=== PATIENT | female | born 1950 | race Caucasian/White ===

== ENCOUNTER 2018-09-15 16:38 | Inpatient (IN) | payer MEDICARE ==
[2018-09-15] MEDS ORDERED: HumaLOG 300 UNITS/3 ML VIAL SC PRN ×2 (19:34)
[2018-09-15] MEDS ORDERED: Dextrose 50% Abboject 50 ML SYRINGE IVP PRN (19:34)
[2018-09-15] MEDS ORDERED: Dextrose 5% in Water 1,000 ML IV PRN (19:34)
[2018-09-15] MEDS ORDERED: Acetaminophen 500 MG TAB PO PRN (19:35)
[2018-09-15] MEDS: Carvedilol 6.25 MG TAB PO SCH (21:05)
[2018-09-15] MEDS: HYDROcodone/Acetaminophen 10/325 mg Tablet PO SCH (21:06)
[2018-09-15] MEDS: Vancomycin HCl 750 MG in Sodium Chloride 0.9% 250 ML 250 ML IVPB SCH (21:08)
[2018-09-15] MEDS: Pravastatin Sodium 20 MG TAB PO SCH (21:09)
[2018-09-15] MEDS: Loratadine 10 MG TAB PO SCH (21:09)
[2018-09-15] MEDS: Temazepam 15 MG CAP PO PRN (22:56)
[2018-09-16] MEDS: HYDROcodone/Acetaminophen 10/325 mg Tablet PO PRN ×4 (01:10→21:31)
[2018-09-16] MEDS: Aspirin 81 mg Enteric Coated Tablet PO SCH (08:48)
[2018-09-16] MEDS: HYDROcodone/Acetaminophen 10/325 mg Tablet PO SCH (08:49)
[2018-09-16] MEDS: Escitalopram Oxalate 20 mg Tablet PO SCH (08:49)
[2018-09-16] MEDS: Docusate 100 MG CAP PO SCH (08:49)
[2018-09-16] MEDS: Carvedilol 6.25 MG TAB PO SCH (08:50)
[2018-09-16] MEDS: Calcium Acetate 667 MG CAP PO SCH ×3 (08:50→17:28)
[2018-09-16] MEDS: Folic Acid/Vit B Comp W-C PO SCH (09:55)
[2018-09-16] MEDS: traMADol HCl 50 MG TAB PO PRN (15:26)
--- NOTE | 2018-09-16 18:27 | HP ---
PRINCIPAL DIAGNOSIS: Infection of hardware in her right knee, requiring removal of hardware and placement of knee immobilizer and vancomycin with hemodialysis. BRIEF HISTORY: This is a pleasant 67-year-old female, who apparently suffered an intra-articular fracture of the right distal femur, requiring open reduction and internal fixation. This unfortunately got infected and cultures grew MRSA. She was admitted for debridement of the infected area, removal of hardware, placement of immobilizer and vancomycin until November [address] Mckeon for resistant MRSA. She is also on hemodialysis for end-stage renal disease and that will be done in [place] on Thursday, Thursday, Thursday. She is also here for therapy. The patient is resting comfortably except for pain. She denies any fever or chills. She denies any chest pain or shortness of breath. She apparently does have anxiety and has episodes of crying spells and she apparently was crying pretty much most of the night yesterday, but is doing much better this morning. No family at bedside. PAST MEDICAL HISTORY: 1. Dyslipidemia. 2. Coronary artery disease. 3. Gastroesophageal reflux disease. 4. Osteoporosis. 5. Allergic rhinitis. 6. End-stage renal disease, on hemodialysis. 7. History of breast cancer. 8. Depression and anxiety. PAST SURGICAL HISTORY: 1. Right mastectomy. 2. Coronary artery bypass grafting. 3. Nephrectomy. 4. Two partial hysterectomy and multiple AV fistulas and revisions. 5. History of ileostomy. 6. History of aortic valve repair. 7. History of right knee surgery for distal right femur fracture. ALLERGIES: TO ATORVASTATIN, CEFUROXIME, MEPERIDINE, AND NITROFURANTOIN. FAMILY HISTORY: Positive for Parkinson disease in her mother and CVA in her father. PSYCHOSOCIAL HISTORY: Denies any tobacco, alcohol, or recreational drug use. REVIEW OF SYSTEMS: CARDIOVASCULAR SYSTEM: Denies any chest pain, shortness of breath, palpitations, PND, orthopnea, or pedal edema. RESPIRATORY SYSTEM: Denies any chronic cough, expectoration, or pleuritic-type chest pain. GASTROINTESTINAL SYSTEM: Denies any nausea, vomiting, diarrhea, constipation, hematemesis, melena, or hematochezia. GENITOURINARY SYSTEM: Denies any frequency, urgency, dysuria, or hematuria. She is on long-term hemodialysis. CENTRAL NERVOUS SYSTEM: Denies any focal numbness, weakness, or fainting spells. EXTREMITIES: Complains of right knee and leg pain. HEENT: Denies any difficulty with speech, vision, hearing or swallowing. SKIN: Denies any rash. PHYSICAL EXAMINATION: GENERAL: A pleasant 67-year-old, thin, female, in no apparent distress. She responds appropriate to questions. She is alert, awake, and oriented x3. VITAL SIGNS: She is afebrile. Heart rate 76, respirations 20, oxygen saturation 94% on room air, blood pressure 107/48. HEENT: Normocephalic, atraumatic. Pupils equal and reactive to light and accommodation. Extraocular muscles intact. NECK: No JVD, thyromegaly, cervical lymphadenopathy, or throat exudates. No carotid bruits. CARDIOVASCULAR SYSTEM: S1 and S2 plus. Rate and rhythm regular. RESPIRATORY SYSTEM: Normal vesicular breath sounds heard in all lung sanchez. ABDOMEN: Soft and nontender. Bowel sounds heard in all quadrants. EXTREMITIES: Without cyanosis or clubbing. Right knee in a knee immobilizer. CENTRAL NERVOUS SYSTEM: AAO x3. Cranial nerves 2 through 12 intact. Motor system examination is grossly nonfocal except for weakness because of her right knee immobilization. LABORATORY VALUES: Last laboratory values were done on September 14. White count is 10.2, H and H are 9.8 and 33.5. Chemistry; sodium 133, potassium 4.0, BUN and creatinine are 36 and 3.61. Laboratory values were not done here, because she has no stick in both arms and I did not want to stick her in her legs unless it is absolutely necessary. Plan is to have her labs done during dialysis and have them fax us the report. IMPRESSION: 1. Infection of the hardware, used for right distal femur fracture, requiring removal of hardware and placement of immobilizer. Infection is possibly methicillin-resistant Staphylococcus aureus and she is on vancomycin with hemodialysis until November 09. 2. Coronary artery disease. 3. Dyslipidemia. 4. End-stage renal disease, on hemodialysis. 5. Depression and anxiety. 6. Hyponatremia. 7. Anemia of chronic disease. 8. History of breast cancer. PLAN: 1. Continue current medications. 2. Simplify her pain regimen by making tramadol 50 mg q.6 routine and Murray 10/325 q.4 p.r.n. 3. Continue vancomycin with hemodialysis. 4. She is on contact isolation for MRSA even though it is in her joints. 5. Nutritional support with heart healthy renal diet. 6. Hemodialysis, Thursday, Thursday, Thursday and labs with hemodialysis. 7. Continue knee immobilization, orthopedic precautions, and incision care. 8. PT/OT eval and treat. 9. DVT prophylaxis. She does get heparin with hemodialysis and she is on aspirin 81 mg daily and along with therapy, her risk is low. We will get her on heparin 5000 units subcu b.i.d. Routine laboratory values during dialysis. Monitor cardiovascular system. She is already on Lexapro 20 mg. We will add Wellbutrin and discontinue the Celexa. Discussed with the patient and nursing in detail. All questions answered. Job ID: [id number]
[2018-09-16] MEDS: Temazepam 15 MG CAP PO PRN (21:30)
[2018-09-16] MEDS: Loratadine 10 MG TAB PO SCH (21:31)
[2018-09-16] MEDS: Pravastatin Sodium 20 MG TAB PO SCH (21:31)
[2018-09-16] MEDS: buPROPion HCl 100 MG TAB PO SCH (21:33)
[2018-09-17 06:20] LABS: ALT (SGPT) 15 U/L (8-55); AST (SGOT) 21 U/L (5-34); Alkaline Phosphatase 270 U/L (40-150); Anion Gap 20 mmol/L (10-20); BUN (Urea Nitrogen) 62 mg/dL (9.8-20.1); Bilirubin, Total 0.4 mg/dL (0.2-1.2); Calc. Creatinine Clearance 8 mL/min (70-130); Calcium 8.9 mg/dL (7.8-10.44); Carbon Dioxide 18 mmol/L (23-31); Chloride 94 mmol/L (98-107); Estimated GFR-MDRD 8; Globulin 3.9 g/dL (2.4-3.5); Glucose 94 mg/dL (80-115); Protein, Total 6.9 g/dL (6.0-8.3); Sodium 127 mmol/L (136-145)
[2018-09-17 06:28] LABS: #Basophils 0.2 thou/uL (0.0-0.2); #Eosinphils 1.1 thou/uL (0.0-0.7); #Lymphocytes 1.6 thou/uL (1.20-3.40); #Monocytes 0.8 thou/uL (0.11-0.59); #Neutrophils 4.6 thou/uL (1.40-6.50); %Basophils 2.1 % (0.0-1.0); %Eosinophils 12.8 % (0.0-10.0); %Lymphocytes 19.9 % (21.0-51.0); %Monocytes 9.1 % (0.0-10.0); Hemoglobin 8.9 g/dL (12.0-16.0); Mean Corpuscular HGB CONC 28.7 g/dL (32.0-36.0); Mean Corpuscular Hemoglobin 26.7 pg (27.0-31.0); Mean Corpuscular Volume 93.1 fL (78.0-98.0); Mean Platelet Volume 6.5 fL (7.4-10.4); Platelet Count 381 thou/uL (130-400); RBC Distribution Width 19.2 % (11.5-14.5); Red Blood Cell (RBC) Count 3.35 mill/uL (4.20-5.40); White Blood Cell (WBC) Count 8.2 thou/uL (4.8-10.8)
[2018-09-17 06:29] LABS: Anisocytosis SLIGHT = 6-15 cells (100X) (0-5/hpf); Crenated RBC SLIGHT = 1-5 cells (100X) (None Seen); Hypochromia SLIGHT = 6-15 cells (100X) (0-5/hpf); MDiff Complete? YES; Platelet Morphology Comment Appears Adequate
[2018-09-17] MEDS: HYDROcodone/Acetaminophen 10/325 mg Tablet PO PRN ×3 (07:53→20:55)
[2018-09-17] MEDS: Calcium Acetate 667 MG CAP PO SCH ×3 (08:20→17:34)
--- NOTE | 2018-09-17 10:31 | PRG ---
DATE OF SERVICE: 09/17/2018 SUBJECTIVE: Ms. Alarcon was seen on her way to dialysis. She apparently is still having some crying spells. She was started on Wellbutrin. No family at bedside. Discussed with nursing. OBJECTIVE: VITAL SIGNS: She is afebrile. Heart rate 81, respirations 20, oxygen saturation 95% on room air, blood pressure 127/59. CARDIOVASCULAR: S1, S2 plus. RESPIRATORY: Normal vesicular breath sounds. ABDOMEN: Soft, nontender. Bowel sounds heard in all quadrants. EXTREMITIES: Without cyanosis, clubbing. Right knee in an immobilizer. CENTRAL NERVOUS SYSTEM: AO x3. Cranial nerves 2 through 12 intact. Generalized weakness. LABORATORY VALUES: White count is 8.2, H and H is 8.9 and 31.2. Sodium 127, potassium 5.0, BUN and creatinine 62 and 5.49. IMPRESSION: 1. Infection of the right knee surgical repair site requiring removal of hardware and placement of immobilizer. 2. End-stage renal disease. 3. Hyponatremia. 4. Anxiety and depression. 5. Deconditioning. 6. Dyslipidemia. 7. Coronary artery disease. 8. Gastroesophageal reflux disease. 9. Osteoporosis. 10. Allergic rhinitis. PLAN: 1. Continue current medications. 2. Heart healthy, renal diet. 3. Hemodialysis. 4. Continue IV Zosyn. 5. Correction of sodium at dialysis. 6. Monitor response to Wellbutrin. She is already on Lexapro. 7. DVT and stress ulcer prophylaxis. We will start her on heparin 5000 units subcu b.i.d. 8. Continue immobilization, orthopedic precautions. 9. Monitor response to Zosyn. 10. Discussed with the patient in detail. All questions answered. Job ID: [id number]
[2018-09-17] MEDS: Folic Acid/Vit B Comp W-C PO SCH (10:43)
[2018-09-17] MEDS: Aspirin 81 mg Enteric Coated Tablet PO SCH (10:43)
[2018-09-17] MEDS: Carvedilol 6.25 MG TAB PO SCH ×2 (10:43→20:56)
[2018-09-17] MEDS: buPROPion HCl 100 MG TAB PO SCH ×2 (10:43→20:56)
[2018-09-17] MEDS: Escitalopram Oxalate 20 mg Tablet PO SCH (10:43)
[2018-09-17] MEDS: Docusate 100 MG CAP PO SCH (10:43)
[2018-09-17] MEDS: Vancomycin HCl 750 MG in Sodium Chloride 0.9% 250 ML 250 ML IVPB SCH (11:28)
[2018-09-17] MEDS: Temazepam 15 MG CAP PO PRN (20:54)
[2018-09-17] MEDS: Pravastatin Sodium 20 MG TAB PO SCH (20:56)
[2018-09-17] MEDS: Loratadine 10 MG TAB PO SCH (20:56)
[2018-09-17] MEDS: Heparin 5,000 UNITS/ML VIAL SC SCH (20:57)
[2018-09-18] MEDS: HYDROcodone/Acetaminophen 10/325 mg Tablet PO PRN ×3 (04:55→21:03)
[2018-09-18] MEDS: Heparin 5,000 UNITS/ML VIAL SC SCH ×2 (08:58→21:04)
[2018-09-18] MEDS: Calcium Acetate 667 MG CAP PO SCH ×3 (09:00→17:51)
[2018-09-18] MEDS: traMADol HCl 50 MG TAB PO PRN (09:00)
[2018-09-18] MEDS: Aspirin 81 mg Enteric Coated Tablet PO SCH (09:01)
[2018-09-18] MEDS: buPROPion HCl 100 MG TAB PO SCH ×2 (09:01→21:04)
[2018-09-18] MEDS: Docusate 100 MG CAP PO SCH ×2 (09:01→21:05)
[2018-09-18] MEDS: Carvedilol 6.25 MG TAB PO SCH ×2 (09:01→21:03)
[2018-09-18] MEDS: Escitalopram Oxalate 20 mg Tablet PO SCH (09:01)
[2018-09-18] MEDS: Folic Acid/Vit B Comp W-C PO SCH (11:05)
[2018-09-18] MEDS: Temazepam 15 MG CAP PO PRN (21:03)
[2018-09-18] MEDS: Loratadine 10 MG TAB PO SCH (21:04)
[2018-09-18] MEDS: Pravastatin Sodium 20 MG TAB PO SCH (21:04)
[2018-09-19] MEDS: HYDROcodone/Acetaminophen 10/325 mg Tablet PO PRN ×2 (06:29→13:35)
[2018-09-19] MEDS: Ondansetron ODT 4 MG TAB PO PRN ×2 (09:07→20:35)
[2018-09-19] MEDS: Polyethylene Glycol 3350 17 GM Packet PO SCH (09:08)
[2018-09-19] MEDS: Aspirin 81 mg Enteric Coated Tablet PO SCH (09:09)
[2018-09-19] MEDS: Escitalopram Oxalate 20 mg Tablet PO SCH (09:11)
[2018-09-19] MEDS: buPROPion HCl 100 MG TAB PO SCH ×2 (09:11→20:26)
[2018-09-19] MEDS: Calcium Acetate 667 MG CAP PO SCH ×3 (09:11→17:47)
[2018-09-19] MEDS: Carvedilol 6.25 MG TAB PO SCH (09:12)
[2018-09-19] MEDS: traMADol HCl 50 MG TAB PO PRN ×2 (09:12→17:47)
[2018-09-19] MEDS: Folic Acid/Vit B Comp W-C PO SCH (09:13)
[2018-09-19] MEDS: Heparin 5,000 UNITS/ML VIAL SC SCH ×2 (09:13→20:27)
[2018-09-19] MEDS: Docusate 100 MG CAP PO SCH ×2 (09:14→20:27)
--- NOTE | 2018-09-19 19:51 | PRG ---
DATE OF SERVICE: 09/19/2018 SUBJECTIVE: The patient feels well except for muscle spasms and is asking for muscle relaxant that she is not taking any. She states that her back feels well except for occasional spasm. She is having no nausea, vomiting, diarrhea, and is eating well. OBJECTIVE: VITAL SIGNS: Show temperature is 97.9, pulse 82, respirations 20, O2 sats 94% on room air, and blood pressure is 148/86. LUNGS: Clear. CARDIAC: Showed regular rhythm. ABDOMEN: Soft and nontender. EXTREMITIES: Right knee appears to be healing well with immobilizer in place. ASSESSMENT: 1. Resolving methicillin-resistant Staphylococcus aureus infection of right knee, status post removal of hardware and placement of antibiotic beads and placement of immobilizer. 2. End-stage renal disease on hemodialysis, tolerating well. 3. Deconditioning, improving greatly. 4. Anxiety and depression, improved on Lexapro and Wellbutrin. 5. Hyponatremia, improving on fluid restriction. PLAN: 1. Start on cyclobenzaprine 5 mg three times daily as needed for muscle spasm. 2. Continue on IV Zosyn. 3. Continue dialysis. 4. Continue PT and occupational therapy. 5. Continue DVT and stress ulcer prophylaxis. Job ID: [id number]
--- NOTE | 2018-09-19 19:56 | PRG ---
DATE OF SERVICE: 09/18/[address] Ceron. SUBJECTIVE: The patient feels well, lying in bed. No complaints. Nurses state however that she is complaining to them about taking her immobilizer off. She is resting well. No nausea, vomiting, fever, or chills. OBJECTIVE: VITAL SIGNS: Show temperature 98.3, pulse 78, respirations 16, O2 saturations 93% on room air, blood pressure 117/56. LUNGS: Clear. CARDIAC: Showed regular rhythm. ABDOMEN: Soft and nontender. EXTREMITIES: Right knee is in immobilizer, appears to be minimal swelling. No erythema or warmth. ASSESSMENT: 1. Resolving infection of right knee, on vancomycin at dialysis three times weekly. 2. Anxiety and depression, improving on bupropion and Lexapro. 3. End-stage renal disease, on hemodialysis. 4. Coronary artery disease, asymptomatic. 5. Deconditioning, improving with therapy. PLAN: Continue PT/OT. Continue IV vancomycin at dialysis. Continue dialysis three times weekly. Continue DVT and stress ulcer prophylaxis. Job ID: [id number]
[2018-09-19] MEDS: Loratadine 10 MG TAB PO SCH (20:29)
[2018-09-19] MEDS: Pravastatin Sodium 20 MG TAB PO SCH (20:29)
[2018-09-19] MEDS: Temazepam 15 MG CAP PO PRN (21:52)
[2018-09-20] MEDS: HYDROcodone/Acetaminophen 10/325 mg Tablet PO PRN ×4 (00:01→20:48)
[2018-09-20] MEDS: Calcium Acetate 667 MG CAP PO SCH ×3 (08:28→16:35)
[2018-09-20] MEDS: Aspirin 81 mg Enteric Coated Tablet PO SCH (09:30)
[2018-09-20] MEDS: Docusate 100 MG CAP PO SCH ×2 (09:31→20:48)
[2018-09-20] MEDS: Carvedilol 6.25 MG TAB PO SCH ×2 (09:31→20:47)
[2018-09-20] MEDS: buPROPion HCl 100 MG TAB PO SCH ×2 (09:31→20:47)
[2018-09-20] MEDS: Folic Acid/Vit B Comp W-C PO SCH (09:31)
[2018-09-20] MEDS: Escitalopram Oxalate 20 mg Tablet PO SCH (09:31)
[2018-09-20] MEDS: Vancomycin HCl 750 MG in Sodium Chloride 0.9% 250 ML 250 ML IVPB SCH (09:32)
[2018-09-20] MEDS: Heparin 5,000 UNITS/ML VIAL SC SCH ×2 (09:32→20:46)
[2018-09-20] MEDS: Polyethylene Glycol 3350 17 GM Packet PO SCH (09:32)
--- NOTE | 2018-09-20 09:55 | PRG ---
DATE OF SERVICE: 09/20/2018 SUBJECTIVE: Ms. Alarcon was seen on her way to dialysis. She feels like the Wellbutrin is helping. She still is having episodes of depression and crying spells. She is still not tolerating the knee immobilizer. No family at bedside. OBJECTIVE: VITAL SIGNS: She is afebrile, heart rate 74, respirations 20, oxygen saturation 93% on room air, and blood pressure is 146/68. CARDIOVASCULAR SYSTEM: S1 and S2 plus. RESPIRATORY SYSTEM: Normal vesicular breath sounds. ABDOMEN: Soft, nontender. Bowel sounds heard in all quadrants. EXTREMITIES: Without cyanosis or clubbing. Right knee in an immobilizer. IMPRESSION: 1. Right knee hardware infection, requiring removal of hardware and placement of immobilizer. 2. Dyslipidemia. 3. Coronary artery disease. 4. Gastroesophageal reflux disease. 5. Osteoporosis. 6. Allergic rhinitis. 7. End-stage renal disease, on hemodialysis. 8. Depression and anxiety. PLAN: 1. Continue current medications. 2. Orthopedic precautions. 3. Antibiotics. 4. Hemodialysis. 5. Monitor response to Wellbutrin, which is added to the Lexapro. 6. DVT and stress ulcer prophylaxis. 7. Decubitus precautions. 8. Routine laboratory values. 9. Discussed with the patient in detail and all questions answered. Job ID: [id number]
[2018-09-20] MEDS: Cyclobenzaprine 10 MG TAB PO PRN ×2 (14:35→20:47)
[2018-09-20] MEDS: traMADol HCl 50 MG TAB PO PRN (17:59)
[2018-09-20] MEDS: Temazepam 15 MG CAP PO PRN (20:47)
[2018-09-20] MEDS: Pravastatin Sodium 20 MG TAB PO SCH (20:47)
[2018-09-20] MEDS: Loratadine 10 MG TAB PO SCH (20:48)
[2018-09-21] MEDS: Carvedilol 6.25 MG TAB PO SCH ×2 (08:43→08:44)
[2018-09-21] MEDS: Calcium Acetate 667 MG CAP PO SCH ×4 (08:43→17:14)
[2018-09-21] MEDS: Aspirin 81 mg Enteric Coated Tablet PO SCH (08:43)
[2018-09-21] MEDS: buPROPion HCl 100 MG TAB PO SCH ×2 (08:43→21:54)
[2018-09-21] MEDS: Docusate 100 MG CAP PO SCH ×2 (08:44→21:55)
[2018-09-21] MEDS: Polyethylene Glycol 3350 17 GM Packet PO SCH (08:45)
[2018-09-21] MEDS: Heparin 5,000 UNITS/ML VIAL SC SCH ×2 (08:45→21:55)
[2018-09-21] MEDS: Folic Acid/Vit B Comp W-C PO SCH (08:45)
[2018-09-21] MEDS: Escitalopram Oxalate 20 mg Tablet PO SCH (08:45)
[2018-09-21] MEDS: HYDROcodone/Acetaminophen 10/325 mg Tablet PO PRN ×3 (08:45→17:45)
[2018-09-21] MEDS: Cyclobenzaprine 10 MG TAB PO PRN ×2 (08:46→17:45)
[2018-09-21] MEDS: Ondansetron ODT 4 MG TAB PO PRN ×2 (09:32→21:57)
[2018-09-21] MEDS: Cinacalcet HCl 30 MG TAB PO SCH ×2 (12:10→12:11)
--- NOTE | 2018-09-21 14:31 | PRG ---
DATE OF SERVICE: 09/21/2018 SUBJECTIVE: Ms. Alarcon is resting comfortably. She denies any complaints. Discussed with nursing. She is tolerating her hemodialysis and her vancomycin with hemodialysis. No fever or chills. No chest pain. Pain is controlled. Anxiety seems to be getting under control per the patient. OBJECTIVE: VITAL SIGNS: She is afebrile. Heart rate 90, respirations 16, oxygen saturation 92% on room air, and blood pressure 146/68. CARDIOVASCULAR SYSTEM: S1 and S2 plus. RESPIRATORY SYSTEM: Normal vesicular breath sounds. ABDOMEN: Soft, nontender. Bowel sounds heard in all quadrants. EXTREMITIES: Without cyanosis or clubbing. Right knee is in an immobilizer. CENTRAL NERVOUS SYSTEM: AAO x3. Cranial nerves 2 through 12 intact. Generalized weakness. IMPRESSION: 1. Dyslipidemia. 2. Coronary artery disease. 3. Gastroesophageal reflux disease. 4. Osteoporosis. 5. End-stage renal disease, on hemodialysis. 6. Depression and anxiety. 7. Right knee distal femur hardware infection, requiring removal of hardware and placement of immobilizer. PLAN: 1. Continue vancomycin with hemodialysis. 2. Continue Sensipar on dialysis days. 3. Nutritional support with heart healthy diet. 4. DVT and stress ulcer prophylaxis. 5. Decubitus precautions. 6. Orthopedic precautions. 7. Continue immobilizer. 8. Laboratory values with hemodialysis. She is a very hard stick as well as no lab draws on both upper extremities, other only place to stick her is in her feet, and when we did it the last time for baseline, she said it was very painful and she does not want us to do any further labs. She understands the risks. Job ID: [id number]
[2018-09-21] MEDS: Loratadine 10 MG TAB PO SCH (21:55)
[2018-09-21] MEDS: Pravastatin Sodium 20 MG TAB PO SCH (21:56)
[2018-09-21] MEDS: Temazepam 15 MG CAP PO PRN (21:57)
[2018-09-22] MEDS: traMADol HCl 50 MG TAB PO PRN ×2 (06:00→17:43)
[2018-09-22] MEDS: HYDROcodone/Acetaminophen 10/325 mg Tablet PO PRN ×3 (07:55→20:27)
[2018-09-22] MEDS: Cyclobenzaprine 10 MG TAB PO PRN (07:56)
[2018-09-22] MEDS ORDERED: Cinacalcet HCl 30 MG TAB PO SCH (09:00)
[2018-09-22] MEDS ORDERED: CINACALCET HCL 30 MG PO SCH (09:00)
[2018-09-22] MEDS: Calcium Acetate 667 MG CAP PO SCH ×3 (09:21→17:39)
[2018-09-22] MEDS: Folic Acid/Vit B Comp W-C PO SCH (09:22)
[2018-09-22] MEDS: Vancomycin HCl 750 MG in Sodium Chloride 0.9% 250 ML 250 ML IVPB SCH (09:22)
[2018-09-22] MEDS: Docusate 100 MG CAP PO SCH ×2 (09:22→20:26)
[2018-09-22] MEDS: buPROPion HCl 100 MG TAB PO SCH ×2 (09:22→20:26)
[2018-09-22] MEDS: Heparin 5,000 UNITS/ML VIAL SC SCH ×2 (09:22→20:28)
[2018-09-22] MEDS: Polyethylene Glycol 3350 17 GM Packet PO SCH (09:22)
[2018-09-22] MEDS: Aspirin 81 mg Enteric Coated Tablet PO SCH (09:22)
[2018-09-22] MEDS: Escitalopram Oxalate 20 mg Tablet PO SCH (09:22)
[2018-09-22] MEDS: Ondansetron ODT 4 MG TAB PO PRN (18:48)
[2018-09-22] MEDS: Temazepam 15 MG CAP PO PRN (20:27)
[2018-09-22] MEDS: Loratadine 10 MG TAB PO SCH (20:27)
[2018-09-22] MEDS: Carvedilol 6.25 MG TAB PO SCH (20:27)
[2018-09-22] MEDS: Pravastatin Sodium 20 MG TAB PO SCH (20:27)
[2018-09-23] MEDS: HYDROcodone/Acetaminophen 10/325 mg Tablet PO PRN ×2 (08:24→21:06)
[2018-09-23] MEDS: buPROPion HCl 100 MG TAB PO SCH ×2 (08:25→21:08)
[2018-09-23] MEDS: Carvedilol 6.25 MG TAB PO SCH (08:25)
[2018-09-23] MEDS: Docusate 100 MG CAP PO SCH ×2 (08:25→21:08)
[2018-09-23] MEDS: Calcium Acetate 667 MG CAP PO SCH ×3 (08:25→18:08)
[2018-09-23] MEDS: Escitalopram Oxalate 20 mg Tablet PO SCH (08:26)
[2018-09-23] MEDS: Heparin 5,000 UNITS/ML VIAL SC SCH ×2 (08:26→21:06)
[2018-09-23] MEDS: Folic Acid/Vit B Comp W-C PO SCH (08:26)
[2018-09-23] MEDS: Aspirin 81 mg Enteric Coated Tablet PO SCH (09:09)
[2018-09-23] MEDS: Polyethylene Glycol 3350 17 GM Packet PO SCH (09:09)
[2018-09-23] MEDS: traMADol HCl 50 MG TAB PO PRN ×2 (12:34→18:07)
--- NOTE | 2018-09-23 13:40 | PRG ---
DATE OF SERVICE: 09/23/2018 SUBJECTIVE: Ms. Alarcon is doing well. She just had an appointment with Dr. Johnson and apparently was told that she does not need to wear her immobilizer anymore. I advised nursing to contact Dr. Johnson' office and to confirm the order just to be safe. She is having some heartburn issues and would like something for it. No other concerns or questions. No family at bedside. OBJECTIVE: VITAL SIGNS: She is afebrile. Heart rate 75, respirations 18, oxygen saturation 96% on room air, and blood pressure 146/68. CARDIOVASCULAR SYSTEM: S1-S2 plus. RESPIRATORY SYSTEM: Normal vesicular breath sounds. ABDOMEN: Soft and nontender. Bowel sounds heard in all quadrants. EXTREMITIES: Without cyanosis or clubbing. Right knee with an Arden wrap. IMPRESSION: 1. Hardware infection of the right distal femur fracture, requiring removal of hardware and need for IV antibiotics. 2. End-stage renal disease, on hemodialysis. 3. Depression and anxiety. 4. Possible gastritis. 5. Dyslipidemia. 6. Coronary artery disease without angina. 7. Osteoporosis. 8. Allergic rhinitis. PLAN: 1. Add Pepcid 20 mg p.o. daily. 2. Simethicone 80 mg p.o. a.c. and at bedtime p.r.n. 3. Heart healthy diet. 4. Hemodialysis. 5. Orthopedic precautions. 6. DVT and stress ulcer prophylaxis. 7. Vancomycin with hemodialysis. 8. Continue physical therapy. 9. Discussed with the patient and nursing in detail, and all questions answered. Job ID: [id number]
[2018-09-23] MEDS: Cyclobenzaprine 10 MG TAB PO PRN ×2 (14:27→21:08)
[2018-09-23] MEDS: Simethicone Chewable 80 MG TAB PO PRN (18:11)
[2018-09-23] MEDS: Ondansetron ODT 4 MG TAB PO PRN (19:28)
[2018-09-23] MEDS: Temazepam 15 MG CAP PO PRN (21:08)
[2018-09-23] MEDS: Pravastatin Sodium 20 MG TAB PO SCH (21:08)
[2018-09-23] MEDS: Famotidine 20 MG TAB PO SCH (21:08)
[2018-09-23] MEDS: Loratadine 10 MG TAB PO SCH (21:08)
[2018-09-24] MEDS: Cinacalcet HCl 30 MG TAB PO SCH (06:00)
[2018-09-24] MEDS: traMADol HCl 50 MG TAB PO PRN ×2 (06:03→17:27)
[2018-09-24] MEDS: Calcium Acetate 667 MG CAP PO SCH ×3 (07:38→17:26)
[2018-09-24] MEDS: HYDROcodone/Acetaminophen 10/325 mg Tablet PO PRN ×3 (07:38→20:25)
[2018-09-24] MEDS: Cyclobenzaprine 10 MG TAB PO PRN ×2 (07:43→20:24)
[2018-09-24] MEDS: Carvedilol 6.25 MG TAB PO SCH ×2 (10:09→20:23)
[2018-09-24] MEDS: Aspirin 81 mg Enteric Coated Tablet PO SCH (10:09)
[2018-09-24] MEDS: Docusate 100 MG CAP PO SCH ×2 (10:09→20:23)
[2018-09-24] MEDS: buPROPion HCl 100 MG TAB PO SCH ×2 (10:09→20:24)
[2018-09-24] MEDS: Polyethylene Glycol 3350 17 GM Packet PO SCH ×2 (10:10→15:13)
[2018-09-24] MEDS: Escitalopram Oxalate 20 mg Tablet PO SCH (10:10)
[2018-09-24] MEDS: Folic Acid/Vit B Comp W-C PO SCH (10:10)
[2018-09-24] MEDS: Heparin 5,000 UNITS/ML VIAL SC SCH ×2 (10:10→20:22)
[2018-09-24] MEDS: Vancomycin HCl 750 MG in Sodium Chloride 0.9% 250 ML 250 ML IVPB SCH (10:11)
[2018-09-24] MEDS: Pravastatin Sodium 20 MG TAB PO SCH (20:23)
[2018-09-24] MEDS: Famotidine 20 MG TAB PO SCH (20:24)
[2018-09-24] MEDS: Temazepam 15 MG CAP PO PRN (20:24)
[2018-09-24] MEDS: Loratadine 10 MG TAB PO SCH (20:24)
[2018-09-25] MEDS: traMADol HCl 50 MG TAB PO PRN (00:02)
[2018-09-25] MEDS: Aspirin 81 mg Enteric Coated Tablet PO SCH (08:32)
[2018-09-25] MEDS: Folic Acid/Vit B Comp W-C PO SCH (08:32)
[2018-09-25] MEDS: Cyclobenzaprine 10 MG TAB PO PRN ×2 (08:32→17:44)
[2018-09-25] MEDS: buPROPion HCl 100 MG TAB PO SCH ×2 (08:32→21:16)
[2018-09-25] MEDS: Polyethylene Glycol 3350 17 GM Packet PO SCH (08:32)
[2018-09-25] MEDS: Carvedilol 6.25 MG TAB PO SCH ×2 (08:34→21:16)
[2018-09-25] MEDS: HYDROcodone/Acetaminophen 10/325 mg Tablet PO PRN ×3 (08:35→21:18)
[2018-09-25] MEDS: Escitalopram Oxalate 20 mg Tablet PO SCH (08:35)
[2018-09-25] MEDS: Docusate 100 MG CAP PO SCH ×2 (08:35→21:16)
[2018-09-25] MEDS: Calcium Acetate 667 MG CAP PO SCH ×3 (08:35→17:44)
--- NOTE | 2018-09-25 08:35 | PRG ---
DATE OF SERVICE: 09/25/2018 SUBJECTIVE: Ms. Alarcon is a very pleasant 67-year-old white female, who had a right distal femur intra-articular fracture. She had open reduction and internal fixation done. Unfortunately, she became infected with MRSA. She was debrided. Hardware was removed, placed in an immobilizer and is on vancomycin until November [address] Mckeon. She did have a resistant MRSA. She is also on hemodialysis for end-stage renal disease and goes to [facility] on Thursday, Thursday, and Thursday for that. She is here for physical therapy and occupational therapy to increase her strength and stamina. The patient states that she is doing well this morning and is not having any complaints. She states that she worked really hard at therapies, but somewhat tired and glad she has a weekend off. OBJECTIVE: VITAL SIGNS: Today reveal blood pressure 146/68, pulse 80, respirations 19, O2 saturation 95% on room air, and T-max is 98.6. GENERAL: This is a well-developed, well-nourished, very pleasant white female, in no apparent distress at this time. HEENT: Normocephalic and nontraumatic cranium. Pupils are equally round and reactive. Extraocular movements are intact. Nose and throat are clear and moist. NECK: Supple without masses, nodes, or bruits. CHEST: Clear to auscultation. No rales, rhonchi, wheezes, or cough is heard. HEART: Regular rate and rhythm. No murmurs, gallops, or rubs are noted. ABDOMEN: Soft and nontender without organomegaly. Normal bowel sounds are noted. No rebound or guarding is noted. : Deferred. EXTREMITIES: No clubbing, cyanosis, or edema. The patient's right knee apparently has been cleared to be out of her knee immobilizer per her surgeon. ASSESSMENT: 1. Right distal femur fracture, requiring removal of hardware secondary to infection. The patient is infected with methicillin-resistant Staphylococcus aureus and on vancomycin with hemodialysis until November 09. 2. Coronary artery disease. 3. End-stage renal disease, on hemodialysis Thursday, , and Thursday. 4. Hyperlipidemia. 5. Depression and anxiety. 6. Hyponatremia. 7. Anemia of chronic disease. 8. History of breast cancer. 9. Generalized weakness. PLAN: 1. We will continue her present medications. 2. Continue vancomycin with hemodialysis. 3. Continue contact isolation because of her MRSA. 4. Hemodialysis is now on Thursday, Thursday, and Thursday. 5. PT and OT. 6. DVT prophylaxis. 7. Continue supportive care. Job ID: [id number]
[2018-09-25] MEDS: Heparin 5,000 UNITS/ML VIAL SC SCH ×2 (08:39→21:16)
[2018-09-25] MEDS: Famotidine 20 MG TAB PO SCH (21:16)
[2018-09-25] MEDS: Temazepam 15 MG CAP PO PRN (21:17)
[2018-09-25] MEDS: Loratadine 10 MG TAB PO SCH (21:17)
[2018-09-25] MEDS: Pravastatin Sodium 20 MG TAB PO SCH (21:17)
[2018-09-26] MEDS: Cyclobenzaprine 10 MG TAB PO PRN ×3 (04:03→20:49)
[2018-09-26] MEDS: HYDROcodone/Acetaminophen 10/325 mg Tablet PO PRN ×2 (04:04→20:47)
[2018-09-26] MEDS: Polyethylene Glycol 3350 17 GM Packet PO SCH (08:44)
[2018-09-26] MEDS: Escitalopram Oxalate 20 mg Tablet PO SCH (08:45)
[2018-09-26] MEDS: buPROPion HCl 100 MG TAB PO SCH ×2 (08:45→20:48)
[2018-09-26] MEDS: Folic Acid/Vit B Comp W-C PO SCH (08:45)
[2018-09-26] MEDS: Docusate 100 MG CAP PO SCH ×2 (08:45→20:49)
[2018-09-26] MEDS: Aspirin 81 mg Enteric Coated Tablet PO SCH (08:45)
[2018-09-26] MEDS: Calcium Acetate 667 MG CAP PO SCH ×3 (08:45→17:36)
[2018-09-26] MEDS: Carvedilol 6.25 MG TAB PO SCH ×2 (08:46→09:58)
[2018-09-26] MEDS: Heparin 5,000 UNITS/ML VIAL SC SCH ×2 (08:46→20:47)
--- NOTE | 2018-09-26 09:39 | PRG ---
DATE OF SERVICE: 09/26/2018 SUBJECTIVE: Ms. Alarcon is a very pleasant 67-year-old white female. Unfortunately, she had a right distal femur intra-articular fracture and had an open reduction and internal fixation done. This became infected with MRSA. She had to have her hardware removed and had debridement. Placed in a knee immobilizer and is on vancomycin till October the or per Dr. Mckeon. She is also on hemodialysis in [place] on Thursday, Thursday, and Thursday. She is here for PT and OT to increase her strength and her stamina and to finish her antibiotics. The patient states she is doing very well, is not having any significant complaints. She has had a little bit of constipation, but she said that they are working through that. OBJECTIVE: VITAL SIGNS: Reveal blood pressure 101/49, pulse 81, respirations 18, O2 saturation 93% on room air, and T-max 97.6. GENERAL: On physical exam, this is a well-developed, well-nourished, thin, white female, in no apparent distress at this time. HEENT: Reveals normocephalic and nontraumatic cranium. The pupils are equally round and reactive. Extraocular movements are intact. Nose and throat are moist this morning. NECK: Supple without masses, nodes, or bruits. CHEST: Clear to auscultation. No rales, rhonchi, wheezes, or cough is heard. HEART: Reveals a regular rate and rhythm without murmurs, gallops, or rubs. ABDOMEN: Soft, nontender without organomegaly. Normal bowel sounds are noted in all 4 quadrants. No rebound or guarding is noted. : Deferred. EXTREMITIES: Reveal no clubbing, cyanosis, or edema. The patient's right knee is not in her knee immobilizer at this time early this morning. ASSESSMENT: 1. Right distal femur fracture, requiring removal of hardware secondary to MRSA infection. 2. On vancomycin after hemodialysis through October. 3. Coronary artery disease. 4. End-stage renal disease with hemodialysis on Thursday, , and Thursday. 5. Hyperlipidemia. 6. Hyponatremia. 7. Anemia of chronic disease. 8. History of breast cancer. 9. Depression and anxiety. 10. Generalized weakness. PLAN: 1. Continue present medications. 2. Continue vancomycin post hemodialysis. 3. Continue isolation because of her MRSA. 4. Continue hemodialysis on Thursday, Thursday, and Thursday per her protocol. 5. DVT prophylaxis. 6. Continue physical therapy and occupational therapy. 7. Decubitus precautions. 8. Continue supportive care. Job ID: [id number]
[2018-09-26] MEDS: traMADol HCl 50 MG TAB PO PRN (13:05)
[2018-09-26] MEDS: Pravastatin Sodium 20 MG TAB PO SCH (20:48)
[2018-09-26] MEDS: Famotidine 20 MG TAB PO SCH (20:49)
[2018-09-26] MEDS: Temazepam 15 MG CAP PO PRN (20:49)
[2018-09-26] MEDS: Loratadine 10 MG TAB PO SCH (20:49)
[2018-09-27] MEDS: Cinacalcet HCl 30 MG TAB PO SCH (06:06)
[2018-09-27] MEDS: traMADol HCl 50 MG TAB PO PRN (06:09)
[2018-09-27] MEDS: Cyclobenzaprine 10 MG TAB PO PRN (06:09)
[2018-09-27] MEDS: HYDROcodone/Acetaminophen 10/325 mg Tablet PO PRN ×3 (07:58→20:54)
[2018-09-27] MEDS: buPROPion HCl 100 MG TAB PO SCH ×2 (15:13→20:54)
[2018-09-27] MEDS: Escitalopram Oxalate 20 mg Tablet PO SCH (15:13)
[2018-09-27] MEDS: Carvedilol 6.25 MG TAB PO SCH ×2 (15:13→20:54)
[2018-09-27] MEDS: Docusate 100 MG CAP PO SCH ×2 (15:15→23:07)
[2018-09-27] MEDS: Calcium Acetate 667 MG CAP PO SCH ×3 (15:17→17:55)
[2018-09-27] MEDS: Aspirin 81 mg Enteric Coated Tablet PO SCH (15:20)
[2018-09-27] MEDS: Heparin 5,000 UNITS/ML VIAL SC SCH ×2 (15:27→20:54)
[2018-09-27] MEDS: Folic Acid/Vit B Comp W-C PO SCH (15:28)
[2018-09-27] MEDS: Polyethylene Glycol 3350 17 GM Packet PO SCH ×3 (15:29→18:29)
[2018-09-27] MEDS: Temazepam 15 MG CAP PO PRN (20:54)
[2018-09-27] MEDS: Pravastatin Sodium 20 MG TAB PO SCH (20:54)
[2018-09-27] MEDS: Famotidine 20 MG TAB PO SCH (20:55)
[2018-09-27] MEDS: Loratadine 10 MG TAB PO SCH (20:55)
[2018-09-28] MEDS: Heparin 5,000 UNITS/ML VIAL SC SCH ×2 (08:28→21:25)
[2018-09-28] MEDS: traMADol HCl 50 MG TAB PO PRN ×2 (08:28→16:09)
[2018-09-28] MEDS: Folic Acid/Vit B Comp W-C PO SCH (08:29)
[2018-09-28] MEDS: Carvedilol 6.25 MG TAB PO SCH (08:29)
[2018-09-28] MEDS: Escitalopram Oxalate 20 mg Tablet PO SCH (08:29)
[2018-09-28] MEDS: Aspirin 81 mg Enteric Coated Tablet PO SCH (08:29)
[2018-09-28] MEDS: Calcium Acetate 667 MG CAP PO SCH ×3 (08:29→16:09)
[2018-09-28] MEDS: buPROPion HCl 100 MG TAB PO SCH ×2 (08:29→21:26)
[2018-09-28] MEDS: Docusate 100 MG CAP PO SCH ×2 (08:47→21:26)
[2018-09-28] MEDS: HYDROcodone/Acetaminophen 10/325 mg Tablet PO PRN ×2 (09:56→21:25)
--- NOTE | 2018-09-28 13:09 | PRG ---
DATE OF SERVICE: 09/28/2018 SUBJECTIVE: Ms. Alarcon is doing well, resting comfortably. She states she gets occasional cramping in her legs and the muscle relaxants are helping. She is hoping we can increase the dose and I explained to her she is already on the maximum dose 10 mg t.i.d., and hopefully since she is not using the immobilizer, it will continue to improve. Orthopedics has been cleared her not to wear the immobilizer and can do weightbearing up to 50%. No family at bedside. OBJECTIVE: VITAL SIGNS: She is afebrile. Heart rate 80, respirations 20, oxygen saturation 94% on room air, and blood pressure 110/59. CARDIOVASCULAR SYSTEM: S1 and S2 plus. Rate and rhythm regular. RESPIRATORY SYSTEM: Normal vesicular breath sounds in all lung sanchez. ABDOMEN: Soft, nontender. Bowel sounds heard in all quadrants. EXTREMITIES: Without cyanosis or clubbing. Right knee with wound VAC and Arden wrapping. CENTRAL NERVOUS SYSTEM: Awake and responsive. Cranial nerves 2 through 12 are intact and improving weakness. IMPRESSION: 1. Infection of hardware in the right distal femur fracture requiring removal of hardware and need for IV antibiotics. 2. End-stage renal disease, on hemodialysis. 3. Coronary artery disease without angina. 4. Dyslipidemia. 5. Osteoporosis. 6. Allergic rhinitis. 7. History of depression and anxiety. PLAN: 1. Continue current medications. 2. Vancomycin with hemodialysis. 3. Wound VAC care. 4. Orthopedic precautions. 5. Physical therapy. 6. Heart healthy and renal diet. 7. Routine laboratory values. 8. DVT and stress ulcer prophylaxis. 9. Decubitus precautions. 10. Discussed with the patient in detail and all questions were answered. Job ID: [id number]
[2018-09-28] MEDS: Cyclobenzaprine 10 MG TAB PO PRN (19:12)
[2018-09-28] MEDS: Temazepam 15 MG CAP PO PRN (21:25)
[2018-09-28] MEDS: Pravastatin Sodium 20 MG TAB PO SCH (21:26)
[2018-09-28] MEDS: Loratadine 10 MG TAB PO SCH (21:26)
[2018-09-28] MEDS: Famotidine 20 MG TAB PO SCH (21:26)
[2018-09-29] MEDS: Cinacalcet HCl 30 MG TAB PO SCH (06:08)
[2018-09-29] MEDS: buPROPion HCl 100 MG TAB PO SCH ×2 (07:31→21:12)
[2018-09-29] MEDS: Cyclobenzaprine 10 MG TAB PO PRN ×3 (07:31→22:10)
[2018-09-29] MEDS: Calcium Acetate 667 MG CAP PO SCH ×3 (07:31→17:08)
[2018-09-29] MEDS: Escitalopram Oxalate 20 mg Tablet PO SCH (07:31)
[2018-09-29] MEDS: HYDROcodone/Acetaminophen 10/325 mg Tablet PO PRN ×3 (07:31→21:12)
[2018-09-29] MEDS: Aspirin 81 mg Enteric Coated Tablet PO SCH (07:36)
[2018-09-29] MEDS: Carvedilol 6.25 MG TAB PO SCH ×2 (07:37→21:11)
[2018-09-29] MEDS: Docusate 100 MG CAP PO SCH ×2 (07:37→21:11)
[2018-09-29] MEDS: Polyethylene Glycol 3350 17 GM Packet PO SCH (07:38)
[2018-09-29] MEDS: Folic Acid/Vit B Comp W-C PO SCH (07:38)
[2018-09-29] MEDS: Heparin 5,000 UNITS/ML VIAL SC SCH ×2 (07:38→21:10)
[2018-09-29] MEDS: Famotidine 20 MG TAB PO SCH (21:11)
[2018-09-29] MEDS: Loratadine 10 MG TAB PO SCH (21:11)
[2018-09-29] MEDS: Temazepam 15 MG CAP PO PRN (21:11)
[2018-09-29] MEDS: Pravastatin Sodium 20 MG TAB PO SCH (21:12)
[2018-09-30] MEDS: Folic Acid/Vit B Comp W-C PO SCH (08:12)
[2018-09-30] MEDS: buPROPion HCl 100 MG TAB PO SCH ×2 (08:12→20:11)
[2018-09-30] MEDS: Docusate 100 MG CAP PO SCH ×2 (08:13→20:14)
[2018-09-30] MEDS: HYDROcodone/Acetaminophen 10/325 mg Tablet PO PRN ×3 (08:13→22:13)
[2018-09-30] MEDS: Polyethylene Glycol 3350 17 GM Packet PO SCH (08:15)
[2018-09-30] MEDS: Escitalopram Oxalate 20 mg Tablet PO SCH (08:15)
[2018-09-30] MEDS: Aspirin 81 mg Enteric Coated Tablet PO SCH (08:15)
[2018-09-30] MEDS: Cyclobenzaprine 10 MG TAB PO PRN ×2 (08:15→18:10)
[2018-09-30] MEDS: Carvedilol 6.25 MG TAB PO SCH (08:17)
[2018-09-30] MEDS: Heparin 5,000 UNITS/ML VIAL SC SCH ×2 (08:22→20:14)
[2018-09-30] MEDS: Calcium Acetate 667 MG CAP PO SCH ×3 (08:22→17:36)
--- NOTE | 2018-09-30 13:42 | PRG ---
DATE OF SERVICE: 09/30/2018 SUBJECTIVE: Ms. Alarcon is doing well. Denies any complaints. Resting comfortably. Her PhosLo dose was increased per Nephrology recommendations. She apparently is getting lab work with dialysis. She does not want us to do any lab draws from her feet here. She said she will get us a copy of the lab work. No family at bedside. Discussed with nursing. OBJECTIVE: VITAL SIGNS: She is afebrile. Heart rate 75, respirations 20, oxygen saturation 94% on room air, and blood pressure 143/70. CARDIOVASCULAR SYSTEM: S1 and S2 plus. RESPIRATORY SYSTEM: Normal vesicular breath sounds. ABDOMEN: Soft and nontender. Bowel sounds heard in all quadrants. EXTREMITIES: Without cyanosis or clubbing. Right knee with wound VAC placement and covered with DAVIDSON bandage. CENTRAL NERVOUS SYSTEM: Alert, awake, and oriented x3. Cranial nerves 2 through 12 intact. Improving deconditioning. IMPRESSION: 1. Right infection of the hardware placed for right distal femur fracture, requiring removal of hardware and placement of wound VAC. 2. End-stage renal disease, on hemodialysis. 3. Coronary artery disease without angina. 4. Dyslipidemia. 5. Osteoporosis. 6. Allergic rhinitis. 7. Depression and anxiety. PLAN: 1. Continue current medications including vancomycin with dialysis. 2. The patient to get copies of lab reports from dialysis. 3. Wound VAC. 4. DVT and stress ulcer prophylaxis. 5. Decubitus precautions. 6. Routine laboratory values. 7. Physical therapy. 8. Discussed with the patient and nursing in detail and all questions answered. Job ID: [id number]
[2018-09-30] MEDS: traMADol HCl 50 MG TAB PO PRN (14:11)
[2018-09-30] MEDS: Temazepam 15 MG CAP PO PRN (20:11)
[2018-09-30] MEDS: Loratadine 10 MG TAB PO SCH (20:12)
[2018-09-30] MEDS: Pravastatin Sodium 20 MG TAB PO SCH (20:12)
[2018-09-30] MEDS: Famotidine 20 MG TAB PO SCH (20:13)
[2018-10-01] MEDS: HYDROcodone/Acetaminophen 10/325 mg Tablet PO PRN ×4 (03:00→21:34)
[2018-10-01] MEDS: Cyclobenzaprine 10 MG TAB PO PRN ×2 (03:01→16:45)
[2018-10-01] MEDS: Cinacalcet HCl 30 MG TAB PO SCH (06:06)
[2018-10-01] MEDS: traMADol HCl 50 MG TAB PO PRN ×2 (06:06→19:44)
[2018-10-01] MEDS: Calcium Acetate 667 MG CAP PO SCH ×3 (07:41→16:35)
[2018-10-01] MEDS: buPROPion HCl 100 MG TAB PO SCH ×2 (10:18→19:43)
[2018-10-01] MEDS: Aspirin 81 mg Enteric Coated Tablet PO SCH (10:18)
[2018-10-01] MEDS: Carvedilol 6.25 MG TAB PO SCH ×2 (10:18→21:33)
[2018-10-01] MEDS: Polyethylene Glycol 3350 17 GM Packet PO SCH (10:19)
[2018-10-01] MEDS: Heparin 5,000 UNITS/ML VIAL SC SCH ×2 (10:19→19:43)
[2018-10-01] MEDS: Escitalopram Oxalate 20 mg Tablet PO SCH (10:19)
[2018-10-01] MEDS: Folic Acid/Vit B Comp W-C PO SCH (10:19)
[2018-10-01] MEDS: Docusate 100 MG CAP PO SCH ×2 (10:19→19:43)
[2018-10-01] MEDS: Acetaminophen 500 MG TAB PO PRN (19:43)
[2018-10-01] MEDS: Pravastatin Sodium 20 MG TAB PO SCH (21:29)
[2018-10-01] MEDS: Loratadine 10 MG TAB PO SCH (21:33)
[2018-10-01] MEDS: Famotidine 20 MG TAB PO SCH (21:33)
[2018-10-01] MEDS: Temazepam 15 MG CAP PO PRN (21:35)
[2018-10-02] MEDS: traMADol HCl 50 MG TAB PO PRN (04:03)
[2018-10-02] MEDS: Cyclobenzaprine 10 MG TAB PO PRN ×3 (04:03→20:12)
[2018-10-02] MEDS: Escitalopram Oxalate 20 mg Tablet PO SCH (08:50)
[2018-10-02] MEDS: buPROPion HCl 100 MG TAB PO SCH ×2 (08:50→20:12)
[2018-10-02] MEDS: Calcium Acetate 667 MG CAP PO SCH ×3 (08:50→17:18)
[2018-10-02] MEDS: Folic Acid/Vit B Comp W-C PO SCH (08:50)
[2018-10-02] MEDS: Docusate 100 MG CAP PO SCH ×2 (08:50→20:13)
[2018-10-02] MEDS: Carvedilol 6.25 MG TAB PO SCH ×2 (08:50→20:11)
[2018-10-02] MEDS: Aspirin 81 mg Enteric Coated Tablet PO SCH (08:51)
[2018-10-02] MEDS: HYDROcodone/Acetaminophen 10/325 mg Tablet PO PRN ×3 (08:51→20:11)
[2018-10-02] MEDS: Polyethylene Glycol 3350 17 GM Packet PO SCH (08:52)
[2018-10-02] MEDS: Heparin 5,000 UNITS/ML VIAL SC SCH ×2 (08:52→20:14)
--- NOTE | 2018-10-02 16:55 | PRG ---
DATE OF SERVICE: 10/02/2018 SUBJECTIVE: Ms. Alarcon is doing well except for continued cramping in her right leg. She also has what looks like a deep tissue injury to her right hip area. She apparently lays on that side pretty much most of the day. I encouraged her to keep changing positions and the importance of pressure relief. She states that at home she takes naproxen and it really helps with her leg cramping, so I am going to add naproxen 500 mg b.i.d. She apparently has also been having crying spells and she is on Wellbutrin in addition to the Lexapro, so I am going to add Klonopin 0.5 mg p.o. b.i.d. p.r.n. OBJECTIVE: VITAL SIGNS: She is afebrile. Heart rate is 80, respirations 18, oxygen saturation 94% on room air, blood pressure 115/92. CARDIOVASCULAR: S1, S2 plus. RESPIRATORY: Normal vesicular breath sounds. ABDOMEN: Soft, nontender. Bowel sounds heard in all quadrants. EXTREMITIES: Without cyanosis or clubbing. Right hip incision is healthy. Right knee has a wound VAC in place. IMPRESSION: 1. Infection of hardware in the right distal femur fracture, requiring removal of hardware and placement of wound VAC. 2. End-stage renal disease, on hemodialysis. 3. Depression and anxiety. 4. Right leg muscle spasms. 5. Anemia of chronic disease. 6. Coronary artery disease without angina. 7. Dyslipidemia. 8. Allergic rhinitis. 9. Osteoporosis. 10. Gastroesophageal reflux disease. PLAN: 1. Naproxen 500 mg p.o. b.i.d. 2. Klonopin 0.5 mg p.o. b.i.d. p.r.n. anxiety. 3. Heart healthy diet. 4. DVT and stress ulcer prophylaxis. 5. Decubitus precaution. 6. Wound VAC care. 7. Pressure relief. 8. Hemodialysis per Nephrology. 9. Routine laboratory values at Nephrology. 10. Vancomycin with hemodialysis. 11. Discussed with the patient and nursing in detail. All questions answered. Job ID: [id number]
[2018-10-02] MEDS: Loratadine 10 MG TAB PO SCH (20:12)
[2018-10-02] MEDS: Temazepam 15 MG CAP PO PRN (20:12)
[2018-10-02] MEDS: Pravastatin Sodium 20 MG TAB PO SCH (20:12)
[2018-10-02] MEDS: Naproxen 500 MG TAB PO SCH (20:13)
[2018-10-02] MEDS: Famotidine 20 MG TAB PO SCH (20:13)
[2018-10-03] MEDS: Carvedilol 6.25 MG TAB PO SCH (08:54)
[2018-10-03] MEDS: Docusate 100 MG CAP PO SCH ×2 (08:54→21:14)
[2018-10-03] MEDS: buPROPion HCl 100 MG TAB PO SCH ×2 (08:54→21:14)
[2018-10-03] MEDS: Escitalopram Oxalate 20 mg Tablet PO SCH (08:54)
[2018-10-03] MEDS: Aspirin 81 mg Enteric Coated Tablet PO SCH (08:54)
[2018-10-03] MEDS: Calcium Acetate 667 MG CAP PO SCH ×3 (08:54→17:11)
[2018-10-03] MEDS: Folic Acid/Vit B Comp W-C PO SCH (08:54)
[2018-10-03] MEDS: Heparin 5,000 UNITS/ML VIAL SC SCH ×2 (08:54→21:15)
[2018-10-03] MEDS: Naproxen 500 MG TAB PO SCH ×2 (08:54→21:14)
[2018-10-03] MEDS: Polyethylene Glycol 3350 17 GM Packet PO SCH (08:58)
[2018-10-03] MEDS: traMADol HCl 50 MG TAB PO PRN ×2 (10:48→18:08)
--- NOTE | 2018-10-03 16:08 | PRG ---
DATE OF SERVICE: 10/03/2018 SUBJECTIVE: Ms. Alarcon is doing much better. She states that the naproxen is helping very much, and she has no further spasms in her legs. She has not needed her Klonopin. Discussed with nursing. OBJECTIVE: VITAL SIGNS: She is afebrile, heart rate 74, respirations 18, oxygen saturation 94% on room air, and blood pressure 134/63. CARDIOVASCULAR SYSTEM: S1 and S2 plus. RESPIRATORY SYSTEM: Normal vesicular breath sounds. ABDOMEN: Soft, nontender. Bowel sounds heard in all quadrants. EXTREMITIES: Without cyanosis or clubbing. Wound VAC present over the right knee incision site. IMPRESSION: 1. Infection of hardware in her right knee, requiring removal of hardware and long-term antibiotics. 2. End-stage renal disease, on hemodialysis. 3. Coronary artery disease. 4. Hypertension. 5. Dyslipidemia. 6. Allergic rhinitis. 7. Osteoporosis. 8. Gastroesophageal reflux disease. PLAN: 1. Continue current medications. 2. Heart healthy renal diet. 3. DVT and stress ulcer prophylaxis. 4. Decubitus precautions. 5. Wound VAC care. 6. Physical therapy. 7. Routine laboratory values. 8. Vancomycin with hemodialysis. 9. Discussed with the patient and nursing in detail and all questions answered. Job ID: [id number]
[2018-10-03] MEDS: Simethicone Chewable 80 MG TAB PO PRN (17:14)
[2018-10-03] MEDS: Cyclobenzaprine 10 MG TAB PO PRN (18:09)
[2018-10-03] MEDS: HYDROcodone/Acetaminophen 10/325 mg Tablet PO PRN (21:13)
[2018-10-03] MEDS: Famotidine 20 MG TAB PO SCH (21:14)
[2018-10-03] MEDS: Temazepam 15 MG CAP PO PRN (21:14)
[2018-10-03] MEDS: Pravastatin Sodium 20 MG TAB PO SCH (21:14)
[2018-10-03] MEDS: Loratadine 10 MG TAB PO SCH (21:14)
[2018-10-04] MEDS: Cinacalcet HCl 30 MG TAB PO SCH (06:15)
[2018-10-04] MEDS: HYDROcodone/Acetaminophen 10/325 mg Tablet PO PRN ×3 (07:49→20:55)
[2018-10-04] MEDS: Naproxen 500 MG TAB PO SCH ×2 (08:02→20:55)
[2018-10-04] MEDS: Polyethylene Glycol 3350 17 GM Packet PO SCH (09:00)
[2018-10-04] MEDS: Heparin 5,000 UNITS/ML VIAL SC SCH ×2 (09:03→20:57)
[2018-10-04] MEDS: buPROPion HCl 100 MG TAB PO SCH ×2 (14:30→20:56)
[2018-10-04] MEDS: Calcium Acetate 667 MG CAP PO SCH ×3 (14:38→17:35)
[2018-10-04] MEDS: Docusate 100 MG CAP PO SCH ×2 (14:47→20:55)
[2018-10-04] MEDS: Aspirin 81 mg Enteric Coated Tablet PO SCH (14:47)
[2018-10-04] MEDS: Carvedilol 6.25 MG TAB PO SCH ×2 (14:47→20:56)
[2018-10-04] MEDS: Folic Acid/Vit B Comp W-C PO SCH (14:50)
[2018-10-04] MEDS: Escitalopram Oxalate 20 mg Tablet PO SCH ×2 (14:50→15:17)
[2018-10-04] MEDS: Loratadine 10 MG TAB PO SCH (20:56)
[2018-10-04] MEDS: Temazepam 15 MG CAP PO PRN (20:56)
[2018-10-04] MEDS: Pravastatin Sodium 20 MG TAB PO SCH (20:56)
[2018-10-04] MEDS: Famotidine 20 MG TAB PO SCH (20:56)
[2018-10-04] MEDS: Cyclobenzaprine 10 MG TAB PO PRN (20:56)
[2018-10-05] MEDS: Polyethylene Glycol 3350 17 GM Packet PO SCH (08:05)
[2018-10-05] MEDS: buPROPion HCl 100 MG TAB PO SCH ×2 (08:05→21:36)
[2018-10-05] MEDS: Escitalopram Oxalate 20 mg Tablet PO SCH (08:05)
[2018-10-05] MEDS: Docusate 100 MG CAP PO SCH ×2 (08:05→21:36)
[2018-10-05] MEDS: Naproxen 500 MG TAB PO SCH ×2 (08:05→21:40)
[2018-10-05] MEDS: Calcium Acetate 667 MG CAP PO SCH ×3 (08:05→17:03)
[2018-10-05] MEDS: Folic Acid/Vit B Comp W-C PO SCH (08:06)
[2018-10-05] MEDS: Aspirin 81 mg Enteric Coated Tablet PO SCH (08:06)
[2018-10-05] MEDS: Carvedilol 6.25 MG TAB PO SCH (08:06)
[2018-10-05] MEDS: HYDROcodone/Acetaminophen 10/325 mg Tablet PO PRN ×3 (08:07→21:35)
[2018-10-05] MEDS: Cyclobenzaprine 10 MG TAB PO PRN ×2 (08:07→21:36)
[2018-10-05] MEDS: Heparin 5,000 UNITS/ML VIAL SC SCH ×2 (08:08→21:37)
[2018-10-05] MEDS: traMADol HCl 50 MG TAB PO PRN (11:33)
[2018-10-05] MEDS: Ondansetron ODT 4 MG TAB PO PRN (13:34)
--- NOTE | 2018-10-05 15:20 | PRG ---
DATE OF SERVICE: 10/05/2018 SUBJECTIVE: Ms. Alarcon is doing well, except she is upset that they have changed her room. Her pain is still under control. Denies any concerns or questions, except she states that her allergies are acting up and she normally uses Flonase at home. She also wants something for nausea. OBJECTIVE: VITAL SIGNS: She is afebrile. Heart rate 71, respirations 20, oxygen saturation 95% on room air, blood pressure 126/61. CARDIOVASCULAR: S1 and S2 plus. RESPIRATORY: Normal vesicular breath sounds. ABDOMEN: Soft, nontender. Bowel sounds heard in all quadrants. EXTREMITIES: Without cyanosis or clubbing. Wound VAC in place around the right knee. CENTRAL NERVOUS SYSTEM: Awake and responsive. Cranial nerves 2 through 12 intact. Improving weakness. IMPRESSION: 1. Right knee infected hardware requiring removal of hardware and placement of wound VAC. 2. End-stage renal disease, on hemodialysis. 3. Coronary artery disease. 4. Hypertension. 5. Dyslipidemia. 6. Allergic rhinitis. 7. Depression and anxiety. PLAN: 1. Zofran 4 mg ODT q.6 p.r.n. for nausea. 2. Fluticasone nasal spray one spray each nostril b.i.d. 3. Continue current medications. 4. Vancomycin with hemodialysis. 5. Physical therapy. 6. Wound VAC care. 7. Nutritional support. 8. Laboratory values with hemodialysis. 9. Discussed with the patient in detail. All questions answered. Job ID: [id number]
[2018-10-05] MEDS: Loratadine 10 MG TAB PO SCH (21:35)
[2018-10-05] MEDS: Pravastatin Sodium 20 MG TAB PO SCH (21:36)
[2018-10-05] MEDS: Famotidine 20 MG TAB PO SCH (21:36)
[2018-10-05] MEDS: Temazepam 15 MG CAP PO PRN (21:36)
[2018-10-06] MEDS: Cinacalcet HCl 30 MG TAB PO SCH (06:05)
[2018-10-06] MEDS: Naproxen 500 MG TAB PO SCH ×3 (07:50→21:07)
[2018-10-06] MEDS: Calcium Acetate 667 MG CAP PO SCH ×3 (07:50→17:27)
[2018-10-06] MEDS: Cyclobenzaprine 10 MG TAB PO PRN ×2 (07:51→21:07)
[2018-10-06] MEDS: HYDROcodone/Acetaminophen 10/325 mg Tablet PO PRN ×3 (07:51→21:06)
[2018-10-06] MEDS: Docusate 100 MG CAP PO SCH ×2 (09:30→21:06)
[2018-10-06] MEDS: Escitalopram Oxalate 20 mg Tablet PO SCH (09:30)
[2018-10-06] MEDS: Aspirin 81 mg Enteric Coated Tablet PO SCH (09:30)
[2018-10-06] MEDS: buPROPion HCl 100 MG TAB PO SCH ×2 (09:30→21:07)
[2018-10-06] MEDS: Carvedilol 6.25 MG TAB PO SCH ×2 (09:30→21:06)
[2018-10-06] MEDS: Fluticasone Propionate Nasal Spray 16 gm Bottle NASAL SCH (09:31)
[2018-10-06] MEDS: Folic Acid/Vit B Comp W-C PO SCH (09:31)
[2018-10-06] MEDS: Heparin 5,000 UNITS/ML VIAL SC SCH ×2 (09:31→21:08)
[2018-10-06] MEDS: Polyethylene Glycol 3350 17 GM Packet PO SCH (09:32)
[2018-10-06] MEDS: Ondansetron ODT 4 MG TAB PO PRN (15:11)
[2018-10-06] MEDS: Loratadine 10 MG TAB PO SCH (21:06)
[2018-10-06] MEDS: Famotidine 20 MG TAB PO SCH (21:07)
[2018-10-06] MEDS: Temazepam 15 MG CAP PO PRN (21:07)
[2018-10-06] MEDS: Pravastatin Sodium 20 MG TAB PO SCH (21:07)
[2018-10-07] MEDS: Fluticasone Propionate Nasal Spray 16 gm Bottle NASAL SCH (09:00)
[2018-10-07] MEDS: Polyethylene Glycol 3350 17 GM Packet PO SCH (09:01)
[2018-10-07] MEDS: Folic Acid/Vit B Comp W-C PO SCH (09:01)
[2018-10-07] MEDS: Aspirin 81 mg Enteric Coated Tablet PO SCH (09:01)
[2018-10-07] MEDS: Calcium Acetate 667 MG CAP PO SCH ×3 (09:01→17:47)
[2018-10-07] MEDS: traMADol HCl 50 MG TAB PO PRN (09:02)
[2018-10-07] MEDS: Docusate 100 MG CAP PO SCH ×2 (09:02→21:11)
[2018-10-07] MEDS: Heparin 5,000 UNITS/ML VIAL SC SCH ×2 (09:02→21:09)
[2018-10-07] MEDS: buPROPion HCl 100 MG TAB PO SCH ×2 (09:02→21:10)
[2018-10-07] MEDS: Escitalopram Oxalate 20 mg Tablet PO SCH (09:02)
[2018-10-07] MEDS: Ondansetron ODT 4 MG TAB PO PRN (09:02)
[2018-10-07] MEDS: Naproxen 500 MG TAB PO SCH ×2 (09:02→21:11)
[2018-10-07] MEDS: Carvedilol 6.25 MG TAB PO SCH (09:02)
[2018-10-07] MEDS: Simethicone Chewable 80 MG TAB PO PRN ×2 (09:12→18:02)
[2018-10-07] MEDS: HYDROcodone/Acetaminophen 10/325 mg Tablet PO PRN ×2 (12:08→21:11)
--- NOTE | 2018-10-07 14:12 | PRG ---
DATE OF SERVICE: 10/07/2018 SUBJECTIVE: Ms. Alarcon is up in her wheelchair and working on her lunch. She denies any concerns or questions. She is tolerating her hemodialysis and her diet. No family at bedside. Discussed with nursing. OBJECTIVE: VITAL SIGNS: She is afebrile, heart rate 70, respirations 18, oxygen saturation 93% on room air, blood pressure 123/56. CARDIOVASCULAR: S1 and S2 plus. RESPIRATORY: Normal vesicular breath sounds. ABDOMEN: Soft and nontender. Bowel sounds heard in all quadrants. EXTREMITIES: Without cyanosis or clubbing. Wound VAC to her knee area. IMPRESSION: 1. End-stage renal disease, on hemodialysis. 2. Coronary artery disease. 3. Right knee infected hardware requiring removal of hardware and placement of wound VAC. 4. Hypertension. 5. Dyslipidemia. 6. Allergic rhinitis. 7. Depression and anxiety. PLAN: 1. Continue current medications. 2. Nutritional support. 3. DVT and stress ulcer prophylaxis. 4. Decubitus precautions. 5. Wound VAC care. 6. Hemodialysis per Nephrology. 7. Continue Flonase. 8. Physical therapy. 9. Discussed with the patient and nursing in detail. All questions answered. Job ID: [id number]
[2018-10-07] MEDS: Pravastatin Sodium 20 MG TAB PO SCH (21:09)
[2018-10-07] MEDS: clonazePAM 0.5 MG TAB PO PRN (21:10)
[2018-10-07] MEDS: Famotidine 20 MG TAB PO SCH (21:11)
[2018-10-07] MEDS: Temazepam 15 MG CAP PO PRN (21:11)
[2018-10-07] MEDS: Loratadine 10 MG TAB PO SCH (21:11)
[2018-10-07] MEDS: Cyclobenzaprine 10 MG TAB PO PRN (21:11)
[2018-10-08] MEDS: Cinacalcet HCl 30 MG TAB PO SCH (06:09)
[2018-10-08] MEDS: HYDROcodone/Acetaminophen 10/325 mg Tablet PO PRN ×2 (07:14→20:55)
[2018-10-08] MEDS: Cyclobenzaprine 10 MG TAB PO PRN ×2 (07:14→20:54)
[2018-10-08] MEDS: Calcium Acetate 667 MG CAP PO SCH ×3 (07:14→17:40)
[2018-10-08] MEDS: Simethicone Chewable 80 MG TAB PO PRN (07:21)
[2018-10-08] MEDS: Carvedilol 6.25 MG TAB PO SCH ×2 (07:40→20:53)
[2018-10-08] MEDS: buPROPion HCl 100 MG TAB PO SCH ×2 (09:18→20:54)
[2018-10-08] MEDS: Aspirin 81 mg Enteric Coated Tablet PO SCH (09:18)
[2018-10-08] MEDS: Escitalopram Oxalate 20 mg Tablet PO SCH (09:19)
[2018-10-08] MEDS: Docusate 100 MG CAP PO SCH ×2 (09:19→20:53)
[2018-10-08] MEDS: Fluticasone Propionate Nasal Spray 16 gm Bottle NASAL SCH (09:19)
[2018-10-08] MEDS: Heparin 5,000 UNITS/ML VIAL SC SCH ×2 (09:20→20:53)
[2018-10-08] MEDS: Polyethylene Glycol 3350 17 GM Packet PO SCH (09:20)
[2018-10-08] MEDS: Naproxen 500 MG TAB PO SCH ×2 (09:20→20:54)
[2018-10-08] MEDS: Folic Acid/Vit B Comp W-C PO SCH (09:20)
[2018-10-08] MEDS: traMADol HCl 50 MG TAB PO PRN (15:07)
[2018-10-08] MEDS: Pravastatin Sodium 20 MG TAB PO SCH (20:54)
[2018-10-08] MEDS: Famotidine 20 MG TAB PO SCH (20:54)
[2018-10-08] MEDS: Temazepam 15 MG CAP PO PRN (20:54)
[2018-10-08] MEDS: clonazePAM 0.5 MG TAB PO PRN (20:54)
[2018-10-08] MEDS: Loratadine 10 MG TAB PO SCH (20:55)
[2018-10-09] MEDS: Fluticasone Propionate Nasal Spray 16 gm Bottle NASAL SCH (08:29)
[2018-10-09] MEDS: Polyethylene Glycol 3350 17 GM Packet PO SCH (08:29)
[2018-10-09] MEDS: Folic Acid/Vit B Comp W-C PO SCH (08:29)
[2018-10-09] MEDS: Naproxen 500 MG TAB PO SCH ×2 (08:29→21:03)
[2018-10-09] MEDS: Calcium Acetate 667 MG CAP PO SCH ×3 (08:29→17:11)
[2018-10-09] MEDS: buPROPion HCl 100 MG TAB PO SCH ×2 (08:29→21:04)
[2018-10-09] MEDS: Aspirin 81 mg Enteric Coated Tablet PO SCH (08:29)
[2018-10-09] MEDS: Escitalopram Oxalate 20 mg Tablet PO SCH (08:29)
[2018-10-09] MEDS: traMADol HCl 50 MG TAB PO PRN ×2 (08:30→17:12)
[2018-10-09] MEDS: Docusate 100 MG CAP PO SCH ×2 (08:30→21:02)
[2018-10-09] MEDS: Cyclobenzaprine 10 MG TAB PO PRN ×2 (08:30→21:04)
[2018-10-09] MEDS: Carvedilol 6.25 MG TAB PO SCH ×2 (08:30→21:02)
[2018-10-09] MEDS: Heparin 5,000 UNITS/ML VIAL SC SCH ×2 (08:31→21:03)
--- NOTE | 2018-10-09 08:47 | PRG ---
DATE OF SERVICE: 10/09/2018 HISTORY OF PRESENT ILLNESS: This is a well-developed and well-nourished very pleasant 67-year-old white female, who had a distal right femur intra-articular fracture. She had open reduction and internal fixation done. Unfortunately became infected with MRSA. She had to have her hardware removed and had debridement. She was placed in the knee immobilizer and vancomycin till the [address] Mckeon. She is also on hemodialysis at [facility] on Thursday, Thursday, and Thursday. She is here for continued physical therapy to increase her strength and her stamina. SUBJECTIVE: The patient states she is doing well, slept well last night. She is eating better than she has been. She has no complaints today. OBJECTIVE: VITAL SIGNS: Reveal blood pressure 130/65, pulse 84, respirations 18, O2 saturation 96% on room air, and T-max 98.6. GENERAL: This is a well-developed and well-nourished pleasant 67-year-old white female, in no apparent distress at this time. HEENT: Normocephalic and nontraumatic cranium. Pupils are equal, round, and reactive. Extraocular movements are intact. Nose and throat are slightly moist. NECK: Supple without masses, nodes, or bruits. CHEST: Clear to auscultation. No rales, rhonchi, wheezes, or cough is heard. HEART: Reveals a regular rate and rhythm without murmurs, gallops, or rubs. ABDOMEN: Soft and nontender without organomegaly. Normal bowel sounds are noted in all 4 quadrants. No rebound or guarding is noted. : Deferred. EXTREMITIES: Reveal no clubbing, cyanosis, or edema. The patient's right knee has been removed from the knee immobilizer. The patient is up and standing and walking. ASSESSMENT: 1. Right distal femur fracture. 2. On vancomycin after hemodialysis. 3. Coronary artery disease. 4. End-stage renal dialysis with hemodialysis on Thursday, , and Thursday at [facility]. 5. Hyperlipidemia. 6. Hyponatremia. 7. Anemia of chronic disease. 8. History of breast cancer. 9. Anxiety depressive disorder. 10. Generalized weakness. PLAN: 1. Continue present medications. 2. Continue vancomycin post hemodialysis. 3. Continue hemodialysis on Thursday, , and Thursday at [facility]. 4. DVT prophylaxis. 5. Continue PT and OT. 6. Decubitus precautions. 7. Continue supportive care. Job ID: [id number]
[2018-10-09] MEDS: Simethicone Chewable 80 MG TAB PO PRN (09:44)
[2018-10-09] MEDS: HYDROcodone/Acetaminophen 10/325 mg Tablet PO PRN ×2 (13:31→21:03)
[2018-10-09] MEDS: Ondansetron ODT 4 MG TAB PO PRN ×2 (14:44→20:27)
[2018-10-09] MEDS: clonazePAM 0.5 MG TAB PO PRN (21:02)
[2018-10-09] MEDS: Pravastatin Sodium 20 MG TAB PO SCH (21:02)
[2018-10-09] MEDS: Temazepam 15 MG CAP PO PRN (21:03)
[2018-10-09] MEDS: Famotidine 20 MG TAB PO SCH (21:04)
[2018-10-09] MEDS: Loratadine 10 MG TAB PO SCH (21:04)
[2018-10-10] MEDS: Fluticasone Propionate Nasal Spray 16 gm Bottle NASAL SCH (08:26)
[2018-10-10] MEDS: Polyethylene Glycol 3350 17 GM Packet PO SCH (08:26)
[2018-10-10] MEDS: Naproxen 500 MG TAB PO SCH ×2 (08:27→20:52)
[2018-10-10] MEDS: buPROPion HCl 100 MG TAB PO SCH ×2 (08:27→20:51)
[2018-10-10] MEDS: Cyclobenzaprine 10 MG TAB PO PRN ×2 (08:27→20:52)
[2018-10-10] MEDS: Aspirin 81 mg Enteric Coated Tablet PO SCH (08:27)
[2018-10-10] MEDS: Folic Acid/Vit B Comp W-C PO SCH (08:27)
[2018-10-10] MEDS: Escitalopram Oxalate 20 mg Tablet PO SCH (08:27)
[2018-10-10] MEDS: Calcium Acetate 667 MG CAP PO SCH ×3 (08:27→17:02)
[2018-10-10] MEDS: Docusate 100 MG CAP PO SCH ×2 (08:27→20:51)
[2018-10-10] MEDS: traMADol HCl 50 MG TAB PO PRN (08:28)
--- NOTE | 2018-10-10 08:28 | PRG ---
DATE OF SERVICE: 10/10/2018 SUBJECTIVE: Ms. Alarcon is a very pleasant 67-year-old white female with a right distal femur intra-articular fracture. She had open reduction and internal fixation done, but in fact, and unfortunately became infected with MRSA. She had to have her hardware removed and had debridement. She was placed in a knee immobilizer and vancomycin per Dr. Mckeon. She is on hemodialysis at [facility] on Thursday, Thursday, and Thursday. She is admitted here to increase her strength and stamina for physical therapy and occupational therapy. The patient states that she had a great day yesterday and slept well last night. She did have some pain yesterday, but the pain medicine made that better. She thinks the pain is because there was a yesterday. She has no complaints today. PHYSICAL EXAMINATION: VITAL SIGNS: Today reveal blood pressure is 176/78 which is a little high for her, pulse is 76, respirations 19, and O2 saturation 94% to 95% on room air, and T-max 98.6. GENERAL: This is a well-developed, well-nourished, 67-year-old white female, in no apparent distress. HEENT: Normocephalic and nontraumatic cranium. Pupils are equal, round, and reactive. Extraocular movements are intact. Nose and throat are moist. NECK: Supple without masses, nodes, or bruits. CHEST: Clear to auscultation. No rales, rhonchi, wheezes, or cough is noted. HEART: Regular rate and rhythm without murmurs, gallops, or rubs. ABDOMEN: Soft and nontender. Normal bowel sounds are noted. No rebound or guarding is noted. : Deferred. EXTREMITIES: Right knee does not have a knee immobilizer on and the patient states that she is up and standing and walking with therapy. There is no clubbing, cyanosis, or edema noted. ASSESSMENT: 1. Distal right femur fracture. 2. Infected hardware with methicillin-resistant Staphylococcus aureus, which has been removed. 3. On vancomycin after hemodialysis on Thursday, Thursday, and Thursday. 4. Coronary artery disease. 5. End-stage renal hemodialysis on Thursday, , Thursday at [facility]. 6. Hyperlipidemia. 7. Hyponatremia. 8. Anemia of chronic disease. 9. History of breast cancer. 10. Anxiety depressive disorder. 11. Generalized weakness. PLAN: 1. Continue present medications. 2. Continue vancomycin post hemodialysis. 3. Continue hemodialysis per her routine schedule at [facility]. 4. DVT prophylaxis. 5. Decubitus precautions. 6. Continue supportive care. 7. Continue physical therapy and occupational therapy. Job ID: [id number]
[2018-10-10] MEDS: Carvedilol 6.25 MG TAB PO SCH (08:30)
[2018-10-10] MEDS: Heparin 5,000 UNITS/ML VIAL SC SCH ×2 (08:30→20:50)
[2018-10-10] MEDS: Simethicone Chewable 80 MG TAB PO PRN ×2 (09:36→20:51)
[2018-10-10] MEDS: Ondansetron ODT 4 MG TAB PO PRN (12:55)
[2018-10-10] MEDS: HYDROcodone/Acetaminophen 10/325 mg Tablet PO PRN ×2 (13:37→20:52)
[2018-10-10] MEDS: Pravastatin Sodium 20 MG TAB PO SCH (20:50)
[2018-10-10] MEDS: Temazepam 15 MG CAP PO PRN (20:50)
[2018-10-10] MEDS: clonazePAM 0.5 MG TAB PO PRN (20:50)
[2018-10-10] MEDS: Loratadine 10 MG TAB PO SCH (20:51)
[2018-10-10] MEDS: Famotidine 20 MG TAB PO SCH (20:51)
[2018-10-11] MEDS: Cinacalcet HCl 30 MG TAB PO SCH (06:42)
[2018-10-11] MEDS: HYDROcodone/Acetaminophen 10/325 mg Tablet PO PRN ×3 (07:35→20:59)
[2018-10-11] MEDS: Cyclobenzaprine 10 MG TAB PO PRN ×2 (07:38→15:31)
[2018-10-11] MEDS: Calcium Acetate 667 MG CAP PO SCH ×2 (15:32→19:15)
[2018-10-11] MEDS: buPROPion HCl 100 MG TAB PO SCH ×2 (15:32→20:58)
[2018-10-11] MEDS: Aspirin 81 mg Enteric Coated Tablet PO SCH (15:32)
[2018-10-11] MEDS: Carvedilol 6.25 MG TAB PO SCH ×2 (15:32→20:58)
[2018-10-11] MEDS: Escitalopram Oxalate 20 mg Tablet PO SCH (15:33)
[2018-10-11] MEDS: Folic Acid/Vit B Comp W-C PO SCH (15:33)
[2018-10-11] MEDS: Heparin 5,000 UNITS/ML VIAL SC SCH ×2 (15:33→20:57)
[2018-10-11] MEDS: Docusate 100 MG CAP PO SCH ×2 (15:33→20:59)
[2018-10-11] MEDS: Fluticasone Propionate Nasal Spray 16 gm Bottle NASAL SCH (15:33)
[2018-10-11] MEDS: Naproxen 500 MG TAB PO SCH ×2 (15:34→20:58)
[2018-10-11] MEDS: Polyethylene Glycol 3350 17 GM Packet PO SCH (15:34)
[2018-10-11] MEDS: Famotidine 20 MG TAB PO SCH (20:58)
[2018-10-11] MEDS: Temazepam 15 MG CAP PO PRN (20:58)
[2018-10-11] MEDS: Loratadine 10 MG TAB PO SCH (20:58)
[2018-10-11] MEDS: Pravastatin Sodium 20 MG TAB PO SCH (20:58)
[2018-10-11] MEDS: clonazePAM 0.5 MG TAB PO PRN (20:58)
[2018-10-12] MEDS: Carvedilol 6.25 MG TAB PO SCH (09:07)
[2018-10-12] MEDS: buPROPion HCl 100 MG TAB PO SCH ×2 (09:07→20:48)
[2018-10-12] MEDS: Calcium Acetate 667 MG CAP PO SCH ×3 (09:07→17:35)
[2018-10-12] MEDS: Docusate 100 MG CAP PO SCH ×2 (09:07→20:48)
[2018-10-12] MEDS: Folic Acid/Vit B Comp W-C PO SCH (09:07)
[2018-10-12] MEDS: Escitalopram Oxalate 20 mg Tablet PO SCH (09:08)
[2018-10-12] MEDS: Acetaminophen 500 MG TAB PO PRN (09:08)
[2018-10-12] MEDS: Fluticasone Propionate Nasal Spray 16 gm Bottle NASAL SCH (09:08)
[2018-10-12] MEDS: Polyethylene Glycol 3350 17 GM Packet PO SCH (09:08)
[2018-10-12] MEDS: Heparin 5,000 UNITS/ML VIAL SC SCH (09:08)
[2018-10-12] MEDS: Ondansetron ODT 4 MG TAB PO PRN ×2 (09:08→22:02)
[2018-10-12] MEDS: Naproxen 500 MG TAB PO SCH ×2 (09:08→20:50)
[2018-10-12] MEDS: Aspirin 81 mg Enteric Coated Tablet PO SCH (09:20)
[2018-10-12] MEDS: traMADol HCl 50 MG TAB PO PRN (14:09)
--- NOTE | 2018-10-12 14:16 | PRG ---
DATE OF SERVICE: 10/12/2018 SUBJECTIVE: Ms. Alarcon is doing well. Denies any complaints. Resting comfortably. Tolerating her medications and her dialysis. OBJECTIVE: VITAL SIGNS: She is afebrile. Heart rate 70, respirations 20, oxygen saturation 96% on room air, and blood pressure 131/72. CARDIOVASCULAR: S1 and S2 plus. RESPIRATORY: Normal vesicular breath sounds. ABDOMEN: Soft and nontender. Bowel sounds in all quadrants. EXTREMITIES: Without cyanosis or clubbing. Peripheral pulses are palpable. Wound VAC in place. CENTRAL NERVOUS SYSTEM: AAO x3. Cranial nerves 2 through 12 intact. Improving deconditioning. IMPRESSION: 1. Infection of the hardware used for right distal femur fracture, requiring removal of hardware and long-term antibiotics. 2. End-stage renal disease, on hemodialysis. 3. Coronary artery disease. 4. Hypertension. 5. Dyslipidemia. 6. Depression and anxiety. PLAN: 1. Continue heart healthy renal diet. 2. Continue current medications. 3. Vancomycin with hemodialysis. 4. Wound VAC care. 5. Therapy as tolerated. 6. DVT and stress ulcer prophylaxis. 7. Decubitus precautions. 8. Stress ulcer prophylaxis. 9. No family at bedside. Job ID: [id number]
[2018-10-12] MEDS: Pravastatin Sodium 20 MG TAB PO SCH (20:48)
[2018-10-12] MEDS: clonazePAM 0.5 MG TAB PO PRN (20:48)
[2018-10-12] MEDS: Famotidine 20 MG TAB PO SCH (20:48)
[2018-10-12] MEDS: Loratadine 10 MG TAB PO SCH (20:49)
[2018-10-12] MEDS: Temazepam 15 MG CAP PO PRN (20:49)
[2018-10-12] MEDS: HYDROcodone/Acetaminophen 10/325 mg Tablet PO PRN (20:49)
[2018-10-13] MEDS: Cinacalcet HCl 30 MG TAB PO SCH (06:02)
[2018-10-13] MEDS: Calcium Acetate 667 MG CAP PO SCH ×3 (07:53→17:55)
[2018-10-13] MEDS: HYDROcodone/Acetaminophen 10/325 mg Tablet PO PRN ×2 (07:54→17:56)
[2018-10-13] MEDS: Aspirin 81 mg Enteric Coated Tablet PO SCH (09:35)
[2018-10-13] MEDS: buPROPion HCl 100 MG TAB PO SCH ×2 (09:36→20:34)
[2018-10-13] MEDS: Carvedilol 6.25 MG TAB PO SCH ×2 (09:36→20:33)
[2018-10-13] MEDS: Docusate 100 MG CAP PO SCH ×2 (09:36→20:36)
[2018-10-13] MEDS: Naproxen 500 MG TAB PO SCH ×2 (09:37→20:35)
[2018-10-13] MEDS: Folic Acid/Vit B Comp W-C PO SCH (09:37)
[2018-10-13] MEDS: Escitalopram Oxalate 20 mg Tablet PO SCH (09:37)
[2018-10-13] MEDS: Polyethylene Glycol 3350 17 GM Packet PO SCH (09:37)
[2018-10-13] MEDS: Fluticasone Propionate Nasal Spray 16 gm Bottle NASAL SCH (09:37)
[2018-10-13] MEDS: traMADol HCl 50 MG TAB PO PRN ×2 (14:31→20:35)
[2018-10-13] MEDS: Famotidine 20 MG TAB PO SCH (20:34)
[2018-10-13] MEDS: Pravastatin Sodium 20 MG TAB PO SCH (20:34)
[2018-10-13] MEDS: Acetaminophen 500 MG TAB PO PRN (20:34)
[2018-10-13] MEDS: Loratadine 10 MG TAB PO SCH (20:35)
[2018-10-13] MEDS: Cyclobenzaprine 10 MG TAB PO PRN (20:36)
[2018-10-13] MEDS: Ondansetron ODT 4 MG TAB PO PRN (21:52)
[2018-10-13] MEDS: Temazepam 15 MG CAP PO PRN (21:52)
[2018-10-14] MEDS: Fluticasone Propionate Nasal Spray 16 gm Bottle NASAL SCH (08:03)
[2018-10-14] MEDS: Calcium Acetate 667 MG CAP PO SCH ×3 (08:03→17:19)
[2018-10-14] MEDS: buPROPion HCl 100 MG TAB PO SCH ×2 (08:04→20:32)
[2018-10-14] MEDS: Docusate 100 MG CAP PO SCH ×2 (08:04→20:31)
[2018-10-14] MEDS: Carvedilol 6.25 MG TAB PO SCH (08:04)
[2018-10-14] MEDS: Naproxen 500 MG TAB PO SCH ×2 (08:04→20:33)
[2018-10-14] MEDS: Cyclobenzaprine 10 MG TAB PO PRN (08:04)
[2018-10-14] MEDS: Folic Acid/Vit B Comp W-C PO SCH (08:04)
[2018-10-14] MEDS: Aspirin 81 mg Enteric Coated Tablet PO SCH (08:05)
[2018-10-14] MEDS: Polyethylene Glycol 3350 17 GM Packet PO SCH (08:05)
[2018-10-14] MEDS: HYDROcodone/Acetaminophen 10/325 mg Tablet PO PRN ×2 (08:05→20:33)
[2018-10-14] MEDS: Escitalopram Oxalate 20 mg Tablet PO SCH (08:05)
[2018-10-14] MEDS: Heparin 5,000 UNITS/ML VIAL SC SCH ×2 (08:08→20:31)
[2018-10-14] MEDS: Ondansetron ODT 4 MG TAB PO PRN ×2 (10:48→18:15)
--- NOTE | 2018-10-14 13:55 | PRG ---
DATE OF SERVICE: 10/14/2018 SUBJECTIVE: Ms. Alarcon is doing well. Denies any complaints. She saw her orthopedic surgeon and her wound VAC has been removed. Her weightbearing status has not been increased. She apparently is continuing her vancomycin with hemodialysis and apparently goes on till about the first weekend in October. The patient denies any concerns or questions. She is tolerating her medications. No family at bedside. Discussed with nursing. OBJECTIVE: VITAL SIGNS: She is afebrile. Heart rate 74, respirations 18, oxygen saturation 94% on room air, blood pressure 155/68. CARDIOVASCULAR: S1, S2 plus. RESPIRATORY: Normal vesicular breath sounds. ABDOMEN: Soft, nontender. Bowel sounds heard in all quadrants. EXTREMITIES: Without cyanosis or clubbing. Peripheral pulses are palpable. CENTRAL NERVOUS SYSTEM: AAO x3. Cranial nerves 2 through 12 intact. Generalized weakness. LABORATORY VALUES: She apparently had labs done yesterday in dialysis and she will get a copy on Thursday and she will bring it to me. IMPRESSION: 1. Infected hardware requiring removal of hardware from her right distal femur fracture, on long-term vancomycin with dialysis. 2. End-stage renal disease, on hemodialysis. 3. Coronary artery disease. 4. Hypertension. 5. Dyslipidemia. 6. Depression and anxiety. 7. Improving deconditioning. PLAN: 1. Continue heart healthy, renal diet. 2. Continue current medications. 3. Vancomycin with hemodialysis. 4. Physical therapy. 5. Orthopedic precaution. 6. Routine laboratory values with hemodialysis. 7. DVT and stress ulcer prophylaxis. 8. Decubitus precautions. 9. Discussed with the patient in detail. All the questions answered. Job ID: [id number]
[2018-10-14] MEDS: traMADol HCl 50 MG TAB PO PRN (18:21)
[2018-10-14] MEDS: Pravastatin Sodium 20 MG TAB PO SCH (20:31)
[2018-10-14] MEDS: Temazepam 15 MG CAP PO PRN (20:33)
[2018-10-14] MEDS: Famotidine 20 MG TAB PO SCH (20:33)
[2018-10-14] MEDS: Loratadine 10 MG TAB PO SCH (20:33)
[2018-10-15] MEDS: HYDROcodone/Acetaminophen 10/325 mg Tablet PO PRN (05:53)
[2018-10-15] MEDS: Cyclobenzaprine 10 MG TAB PO PRN (05:53)
[2018-10-15] MEDS: Cinacalcet HCl 30 MG TAB PO SCH (05:56)
[2018-10-15] MEDS: Calcium Acetate 667 MG CAP PO SCH ×3 (07:25→17:50)
[2018-10-15] MEDS: traMADol HCl 50 MG TAB PO PRN ×2 (07:26→15:07)
[2018-10-15] MEDS: buPROPion HCl 100 MG TAB PO SCH ×2 (09:15→20:51)
[2018-10-15] MEDS: Carvedilol 6.25 MG TAB PO SCH ×2 (09:15→20:52)
[2018-10-15] MEDS: Docusate 100 MG CAP PO SCH ×2 (09:15→20:52)
[2018-10-15] MEDS: Aspirin 81 mg Enteric Coated Tablet PO SCH (09:15)
[2018-10-15] MEDS: Escitalopram Oxalate 20 mg Tablet PO SCH (09:16)
[2018-10-15] MEDS: Folic Acid/Vit B Comp W-C PO SCH (09:16)
[2018-10-15] MEDS: Polyethylene Glycol 3350 17 GM Packet PO SCH (09:16)
[2018-10-15] MEDS: Fluticasone Propionate Nasal Spray 16 gm Bottle NASAL SCH (09:16)
[2018-10-15] MEDS: Naproxen 500 MG TAB PO SCH ×2 (09:16→20:52)
--- NOTE | 2018-10-15 12:45 | PRG ---
DATE OF SERVICE: 10/15/2018 SUBJECTIVE: The patient has had dialysis today, but apparently been doing well. For the wound care, had labs done there and is having no complaints. OBJECTIVE: VITAL SIGNS: Show blood pressure is 155/68, temperature is 97, pulse 79, respirations 20, O2 sats 95% on room air. LUNGS: Clear. ABDOMEN: Soft, nontender. CARDIAC: Showed regular rhythm. ASSESSMENT: 1. Resolving infected hardware of right distal femur, status post removal, on vancomycin at dialysis. 2. End-stage renal disease, on hemodialysis, stable. 3. Coronary artery disease, asymptomatic. 4. Improving deconditioning. PLAN: 1. Continue PT/OT. 2. Continue dialysis three times weekly. 3. Continue vancomycin at dialysis. 4. Obtain lab report from dialysis. Job ID: [id number]
[2018-10-15] MEDS: Famotidine 20 MG TAB PO SCH (20:49)
[2018-10-15] MEDS: Pravastatin Sodium 20 MG TAB PO SCH (20:50)
[2018-10-15] MEDS: Temazepam 15 MG CAP PO PRN (20:51)
[2018-10-15] MEDS: Loratadine 10 MG TAB PO SCH (20:52)
[2018-10-16] MEDS: traMADol HCl 50 MG TAB PO PRN ×2 (00:53→08:30)
[2018-10-16] MEDS: Cyclobenzaprine 10 MG TAB PO PRN ×3 (00:53→20:09)
--- NOTE | 2018-10-16 07:49 | PRG ---
DATE OF SERVICE: 10/16/2018 SUBJECTIVE: The patient lying in bed, awake and alert, in some distress as her pain medications and sleeping pills have fallen off the orders last night. She states that she did rest some, but is requesting medication today for pain. States mainly her pain is in her right knee where her distal femur fracture hardware has been removed because of infection. She is denying any shortness of breath or chest pain and is stable on her dialysis. OBJECTIVE: VITAL SIGNS: Blood pressure 155/68, temperature is 97.2, pulse 86, respirations 20, O2 saturations 97% on room air. LUNGS: Clear. CARDIAC: Shows regular rhythm. ABDOMEN: Soft and nontender. SKIN/EXTREMITIES: Show right knee has bandage, minimal swelling and tenderness. ASSESSMENT: 1. Stable end-stage renal disease, on hemodialysis. 2. Resolving infected right femur hardware, status post removal, on IV vancomycin. 3. Stable coronary artery disease, asymptomatic. 4. Hypertension, controlled to goal. PLAN: 1. Restart hydrocodone 10/325 one every 4 hours as needed for pain. 2. Restart temazepam 15 mg nightly as needed for insomnia. 3. Continue hemodialysis 3 times weekly and physical therapy as needed in between. 4. Continue vancomycin at dialysis and laboratory at dialysis. Job ID: [id number]
[2018-10-16] MEDS: Calcium Acetate 667 MG CAP PO SCH ×3 (08:30→17:03)
[2018-10-16] MEDS: Folic Acid/Vit B Comp W-C PO SCH (08:30)
[2018-10-16] MEDS: Polyethylene Glycol 3350 17 GM Packet PO SCH (08:30)
[2018-10-16] MEDS: Escitalopram Oxalate 20 mg Tablet PO SCH (08:30)
[2018-10-16] MEDS: Docusate 100 MG CAP PO SCH ×2 (08:30→20:07)
[2018-10-16] MEDS: Carvedilol 6.25 MG TAB PO SCH ×2 (08:30→20:06)
[2018-10-16] MEDS: Aspirin 81 mg Enteric Coated Tablet PO SCH (08:30)
[2018-10-16] MEDS: buPROPion HCl 100 MG TAB PO SCH ×2 (08:30→20:08)
[2018-10-16] MEDS: Heparin 5,000 UNITS/ML VIAL SC SCH ×2 (08:30→20:06)
[2018-10-16] MEDS: Naproxen 500 MG TAB PO SCH ×2 (08:30→20:07)
[2018-10-16] MEDS: Fluticasone Propionate Nasal Spray 16 gm Bottle NASAL SCH (08:30)
[2018-10-16] MEDS: Ondansetron ODT 4 MG TAB PO PRN (13:11)
[2018-10-16] MEDS: Famotidine 20 MG TAB PO SCH (20:07)
[2018-10-16] MEDS: Pravastatin Sodium 20 MG TAB PO SCH (20:08)
[2018-10-16] MEDS: HYDROcodone/Acetaminophen 10/325 mg Tablet PO PRN (20:09)
[2018-10-16] MEDS: Loratadine 10 MG TAB PO SCH (20:10)
[2018-10-16] MEDS: Temazepam 15 MG CAP PO PRN (20:10)
[2018-10-17] MEDS: Fluticasone Propionate Nasal Spray 16 gm Bottle NASAL SCH (08:30)
[2018-10-17] MEDS: Polyethylene Glycol 3350 17 GM Packet PO SCH (08:31)
[2018-10-17] MEDS: Calcium Acetate 667 MG CAP PO SCH ×3 (08:31→17:13)
[2018-10-17] MEDS: Heparin 5,000 UNITS/ML VIAL SC SCH ×2 (08:32→21:11)
[2018-10-17] MEDS: Aspirin 81 mg Enteric Coated Tablet PO SCH (08:34)
[2018-10-17] MEDS: Docusate 100 MG CAP PO SCH ×2 (08:34→21:11)
[2018-10-17] MEDS: Carvedilol 6.25 MG TAB PO SCH (08:36)
[2018-10-17] MEDS: Escitalopram Oxalate 20 mg Tablet PO SCH (08:38)
[2018-10-17] MEDS: Naproxen 500 MG TAB PO SCH ×2 (08:38→21:11)
[2018-10-17] MEDS: Folic Acid/Vit B Comp W-C PO SCH (08:38)
[2018-10-17] MEDS: buPROPion HCl 100 MG TAB PO SCH ×2 (08:39→21:11)
[2018-10-17] MEDS: HYDROcodone/Acetaminophen 10/325 mg Tablet PO PRN ×2 (13:52→21:09)
--- NOTE | 2018-10-17 21:08 | PRG ---
DATE OF SERVICE: 10/17/2018 SUBJECTIVE: The patient feels well, but is requesting that her tramadol be reordered as she is still requiring this when she gets up and moves around. She is having no fever or chills. She is receiving her vancomycin at dialysis and her laboratories at dialysis. OBJECTIVE: VITAL SIGNS: Show blood pressure 131/58, temperature is 96, pulse 75, respirations 18, and O2 sats 93% on room air. ASSESSMENT: 1. Resolving left femur fracture, status post and initiation and continuation of IV vancomycin at dialysis. 2. Stable end-stage renal disease, on hemodialysis 3 times weekly. 3. Stable coronary artery disease, asymptomatic. 4. Hypertension, controlled to goal. PLAN: Restart tramadol every 4 hours as needed for 50 mg every 4 as needed for pain. Continue to temazepam at night for insomnia. Continue hemodialysis 3 times weekly. Continue vancomycin at dialysis and laboratory at dialysis. Job ID: [id number]
[2018-10-17] MEDS: Ondansetron ODT 4 MG TAB PO PRN (21:10)
[2018-10-17] MEDS: Temazepam 15 MG CAP PO PRN (21:10)
[2018-10-17] MEDS: Loratadine 10 MG TAB PO SCH (21:10)
[2018-10-17] MEDS: Pravastatin Sodium 20 MG TAB PO SCH (21:11)
[2018-10-17] MEDS: Cyclobenzaprine 10 MG TAB PO PRN (21:11)
[2018-10-17] MEDS: Famotidine 20 MG TAB PO SCH (21:11)
[2018-10-18] MEDS: Cinacalcet HCl 30 MG TAB PO SCH (06:24)
[2018-10-18] MEDS: HYDROcodone/Acetaminophen 10/325 mg Tablet PO PRN ×3 (07:44→21:03)
[2018-10-18] MEDS: Calcium Acetate 667 MG CAP PO SCH ×3 (07:45→17:54)
[2018-10-18] MEDS: Cyclobenzaprine 10 MG TAB PO PRN ×2 (07:46→15:40)
[2018-10-18] MEDS: Docusate 100 MG CAP PO SCH ×2 (09:00→21:03)
[2018-10-18] MEDS: Carvedilol 6.25 MG TAB PO SCH ×2 (09:00→21:05)
[2018-10-18] MEDS: Folic Acid/Vit B Comp W-C PO SCH (09:00)
[2018-10-18] MEDS: Aspirin 81 mg Enteric Coated Tablet PO SCH (09:00)
[2018-10-18] MEDS: Fluticasone Propionate Nasal Spray 16 gm Bottle NASAL SCH (09:00)
[2018-10-18] MEDS: buPROPion HCl 100 MG TAB PO SCH ×2 (09:00→21:03)
[2018-10-18] MEDS: Escitalopram Oxalate 20 mg Tablet PO SCH (09:00)
[2018-10-18] MEDS: Naproxen 500 MG TAB PO SCH ×2 (09:00→21:03)
[2018-10-18] MEDS: Polyethylene Glycol 3350 17 GM Packet PO SCH (09:00)
[2018-10-18] MEDS: traMADol HCl 50 MG TAB PO PRN (17:58)
[2018-10-18] MEDS: Famotidine 20 MG TAB PO SCH (21:03)
[2018-10-18] MEDS: Pravastatin Sodium 20 MG TAB PO SCH (21:03)
[2018-10-18] MEDS: Loratadine 10 MG TAB PO SCH (21:03)
[2018-10-19] MEDS: Docusate 100 MG CAP PO SCH ×2 (08:09→20:13)
[2018-10-19] MEDS: buPROPion HCl 100 MG TAB PO SCH ×2 (08:09→21:15)
[2018-10-19] MEDS: Cyclobenzaprine 10 MG TAB PO PRN ×2 (08:10→20:14)
[2018-10-19] MEDS: Folic Acid/Vit B Comp W-C PO SCH (08:10)
[2018-10-19] MEDS: Carvedilol 6.25 MG TAB PO SCH (08:10)
[2018-10-19] MEDS: Aspirin 81 mg Enteric Coated Tablet PO SCH (08:10)
[2018-10-19] MEDS: Naproxen 500 MG TAB PO SCH ×2 (08:10→20:14)
[2018-10-19] MEDS: Calcium Acetate 667 MG CAP PO SCH ×3 (08:10→16:51)
[2018-10-19] MEDS: Escitalopram Oxalate 20 mg Tablet PO SCH (08:10)
[2018-10-19] MEDS: Fluticasone Propionate Nasal Spray 16 gm Bottle NASAL SCH (08:11)
[2018-10-19] MEDS: HYDROcodone/Acetaminophen 10/325 mg Tablet PO PRN ×2 (08:12→20:13)
[2018-10-19] MEDS: Heparin 5,000 UNITS/ML VIAL SC SCH ×2 (08:13→20:17)
[2018-10-19] MEDS: Polyethylene Glycol 3350 17 GM Packet PO SCH (08:13)
--- NOTE | 2018-10-19 13:34 | PRG ---
DATE OF SERVICE: 10/19/2018 SUBJECTIVE: Ms. Alarcon is doing well. Denies any complaints. Resting comfortably. She apparently ambulated her maximum distance today. Pain is controlled. Tolerating her dialysis. Last day for vancomycin is November 10 per the patient. OBJECTIVE: VITAL SIGNS: She is afebrile. Heart rate 70, respirations 20, oxygen saturation 94% on room air, blood pressure 154/67. CARDIOVASCULAR SYSTEM: S1 and S2 plus. RESPIRATORY SYSTEM: Normal vesicular breath sounds. ABDOMEN: Soft, nontender. Bowel sounds heard in all quadrants. EXTREMITIES: Without cyanosis or clubbing. IMPRESSION: 1. Resolving hardware infection of her right distal femur fracture, requiring removal of hardware. 2. Wound VAC has been removed. 3. End-stage renal disease, on hemodialysis. 4. Coronary artery disease. 5. Dyslipidemia. 6. Depression and anxiety. PLAN: 1. Continue current medications. 2. Heart healthy, renal diet. 3. Vancomycin with hemodialysis. 4. Physical therapy. 5. Orthopedic precautions. 6. DVT and stress ulcer prophylaxis. 7. Decubitus precautions. 8. Labs with hemodialysis. Job ID: [id number]
[2018-10-19] MEDS: traMADol HCl 50 MG TAB PO PRN (14:25)
[2018-10-19] MEDS: Simethicone Chewable 80 MG TAB PO PRN (17:59)
[2018-10-19] MEDS: Pravastatin Sodium 20 MG TAB PO SCH (20:12)
[2018-10-19] MEDS: Temazepam 15 MG CAP PO PRN (20:12)
[2018-10-19] MEDS: Ondansetron ODT 4 MG TAB PO PRN (20:13)
[2018-10-19] MEDS: Loratadine 10 MG TAB PO SCH (20:13)
[2018-10-19] MEDS: Famotidine 20 MG TAB PO SCH (20:14)
[2018-10-20] MEDS: traMADol HCl 50 MG TAB PO PRN (05:35)
[2018-10-20] MEDS: Cinacalcet HCl 30 MG TAB PO SCH (05:35)
[2018-10-20] MEDS: Calcium Acetate 667 MG CAP PO SCH ×3 (07:43→17:23)
[2018-10-20] MEDS: HYDROcodone/Acetaminophen 10/325 mg Tablet PO PRN ×3 (07:44→19:45)
[2018-10-20] MEDS: Cyclobenzaprine 10 MG TAB PO PRN ×2 (07:44→19:47)
[2018-10-20] MEDS: Aspirin 81 mg Enteric Coated Tablet PO SCH (09:21)
[2018-10-20] MEDS: buPROPion HCl 100 MG TAB PO SCH ×2 (09:21→19:47)
[2018-10-20] MEDS: Carvedilol 6.25 MG TAB PO SCH ×2 (09:21→19:48)
[2018-10-20] MEDS: Fluticasone Propionate Nasal Spray 16 gm Bottle NASAL SCH (09:22)
[2018-10-20] MEDS: Docusate 100 MG CAP PO SCH ×2 (09:22→19:48)
[2018-10-20] MEDS: Folic Acid/Vit B Comp W-C PO SCH (09:22)
[2018-10-20] MEDS: Polyethylene Glycol 3350 17 GM Packet PO SCH (09:22)
[2018-10-20] MEDS: Naproxen 500 MG TAB PO SCH ×2 (09:22→19:47)
[2018-10-20] MEDS: Escitalopram Oxalate 20 mg Tablet PO SCH (09:22)
[2018-10-20] MEDS: Temazepam 15 MG CAP PO PRN (19:46)
[2018-10-20] MEDS: Famotidine 20 MG TAB PO SCH (19:47)
[2018-10-20] MEDS: Pravastatin Sodium 20 MG TAB PO SCH (19:47)
[2018-10-20] MEDS: Loratadine 10 MG TAB PO SCH (19:47)
[2018-10-20] MEDS: Ondansetron ODT 4 MG TAB PO PRN (19:48)
[2018-10-21] MEDS: Calcium Acetate 667 MG CAP PO SCH ×3 (08:20→17:10)
[2018-10-21] MEDS: HYDROcodone/Acetaminophen 10/325 mg Tablet PO PRN ×2 (08:20→14:15)
[2018-10-21] MEDS: Aspirin 81 mg Enteric Coated Tablet PO SCH (08:21)
[2018-10-21] MEDS: Cyclobenzaprine 10 MG TAB PO PRN ×2 (08:21→21:34)
[2018-10-21] MEDS: Naproxen 500 MG TAB PO SCH ×2 (08:21→21:34)
[2018-10-21] MEDS: Docusate 100 MG CAP PO SCH ×2 (08:21→21:34)
[2018-10-21] MEDS: Carvedilol 6.25 MG TAB PO SCH (08:21)
[2018-10-21] MEDS: buPROPion HCl 100 MG TAB PO SCH ×2 (08:21→21:34)
[2018-10-21] MEDS: Folic Acid/Vit B Comp W-C PO SCH (08:21)
[2018-10-21] MEDS: Polyethylene Glycol 3350 17 GM Packet PO SCH ×2 (08:22→17:11)
[2018-10-21] MEDS: Heparin 5,000 UNITS/ML VIAL SC SCH ×2 (08:22→21:33)
[2018-10-21] MEDS: Escitalopram Oxalate 20 mg Tablet PO SCH (08:22)
[2018-10-21] MEDS: Fluticasone Propionate Nasal Spray 16 gm Bottle NASAL SCH (08:22)
--- NOTE | 2018-10-21 10:09 | PRG ---
DATE OF SERVICE: 10/21/2018 SUBJECTIVE: Ms. Alarcon is doing well except she would like to take her laxative in the afternoon after dialysis. She brought in laboratory values from dialysis center. Her lab looks good including her white blood count and hemoglobin and hematocrit. Her last day for antibiotic is the . She denies any concerns or questions. OBJECTIVE: VITAL SIGNS: She is afebrile, heart rate 76, respirations 20, oxygen saturation 93% on room air, blood pressure 141/63. CARDIOVASCULAR SYSTEM: S1 and S2 plus. RESPIRATORY SYSTEM: Normal vesicular breath sounds. ABDOMEN: Soft and nontender. Bowel sounds in all quadrants. EXTREMITIES: Without cyanosis or clubbing. CENTRAL NERVOUS SYSTEM: Awake and responsive. Cranial nerves 2 through 12 grossly intact. Improving deconditioning. IMPRESSION: 1. Hardware infection, requiring removal of hardware and initial placement of wound VAC, which has since been discontinued, requiring long-term antibiotics. 2. End-stage renal disease, on hemodialysis. 3. Chronic constipation, requiring laxatives. 4. Coronary artery disease. 5. Hypertension. 6. Dyslipidemia. 7. Depression and anxiety. PLAN: 1. Continue current medications except we change the timing of laxative to afternoon. 2. Continue heart healthy, renal diet. 3. Vancomycin with hemodialysis. 4. DVT and stress ulcer prophylaxis. 5. Decubitus precautions. 6. Orthopedic precautions. 7. Physical therapy. 8. Laboratory values with hemodialysis. 9. Discussed with the patient and nursing in detail. All questions answered. Job ID: [id number]
[2018-10-21] MEDS: traMADol HCl 50 MG TAB PO PRN ×2 (11:23→21:34)
[2018-10-21] MEDS: clonazePAM 0.5 MG TAB PO PRN (21:34)
[2018-10-21] MEDS: Temazepam 15 MG CAP PO PRN (21:34)
[2018-10-21] MEDS: Loratadine 10 MG TAB PO SCH (21:34)
[2018-10-21] MEDS: Famotidine 20 MG TAB PO SCH (21:34)
[2018-10-21] MEDS: Pravastatin Sodium 20 MG TAB PO SCH (21:35)
[2018-10-21] MEDS: Simethicone Chewable 80 MG TAB PO PRN (21:37)
[2018-10-22] MEDS: Cinacalcet HCl 30 MG TAB PO SCH (06:11)
[2018-10-22] MEDS: Calcium Acetate 667 MG CAP PO SCH ×3 (07:45→17:33)
[2018-10-22] MEDS: HYDROcodone/Acetaminophen 10/325 mg Tablet PO PRN ×2 (07:45→14:51)
[2018-10-22] MEDS: Cyclobenzaprine 10 MG TAB PO PRN ×2 (07:45→21:10)
[2018-10-22] MEDS: Aspirin 81 mg Enteric Coated Tablet PO SCH (09:16)
[2018-10-22] MEDS: buPROPion HCl 100 MG TAB PO SCH ×2 (09:17→21:10)
[2018-10-22] MEDS: Carvedilol 6.25 MG TAB PO SCH ×2 (09:17→21:09)
[2018-10-22] MEDS: Naproxen 500 MG TAB PO SCH ×2 (09:18→21:09)
[2018-10-22] MEDS: Docusate 100 MG CAP PO SCH ×2 (09:18→21:10)
[2018-10-22] MEDS: Folic Acid/Vit B Comp W-C PO SCH (09:18)
[2018-10-22] MEDS: Escitalopram Oxalate 20 mg Tablet PO SCH (09:18)
[2018-10-22] MEDS: Fluticasone Propionate Nasal Spray 16 gm Bottle NASAL SCH (09:18)
[2018-10-22] MEDS: Ondansetron ODT 4 MG TAB PO PRN (14:50)
[2018-10-22] MEDS: Polyethylene Glycol 3350 17 GM Packet PO SCH ×2 (14:51→17:33)
[2018-10-22] MEDS: traMADol HCl 50 MG TAB PO PRN (18:12)
[2018-10-22] MEDS: Simethicone Chewable 80 MG TAB PO PRN (18:12)
[2018-10-22] MEDS: clonazePAM 0.5 MG TAB PO PRN (21:09)
[2018-10-22] MEDS: Famotidine 20 MG TAB PO SCH (21:10)
[2018-10-22] MEDS: Temazepam 15 MG CAP PO PRN (21:10)
[2018-10-22] MEDS: Loratadine 10 MG TAB PO SCH (21:10)
[2018-10-22] MEDS: Pravastatin Sodium 20 MG TAB PO SCH (21:11)
[2018-10-23] MEDS: Calcium Acetate 667 MG CAP PO SCH ×3 (08:27→16:34)
[2018-10-23] MEDS: HYDROcodone/Acetaminophen 10/325 mg Tablet PO PRN ×2 (08:28→21:30)
[2018-10-23] MEDS: Carvedilol 6.25 MG TAB PO SCH ×2 (08:33→21:29)
[2018-10-23] MEDS: Cyclobenzaprine 10 MG TAB PO PRN ×2 (08:34→21:29)
[2018-10-23] MEDS: buPROPion HCl 100 MG TAB PO SCH ×2 (08:34→21:30)
[2018-10-23] MEDS: Docusate 100 MG CAP PO SCH ×2 (08:34→21:30)
[2018-10-23] MEDS: Aspirin 81 mg Enteric Coated Tablet PO SCH (08:34)
[2018-10-23] MEDS: Naproxen 500 MG TAB PO SCH ×2 (08:34→21:29)
[2018-10-23] MEDS: Escitalopram Oxalate 20 mg Tablet PO SCH (08:34)
[2018-10-23] MEDS: Fluticasone Propionate Nasal Spray 16 gm Bottle NASAL SCH (08:35)
[2018-10-23] MEDS: Folic Acid/Vit B Comp W-C PO SCH (08:36)
[2018-10-23] MEDS: Heparin 5,000 UNITS/ML VIAL SC SCH ×2 (08:38→21:30)
--- NOTE | 2018-10-23 09:13 | PRG ---
DATE OF SERVICE: 10/23/2018 SUBJECTIVE: The patient feels well except for pain in her right hamstring. Says her legs were stretched yesterday. She is having minimal pain in her knee and distal femur. She has been taken off her Sensipar by her inspector brake lining, Dr. Kiran, and this will be monitored at dialysis. OBJECTIVE: VITAL SIGNS: Shows temperature is 96.5, pulse 76, respirations 18, O2 sats 95% on room air, and blood pressure 152/67. EXTREMITIES: Right knee shows minimal swelling. No erythema or warmth. Some tenderness to palpation. Leg is in a 45-degree flexion, but when stretched or extended, no pain in the knee, but just tightness in the hamstrings. LUNGS: Clear. CARDIAC: Showed regular rhythm. ASSESSMENT: 1. Muscle tightness and spasms in need of therapy and we will discuss with nurse. 2. End-stage renal disease, on hemodialysis, being followed by Nephrology discontinued the Sensipar because of low PTH. 3. Resolving hardware infection on IV antibiotics until November 10 with . PLAN: 1. Continue IV vancomycin and dialysis. 2. Continue PT and OT right leg with nurse to facilitate extension. 3. Continue to monitor vital signs closely. 4. DVT and stress ulcer prophylaxis. Job ID: [id number]
[2018-10-23] MEDS: traMADol HCl 50 MG TAB PO PRN (12:11)
[2018-10-23] MEDS: Simethicone Chewable 80 MG TAB PO PRN (12:12)
[2018-10-23] MEDS: Ondansetron ODT 4 MG TAB PO PRN (15:39)
[2018-10-23] MEDS: Polyethylene Glycol 3350 17 GM Packet PO SCH (16:36)
[2018-10-23] MEDS: Temazepam 15 MG CAP PO PRN (21:29)
[2018-10-23] MEDS: Pravastatin Sodium 20 MG TAB PO SCH (21:29)
[2018-10-23] MEDS: clonazePAM 0.5 MG TAB PO PRN (21:29)
[2018-10-23] MEDS: Loratadine 10 MG TAB PO SCH (21:29)
[2018-10-23] MEDS: Famotidine 20 MG TAB PO SCH (21:29)
[2018-10-24] MEDS: buPROPion HCl 100 MG TAB PO SCH ×2 (08:21→21:28)
[2018-10-24] MEDS: Fluticasone Propionate Nasal Spray 16 gm Bottle NASAL SCH (08:21)
[2018-10-24] MEDS: Escitalopram Oxalate 20 mg Tablet PO SCH (08:21)
[2018-10-24] MEDS: Docusate 100 MG CAP PO SCH ×2 (08:21→21:28)
[2018-10-24] MEDS: Calcium Acetate 667 MG CAP PO SCH ×3 (08:21→16:23)
[2018-10-24] MEDS: Naproxen 500 MG TAB PO SCH ×2 (08:21→21:28)
[2018-10-24] MEDS: Aspirin 81 mg Enteric Coated Tablet PO SCH (08:21)
[2018-10-24] MEDS: Carvedilol 6.25 MG TAB PO SCH (08:22)
[2018-10-24] MEDS: traMADol HCl 50 MG TAB PO PRN ×2 (08:22→16:23)
[2018-10-24] MEDS: Cyclobenzaprine 10 MG TAB PO PRN ×2 (08:22→21:29)
[2018-10-24] MEDS: Folic Acid/Vit B Comp W-C PO SCH (08:23)
[2018-10-24] MEDS: Heparin 5,000 UNITS/ML VIAL SC SCH ×2 (08:35→21:28)
[2018-10-24] MEDS: Simethicone Chewable 80 MG TAB PO PRN (08:35)
[2018-10-24] MEDS ORDERED: Carvedilol 6.25 MG TAB PO SCH (08:45)
[2018-10-24] MEDS: Polyethylene Glycol 3350 17 GM Packet PO SCH (16:25)
[2018-10-24] MEDS: Pravastatin Sodium 20 MG TAB PO SCH (21:28)
[2018-10-24] MEDS: clonazePAM 0.5 MG TAB PO PRN (21:29)
[2018-10-24] MEDS: Famotidine 20 MG TAB PO SCH (21:29)
[2018-10-24] MEDS: HYDROcodone/Acetaminophen 10/325 mg Tablet PO PRN (21:29)
[2018-10-24] MEDS: Loratadine 10 MG TAB PO SCH (21:29)
[2018-10-24] MEDS: Temazepam 15 MG CAP PO PRN (21:29)
[2018-10-25] MEDS: traMADol HCl 50 MG TAB PO PRN ×2 (05:25→17:36)
--- NOTE | 2018-10-25 07:19 | PRG ---
DATE OF SERVICE: 10/24/2018 SUBJECTIVE: The patient feels well, lying in the bed, has been straightening her leg more with some tenderness upon doing this therapy, but none at rest. She is having no nausea or vomiting. She is having minimal pain in her knee at rest. OBJECTIVE: Shows VITAL SIGNS: Blood pressure 152/67, pulse is 74, O2 saturations 93% on room air, temperature 97.9. HEENT: Pupils are equal, round, and reactive to light and accommodation. Sclerae are anicteric. Conjunctivae are pale. Oral mucous membranes are well hydrated. EXTREMITIES: Right knee shows minimal tenderness to palpation, but at 60 degrees contracture. ASSESSMENT: 1. Resolving right distal femur hardware infection, status post removal and on IV antibiotics until November 10, with Pharmacy to titrate vancomycin, to be given at dialysis. 2. PT; flexion contractures of right leg secondary to decreased use. We will stress stretching exercise. 3. End-stage renal disease, on hemodialysis, being followed by Nephrology. PLAN: 1. Continue PT and OT. 2. Continue hemodialysis with vancomycin at dialysis. 3. Continue stretching exercise even not at PT and OT. 4. Continue DVT and stress ulcer prophylaxis. 5. Dr. Junior to return to night at 9 p.m. Job ID: [id number]
[2018-10-25] MEDS: Cyclobenzaprine 10 MG TAB PO PRN ×2 (07:37→21:05)
[2018-10-25] MEDS: HYDROcodone/Acetaminophen 10/325 mg Tablet PO PRN ×3 (07:37→21:04)
[2018-10-25] MEDS: Calcium Acetate 667 MG CAP PO SCH ×3 (08:31→17:03)
[2018-10-25] MEDS: Aspirin 81 mg Enteric Coated Tablet PO SCH (12:32)
[2018-10-25] MEDS: Docusate 100 MG CAP PO SCH ×2 (12:32→21:04)
[2018-10-25] MEDS: Escitalopram Oxalate 20 mg Tablet PO SCH (12:32)
[2018-10-25] MEDS: Carvedilol 6.25 MG TAB PO SCH ×2 (12:32→21:04)
[2018-10-25] MEDS: buPROPion HCl 100 MG TAB PO SCH ×2 (12:32→21:05)
[2018-10-25] MEDS: Fluticasone Propionate Nasal Spray 16 gm Bottle NASAL SCH (12:33)
[2018-10-25] MEDS: Naproxen 500 MG TAB PO SCH ×2 (12:33→21:06)
[2018-10-25] MEDS: Folic Acid/Vit B Comp W-C PO SCH (12:33)
[2018-10-25] MEDS: Ondansetron ODT 4 MG TAB PO PRN ×2 (15:06→21:52)
[2018-10-25] MEDS: Polyethylene Glycol 3350 17 GM Packet PO SCH (17:03)
[2018-10-25] MEDS: Acetaminophen 500 MG TAB PO PRN (17:36)
[2018-10-25] MEDS: Loratadine 10 MG TAB PO SCH (21:04)
[2018-10-25] MEDS: clonazePAM 0.5 MG TAB PO PRN (21:04)
[2018-10-25] MEDS: Pravastatin Sodium 20 MG TAB PO SCH (21:05)
[2018-10-25] MEDS: Temazepam 15 MG CAP PO PRN (21:05)
[2018-10-25] MEDS: Famotidine 20 MG TAB PO SCH (21:06)
[2018-10-26] MEDS: Calcium Acetate 667 MG CAP PO SCH ×3 (08:47→17:27)
[2018-10-26] MEDS: Heparin 5,000 UNITS/ML VIAL SC SCH ×2 (08:47→20:48)
[2018-10-26] MEDS: Fluticasone Propionate Nasal Spray 16 gm Bottle NASAL SCH (08:47)
[2018-10-26] MEDS: Naproxen 500 MG TAB PO SCH ×2 (08:48→20:48)
[2018-10-26] MEDS: Cyclobenzaprine 10 MG TAB PO PRN ×2 (08:48→20:49)
[2018-10-26] MEDS: Aspirin 81 mg Enteric Coated Tablet PO SCH (08:48)
[2018-10-26] MEDS: Carvedilol 6.25 MG TAB PO SCH (08:48)
[2018-10-26] MEDS: buPROPion HCl 100 MG TAB PO SCH ×2 (08:48→20:48)
[2018-10-26] MEDS: HYDROcodone/Acetaminophen 10/325 mg Tablet PO PRN ×2 (08:48→20:48)
[2018-10-26] MEDS: Docusate 100 MG CAP PO SCH ×2 (08:48→20:48)
[2018-10-26] MEDS: Escitalopram Oxalate 20 mg Tablet PO SCH (08:48)
[2018-10-26] MEDS: clonazePAM 0.5 MG TAB PO PRN ×2 (08:49→20:49)
[2018-10-26] MEDS: Folic Acid/Vit B Comp W-C PO SCH (08:49)
[2018-10-26] MEDS: Ondansetron ODT 4 MG TAB PO PRN ×2 (11:17→19:23)
--- NOTE | 2018-10-26 13:42 | PRG ---
DATE OF SERVICE: 10/26/2018 SUBJECTIVE: Ms. Alarcon is doing well. Denies any complaints. Resting comfortably. Tolerating her medications. OBJECTIVE: VITAL SIGNS: She is afebrile. Heart rate is 75, respirations 18, oxygen saturation 95% on room air, and blood pressure is 139/78. CARDIOVASCULAR SYSTEM: S1 and S2 plus. RESPIRATORY SYSTEM: Normal vesicular breath sounds. ABDOMEN: Soft, nontender, bowel sounds in all quadrants. EXTREMITIES: Without cyanosis or clubbing. CENTRAL NERVOUS SYSTEM: Slowly improving deconditioning. Apparently, staff is still concerned about her [id number] transfers and she is going to continue to work on it. IMPRESSION: 1. Infection of hardware for the right distal femur fracture, requiring removal of hardware. 2. End-stage renal disease, on hemodialysis. 3. Coronary artery disease. 4. Hypertension. 5. Dyslipidemia. 6. Improving deconditioning. 7. Depression and anxiety. PLAN: 1. Continue current medications. 2. Heart healthy, renal diet. 3. Bowel regimen. 4. Hemodialysis. 5. Vancomycin with hemodialysis until November 10. 6. Physical therapy. 7. Orthopedic precautions. 8. Laboratory values at hemodialysis. 9. Discussed with the patient and nursing in detail and all questions answered. Job ID: [id number]
[2018-10-26] MEDS: traMADol HCl 50 MG TAB PO PRN (16:13)
[2018-10-26] MEDS: Polyethylene Glycol 3350 17 GM Packet PO SCH ×2 (17:27→17:29)
[2018-10-26] MEDS: Loratadine 10 MG TAB PO SCH (20:49)
[2018-10-26] MEDS: Pravastatin Sodium 20 MG TAB PO SCH (20:49)
[2018-10-26] MEDS: Temazepam 15 MG CAP PO PRN (20:49)
[2018-10-26] MEDS: Famotidine 20 MG TAB PO SCH (20:50)
[2018-10-27] MEDS: traMADol HCl 50 MG TAB PO PRN (04:15)
[2018-10-27] MEDS: HYDROcodone/Acetaminophen 10/325 mg Tablet PO PRN ×3 (07:53→20:59)
[2018-10-27] MEDS: Calcium Acetate 667 MG CAP PO SCH ×3 (07:53→17:50)
[2018-10-27] MEDS: Cyclobenzaprine 10 MG TAB PO PRN ×2 (07:53→21:00)
[2018-10-27] MEDS: Aspirin 81 mg Enteric Coated Tablet PO SCH (09:07)
[2018-10-27] MEDS: Carvedilol 6.25 MG TAB PO SCH ×2 (09:07→21:00)
[2018-10-27] MEDS: buPROPion HCl 100 MG TAB PO SCH ×2 (09:07→20:59)
[2018-10-27] MEDS: Fluticasone Propionate Nasal Spray 16 gm Bottle NASAL SCH (09:08)
[2018-10-27] MEDS: Folic Acid/Vit B Comp W-C PO SCH (09:08)
[2018-10-27] MEDS: Escitalopram Oxalate 20 mg Tablet PO SCH (09:08)
[2018-10-27] MEDS: Naproxen 500 MG TAB PO SCH ×2 (09:08→21:00)
[2018-10-27] MEDS: Docusate 100 MG CAP PO SCH ×2 (09:08→21:00)
[2018-10-27] MEDS: Ondansetron ODT 4 MG TAB PO PRN (15:58)
[2018-10-27] MEDS: Polyethylene Glycol 3350 17 GM Packet PO SCH (17:50)
[2018-10-27] MEDS: Loratadine 10 MG TAB PO SCH (20:59)
[2018-10-27] MEDS: Temazepam 15 MG CAP PO PRN (20:59)
[2018-10-27] MEDS: Famotidine 20 MG TAB PO SCH (21:00)
[2018-10-27] MEDS: Pravastatin Sodium 20 MG TAB PO SCH (21:00)
[2018-10-28] MEDS: Fluticasone Propionate Nasal Spray 16 gm Bottle NASAL SCH (08:29)
[2018-10-28] MEDS: HYDROcodone/Acetaminophen 10/325 mg Tablet PO PRN ×2 (08:29→21:48)
[2018-10-28] MEDS: buPROPion HCl 100 MG TAB PO SCH ×2 (08:29→21:34)
[2018-10-28] MEDS: Escitalopram Oxalate 20 mg Tablet PO SCH (08:30)
[2018-10-28] MEDS: Aspirin 81 mg Enteric Coated Tablet PO SCH (08:30)
[2018-10-28] MEDS: Calcium Acetate 667 MG CAP PO SCH ×3 (08:30→17:23)
[2018-10-28] MEDS: Docusate 100 MG CAP PO SCH ×2 (08:30→21:34)
[2018-10-28] MEDS: Folic Acid/Vit B Comp W-C PO SCH (08:30)
[2018-10-28] MEDS: Naproxen 500 MG TAB PO SCH ×2 (08:30→21:35)
[2018-10-28] MEDS: Carvedilol 6.25 MG TAB PO SCH (08:31)
[2018-10-28] MEDS: Heparin 5,000 UNITS/ML VIAL SC SCH ×3 (08:41→22:04)
[2018-10-28] MEDS: Simethicone Chewable 80 MG TAB PO PRN (13:06)
[2018-10-28] MEDS: traMADol HCl 50 MG TAB PO PRN (13:07)
[2018-10-28] MEDS: Ondansetron ODT 4 MG TAB PO PRN ×2 (13:07→21:33)
[2018-10-28] MEDS: Acetaminophen 500 MG TAB PO PRN (13:07)
--- NOTE | 2018-10-28 14:26 | PRG ---
DATE OF SERVICE: 10/28/2018 SUBJECTIVE: Ms. Alarcon is doing well. Denies any complaints. Resting comfortably. Nursing was concerned that they seem to feel a fullness or a mass on the right lumbar quadrant. I examined her and it is mainly most likely some induration and scar tissue from her previous surgery. I do not see any discrete mass. It is nontender. No GI or symptoms. OBJECTIVE: VITAL SIGNS: She is afebrile. Heart rate 75, respirations 18, oxygen saturation 94% on room air, blood pressure 127/59. CARDIOVASCULAR SYSTEM: S1, S2 plus. RESPIRATORY SYSTEMS: Normal vesicular breath sounds. ABDOMEN: Soft, nontender. Bowel sounds in all quadrants. EXTREMITIES: Without cyanosis, clubbing. Right knee incision area with dressing. She does not have full extension on her right knee, and I advised her to really focus on working on that extension aspect with therapy. CENTRAL NERVOUS SYSTEM: AAO x3. Cranial nerves 2 through 12 intact. Improving deconditioning. IMPRESSION: 1. Infection of hardware used to fix right distal femur fracture, status post removal of hardware, wound VAC placement and subsequent removal of wound VAC. 2. Long-term IV antibiotics, ending November 10. She gets vancomycin with hemodialysis. 3. End-stage renal disease, on hemodialysis. 4. Coronary artery disease. 5. Hypertension. 6. Dyslipidemia. 7. Improving deconditioning. 8. Depression and anxiety. PLAN: 1. Continue current medications. 2. Heart-healthy renal diet. 3. Hemodialysis per Nephrology. 4. Vancomycin with hemodialysis until November 10. 5. Wound care. 6. Physical therapy. 7. DVT and stress ulcer prophylaxis. 8. Decubitus precautions. 9. Discussed with the patient and nursing in detail. All questions answered. Job ID: [id number]
[2018-10-28] MEDS: Polyethylene Glycol 3350 17 GM Packet PO SCH (17:23)
[2018-10-28] MEDS: Famotidine 20 MG TAB PO SCH (21:34)
[2018-10-28] MEDS: Pravastatin Sodium 20 MG TAB PO SCH (21:34)
[2018-10-28] MEDS: Loratadine 10 MG TAB PO SCH (21:35)
[2018-10-28] MEDS: Temazepam 15 MG CAP PO PRN (21:48)
[2018-10-29] MEDS: HYDROcodone/Acetaminophen 10/325 mg Tablet PO PRN ×2 (06:29→21:26)
[2018-10-29] MEDS: Calcium Acetate 667 MG CAP PO SCH ×3 (07:46→17:18)
[2018-10-29] MEDS: Ondansetron ODT 4 MG TAB PO PRN ×2 (07:54→21:23)
[2018-10-29] MEDS: Fluticasone Propionate Nasal Spray 16 gm Bottle NASAL SCH (07:54)
[2018-10-29] MEDS: Aspirin 81 mg Enteric Coated Tablet PO SCH (08:59)
[2018-10-29] MEDS: buPROPion HCl 100 MG TAB PO SCH ×2 (08:59→21:26)
[2018-10-29] MEDS: Carvedilol 6.25 MG TAB PO SCH ×2 (09:00→21:25)
[2018-10-29] MEDS: Docusate 100 MG CAP PO SCH ×2 (09:00→21:26)
[2018-10-29] MEDS: Escitalopram Oxalate 20 mg Tablet PO SCH (09:00)
[2018-10-29] MEDS: Naproxen 500 MG TAB PO SCH ×2 (09:00→21:24)
[2018-10-29] MEDS: Folic Acid/Vit B Comp W-C PO SCH (09:00)
--- NOTE | 2018-10-29 09:26 | PRG ---
DATE OF SERVICE: 10/29/2018 SUBJECTIVE: Ms. Alarcon is doing the same. She was seen on her way to hemodialysis. She denies any questions or concerns. No family at bedside. OBJECTIVE: VITAL SIGNS: She is afebrile. Heart rate 74, respirations 20, oxygen saturation 94% on room air, and blood pressure 155/69. CARDIOVASCULAR SYSTEM: S1, S2 plus. RESPIRATORY SYSTEM: Normal vesicular breath sounds. ABDOMEN: Soft, nontender. Bowel sounds in all quadrants. EXTREMITIES: Without cyanosis, clubbing. Right knee incision site with dressing. CENTRAL NERVOUS SYSTEM: AAO x3. Cranial nerves 2 through 12 intact. IMPRESSION: 1. Right distal femur fracture hardware infection, requiring removal of hardware and long-term antibiotics. 2. End-stage renal disease, on hemodialysis. 3. Coronary artery disease. 4. Hypertension. 5. Dyslipidemia. 6. Depression and anxiety. PLAN: 1. Continue current medications. 2. Hemodialysis per Nephrology. 3. Vancomycin with hemodialysis until November 10. 4. Wound care and Physical Therapy. 5. DVT and stress ulcer prophylaxis. 6. Decubitus precaution. 7. Laboratory values with hemodialysis. 8. Discussed with the patient in detail and all questions answered. Job ID: [id number]
[2018-10-29] MEDS: traMADol HCl 50 MG TAB PO PRN (14:57)
[2018-10-29] MEDS: Polyethylene Glycol 3350 17 GM Packet PO SCH (17:18)
[2018-10-29] MEDS: Pravastatin Sodium 20 MG TAB PO SCH (21:24)
[2018-10-29] MEDS: Loratadine 10 MG TAB PO SCH (21:24)
[2018-10-29] MEDS: Temazepam 15 MG CAP PO PRN (21:26)
[2018-10-29] MEDS: Famotidine 20 MG TAB PO SCH (21:26)
[2018-10-29] MEDS: Simethicone Chewable 80 MG TAB PO PRN (21:53)
[2018-10-30] MEDS: Fluticasone Propionate Nasal Spray 16 gm Bottle NASAL SCH (08:37)
[2018-10-30] MEDS: Heparin 5,000 UNITS/ML VIAL SC SCH ×2 (08:38→20:34)
[2018-10-30] MEDS: Carvedilol 6.25 MG TAB PO SCH ×2 (08:38→20:35)
[2018-10-30] MEDS: Naproxen 500 MG TAB PO SCH ×2 (08:39→20:33)
[2018-10-30] MEDS: Folic Acid/Vit B Comp W-C PO SCH (08:39)
[2018-10-30] MEDS: Calcium Acetate 667 MG CAP PO SCH ×3 (08:39→17:23)
[2018-10-30] MEDS: buPROPion HCl 100 MG TAB PO SCH ×2 (08:39→20:33)
[2018-10-30] MEDS: Docusate 100 MG CAP PO SCH ×2 (08:40→20:33)
[2018-10-30] MEDS: Escitalopram Oxalate 20 mg Tablet PO SCH (08:40)
[2018-10-30] MEDS: Aspirin 81 mg Enteric Coated Tablet PO SCH (08:40)
[2018-10-30] MEDS: traMADol HCl 50 MG TAB PO PRN (08:47)
--- NOTE | 2018-10-30 10:29 | PRG ---
DATE OF SERVICE: 10/30/2018 SUBJECTIVE: Ms. Alarcon is doing well. Apparently, she had some bleeding around her dialysis access site from the fistula and told her to hold her heparin. She apparently also needs to see Urology to get her periodic what sounds like urethral dilatation and she is going to call and schedule the appointment. She is noticing some pain in her right knee, but no fever, chills, swelling, or redness. OBJECTIVE: VITAL SIGNS: She is afebrile. Heart rate 81, respirations 20, oxygen saturation 95% on room air, blood pressure 144/71. CARDIOVASCULAR: S1, S2 plus. RESPIRATORY: Normal vesicular breath sounds. ABDOMEN: Soft, nontender. Bowel sounds heard in all quadrants. EXTREMITIES: Without cyanosis, clubbing. Right knee examination is within normal limits. Right knee examination does not show any redness or effusion. No palpable tenderness. IMPRESSION: 1. Infection of the hardware used for right distal femur fracture, requiring removal of hardware and long-term antibiotics. 2. End-stage renal disease, on hemodialysis. 3. Coronary artery disease. 4. Hypertension. 5. Dyslipidemia. 6. Depression and anxiety. 7. Questionable history of urethral stricture. PLAN: 1. Continue current medications. 2. Vancomycin with hemodialysis. 3. Heart healthy diet. 4. Physical therapy. 5. Orthopedic precautions. 6. Wound care. 7. Laboratory values with hemodialysis. 8. The patient will contact Urology and get the appointment scheduled. I do not have any history here as to what exactly she needs done. I told her if she has any questions or any issues, then to let me know what the urologist's name is and then I will call him. Discussed with nursing. Job ID: [id number]
[2018-10-30] MEDS: HYDROcodone/Acetaminophen 10/325 mg Tablet PO PRN ×2 (14:03→20:31)
[2018-10-30] MEDS: Polyethylene Glycol 3350 17 GM Packet PO SCH (17:23)
[2018-10-30] MEDS: Temazepam 15 MG CAP PO PRN (20:31)
[2018-10-30] MEDS: Famotidine 20 MG TAB PO SCH (20:33)
[2018-10-30] MEDS: Loratadine 10 MG TAB PO SCH (20:33)
[2018-10-30] MEDS: Pravastatin Sodium 20 MG TAB PO SCH (20:33)
[2018-10-30] MEDS: Cyclobenzaprine 10 MG TAB PO PRN (20:34)
[2018-10-31] MEDS: HYDROcodone/Acetaminophen 10/325 mg Tablet PO PRN ×2 (05:10→20:37)
[2018-10-31] MEDS: Calcium Acetate 667 MG CAP PO SCH ×3 (08:59→17:05)
[2018-10-31] MEDS: Docusate 100 MG CAP PO SCH ×2 (09:08→20:37)
[2018-10-31] MEDS: Escitalopram Oxalate 20 mg Tablet PO SCH (09:08)
[2018-10-31] MEDS: Naproxen 500 MG TAB PO SCH ×2 (09:08→20:38)
[2018-10-31] MEDS: buPROPion HCl 100 MG TAB PO SCH ×2 (09:08→20:38)
[2018-10-31] MEDS: Folic Acid/Vit B Comp W-C PO SCH (09:09)
[2018-10-31] MEDS: Carvedilol 6.25 MG TAB PO SCH (09:09)
[2018-10-31] MEDS: Heparin 5,000 UNITS/ML VIAL SC SCH ×2 (09:10→20:41)
[2018-10-31] MEDS: Fluticasone Propionate Nasal Spray 16 gm Bottle NASAL SCH (09:11)
[2018-10-31] MEDS: Aspirin 81 mg Enteric Coated Tablet PO SCH (09:11)
--- NOTE | 2018-10-31 11:34 | PRG ---
DATE OF SERVICE: 10/31/2018 SUBJECTIVE: Ms. Alarcon is doing the same. Denies any complaints. Resting comfortably. OBJECTIVE: VITAL SIGNS: She is afebrile, heart rate is 74, respirations 20, oxygen saturation 96% on room air, blood pressure 156/68. CARDIOVASCULAR SYSTEM: S1 and S2 plus. RESPIRATORY SYSTEM: Normal vesicular breath sounds. ABDOMEN: Soft, nontender. Bowel sounds in all quadrants. EXTREMITIES: Without cyanosis or clubbing. CENTRAL NERVOUS SYSTEM: AAO x3. Cranial nerves 2 through 12 grossly intact. Improving deconditioning. IMPRESSION: 1. Infection of hardware used to fix right distal femur fracture, requiring removal of hardware and initial placement of wound VAC, which has now since been removed. 2. Continue IV antibiotics until November 10. 3. End-stage renal disease, on hemodialysis. 4. Coronary artery disease. 5. Hypertension. 6. Dyslipidemia. 7. Depression and anxiety. PLAN: 1. Continue current medications. 2. Hemodialysis. 3. Heart-healthy renal diet. 4. DVT and stress ulcer prophylaxis. 5. Decubitus precautions. 6. Routine laboratory values. 7. Physical Therapy. 8. Discharge planning. Job ID: [id number]
[2018-10-31] MEDS: Ondansetron ODT 4 MG TAB PO PRN (17:05)
[2018-10-31] MEDS: Polyethylene Glycol 3350 17 GM Packet PO SCH (17:05)
[2018-10-31] MEDS: Pravastatin Sodium 20 MG TAB PO SCH (20:38)
[2018-10-31] MEDS: Loratadine 10 MG TAB PO SCH (20:38)
[2018-10-31] MEDS: Famotidine 20 MG TAB PO SCH (20:38)
[2018-10-31] MEDS: Temazepam 15 MG CAP PO PRN (20:38)
[2018-10-31] MEDS: Cyclobenzaprine 10 MG TAB PO PRN (20:39)
[2018-11-01] MEDS: Simethicone Chewable 80 MG TAB PO PRN (05:34)
[2018-11-01] MEDS: HYDROcodone/Acetaminophen 10/325 mg Tablet PO PRN ×3 (07:38→20:39)
[2018-11-01] MEDS: Calcium Acetate 667 MG CAP PO SCH ×3 (07:40→17:38)
[2018-11-01] MEDS: buPROPion HCl 100 MG TAB PO SCH ×2 (08:42→20:40)
[2018-11-01] MEDS: Aspirin 81 mg Enteric Coated Tablet PO SCH (09:00)
[2018-11-01] MEDS: Folic Acid/Vit B Comp W-C PO SCH (09:00)
[2018-11-01] MEDS: Carvedilol 6.25 MG TAB PO SCH ×2 (09:00→20:38)
[2018-11-01] MEDS: Fluticasone Propionate Nasal Spray 16 gm Bottle NASAL SCH (09:00)
[2018-11-01] MEDS: Escitalopram Oxalate 20 mg Tablet PO SCH (09:00)
[2018-11-01] MEDS: Docusate 100 MG CAP PO SCH ×2 (09:09→20:39)
[2018-11-01] MEDS: Naproxen 500 MG TAB PO SCH ×2 (09:10→20:38)
[2018-11-01] MEDS: Ondansetron ODT 4 MG TAB PO PRN (15:09)
[2018-11-01] MEDS: Polyethylene Glycol 3350 17 GM Packet PO SCH (17:37)
[2018-11-01] MEDS: Famotidine 20 MG TAB PO SCH (20:38)
[2018-11-01] MEDS: Temazepam 15 MG CAP PO PRN (20:38)
[2018-11-01] MEDS: Pravastatin Sodium 20 MG TAB PO SCH (20:38)
[2018-11-01] MEDS: Loratadine 10 MG TAB PO SCH (20:40)
[2018-11-01] MEDS: Cyclobenzaprine 10 MG TAB PO PRN (20:40)
[2018-11-02] MEDS: Fluticasone Propionate Nasal Spray 16 gm Bottle NASAL SCH (08:26)
[2018-11-02] MEDS: HYDROcodone/Acetaminophen 10/325 mg Tablet PO PRN ×2 (08:27→20:48)
[2018-11-02] MEDS: Escitalopram Oxalate 20 mg Tablet PO SCH (08:28)
[2018-11-02] MEDS: Calcium Acetate 667 MG CAP PO SCH ×3 (08:28→16:30)
[2018-11-02] MEDS: Cyclobenzaprine 10 MG TAB PO PRN ×2 (08:28→20:50)
[2018-11-02] MEDS: Aspirin 81 mg Enteric Coated Tablet PO SCH (08:28)
[2018-11-02] MEDS: Naproxen 500 MG TAB PO SCH ×2 (08:28→20:50)
[2018-11-02] MEDS: Docusate 100 MG CAP PO SCH ×2 (08:28→20:49)
[2018-11-02] MEDS: buPROPion HCl 100 MG TAB PO SCH ×2 (08:28→20:49)
[2018-11-02] MEDS: Heparin 5,000 UNITS/ML VIAL SC SCH ×2 (08:29→20:48)
[2018-11-02] MEDS: Folic Acid/Vit B Comp W-C PO SCH (08:29)
[2018-11-02] MEDS: Carvedilol 6.25 MG TAB PO SCH (08:29)
[2018-11-02] MEDS: Simethicone Chewable 80 MG TAB PO PRN (11:53)
--- NOTE | 2018-11-02 13:09 | PRG ---
DATE OF SERVICE: 11/02/2018 SUBJECTIVE: Ms. Alarcon is doing well. Denies any complaints. She ambulated apparently the most since admission. Tolerating her antibiotics and medications and her hemodialysis. No family at bedside. Discussed with case management and with nursing. OBJECTIVE: VITAL SIGNS: She is afebrile, heart rate 77, respirations 18, oxygen saturation 94% on room air, and blood pressure 141/65. CARDIOVASCULAR SYSTEM: S1 and S2 plus. RESPIRATORY SYSTEM: Normal vesicular breath sounds. ABDOMEN: Soft and nontender. Bowel sounds are heard. EXTREMITIES: Without cyanosis or clubbing. Right knee incision with dressing. CENTRAL NERVOUS SYSTEM: AAO x3. Cranial nerves 2 through 12 intact. IMPRESSION: 1. Infection of hardware used to fix right distal femur fracture requiring removal of hardware and long-term IV antibiotics. 2. End-stage renal disease, on hemodialysis. 3. Coronary artery disease. 4. Hypertension. 5. Dyslipidemia. 6. Depression and anxiety. PLAN: 1. Continue current medications. 2. Vancomycin with hemodialysis. 3. Hemodialysis per Nephrology. 4. Orthopedic precautions. 5. Wound care. 6. DVT and stress ulcer prophylaxis. 7. Decubitus precautions. 8. Physical therapy. 9. Discharge planning. Job ID: [id number]
[2018-11-02] MEDS: traMADol HCl 50 MG TAB PO PRN (14:59)
[2018-11-02] MEDS: Polyethylene Glycol 3350 17 GM Packet PO SCH (16:31)
[2018-11-02] MEDS: Famotidine 20 MG TAB PO SCH (20:48)
[2018-11-02] MEDS: Pravastatin Sodium 20 MG TAB PO SCH (20:49)
[2018-11-02] MEDS: Loratadine 10 MG TAB PO SCH (20:49)
[2018-11-02] MEDS: Temazepam 15 MG CAP PO PRN (20:49)
[2018-11-03] MEDS: HYDROcodone/Acetaminophen 10/325 mg Tablet PO PRN ×3 (06:34→21:05)
[2018-11-03] MEDS: Calcium Acetate 667 MG CAP PO SCH ×3 (07:33→16:41)
[2018-11-03] MEDS: Simethicone Chewable 80 MG TAB PO PRN (07:38)
[2018-11-03] MEDS: Aspirin 81 mg Enteric Coated Tablet PO SCH (09:23)
[2018-11-03] MEDS: Docusate 100 MG CAP PO SCH ×2 (09:23→21:04)
[2018-11-03] MEDS: Folic Acid/Vit B Comp W-C PO SCH (09:23)
[2018-11-03] MEDS: Escitalopram Oxalate 20 mg Tablet PO SCH (09:23)
[2018-11-03] MEDS: Fluticasone Propionate Nasal Spray 16 gm Bottle NASAL SCH (09:23)
[2018-11-03] MEDS: buPROPion HCl 100 MG TAB PO SCH ×2 (09:23→21:06)
[2018-11-03] MEDS: Naproxen 500 MG TAB PO SCH ×2 (09:23→21:04)
[2018-11-03] MEDS: Carvedilol 6.25 MG TAB PO SCH ×2 (09:23→21:06)
[2018-11-03] MEDS: traMADol HCl 50 MG TAB PO PRN (15:31)
[2018-11-03] MEDS: Polyethylene Glycol 3350 17 GM Packet PO SCH (16:41)
[2018-11-03] MEDS: Pravastatin Sodium 20 MG TAB PO SCH (21:04)
[2018-11-03] MEDS: Famotidine 20 MG TAB PO SCH (21:06)
[2018-11-03] MEDS: Cyclobenzaprine 10 MG TAB PO PRN (21:06)
[2018-11-03] MEDS: clonazePAM 0.5 MG TAB PO PRN (21:06)
[2018-11-03] MEDS: Loratadine 10 MG TAB PO SCH (21:06)
[2018-11-04] MEDS: HYDROcodone/Acetaminophen 10/325 mg Tablet PO PRN ×2 (05:40→20:44)
[2018-11-04] MEDS: Calcium Acetate 667 MG CAP PO SCH ×3 (09:21→17:34)
[2018-11-04] MEDS: Docusate 100 MG CAP PO SCH ×2 (09:22→20:44)
[2018-11-04] MEDS: Carvedilol 6.25 MG TAB PO SCH (09:22)
[2018-11-04] MEDS: Escitalopram Oxalate 20 mg Tablet PO SCH (09:22)
[2018-11-04] MEDS: Naproxen 500 MG TAB PO SCH ×2 (09:22→20:43)
[2018-11-04] MEDS: Heparin 5,000 UNITS/ML VIAL SC SCH ×2 (09:22→20:42)
[2018-11-04] MEDS: Aspirin 81 mg Enteric Coated Tablet PO SCH (09:22)
[2018-11-04] MEDS: Folic Acid/Vit B Comp W-C PO SCH (09:22)
[2018-11-04] MEDS: buPROPion HCl 100 MG TAB PO SCH ×2 (09:22→20:44)
[2018-11-04] MEDS: Fluticasone Propionate Nasal Spray 16 gm Bottle NASAL SCH (09:22)
--- NOTE | 2018-11-04 13:17 | PRG ---
DATE OF SERVICE: 11/04/2018 SUBJECTIVE: Ms. Alarcon apparently walked all the way around the nurse's station without stopping to rest. Denies any concerns or questions. Happy with her progress. We are trying to talk to therapy and see when they think she will be medically safe to go home. OBJECTIVE: VITAL SIGNS: She is afebrile. Heart rate is 75, respirations are 20, oxygen saturation 94% on room air, and blood pressure 141/65. CARDIOVASCULAR SYSTEM: S1 and S2 plus. RESPIRATORY SYSTEM: Normal vesicular breath sounds. ABDOMEN: Soft and nontender. Bowel sounds heard in all quadrants. EXTREMITIES: Without cyanosis or clubbing. Right knee area incision with dressing. CENTRAL NERVOUS SYSTEM: AAO x3. Cranial nerves 2 through 12 intact. Improving deconditioning. IMPRESSION: 1. Infection of hardware used to fix right distal femur fracture, status post removal of hardware and requiring long-term IV antibiotics. 2. End-stage renal disease, on hemodialysis. 3. Coronary artery disease. 4. Hypertension. 5. Dyslipidemia. 6. Depression and anxiety. 7. Improving deconditioning. 8. Anemia of chronic disease. PLAN: 1. Continue current medications. 2. Heart healthy renal diet. 3. Wound care. 4. DVT and stress ulcer prophylaxis. 5. Decubitus precautions. 6. Routine laboratory values. 7. Orthopedic precautions. 8. Discussed with the patient in detail. All questions were answered. 9. Continue therapy. Job ID: [id number]
[2018-11-04] MEDS: traMADol HCl 50 MG TAB PO PRN (14:44)
[2018-11-04] MEDS: Polyethylene Glycol 3350 17 GM Packet PO SCH (17:34)
[2018-11-04] MEDS: Cyclobenzaprine 10 MG TAB PO PRN (20:42)
[2018-11-04] MEDS: Famotidine 20 MG TAB PO SCH (20:42)
[2018-11-04] MEDS: Temazepam 15 MG CAP PO PRN (20:42)
[2018-11-04] MEDS: Pravastatin Sodium 20 MG TAB PO SCH (20:43)
[2018-11-04] MEDS: Loratadine 10 MG TAB PO SCH (20:43)
[2018-11-04] MEDS: clonazePAM 0.5 MG TAB PO PRN (20:43)
[2018-11-05] MEDS: traMADol HCl 50 MG TAB PO PRN ×2 (06:19→14:11)
[2018-11-05] MEDS: Acetaminophen 500 MG TAB PO PRN ×2 (06:19→14:11)
[2018-11-05] MEDS: Calcium Acetate 667 MG CAP PO SCH ×3 (07:57→17:31)
[2018-11-05] MEDS: Aspirin 81 mg Enteric Coated Tablet PO SCH (07:57)
[2018-11-05] MEDS: buPROPion HCl 100 MG TAB PO SCH ×2 (07:57→20:47)
[2018-11-05] MEDS: Escitalopram Oxalate 20 mg Tablet PO SCH (11:36)
[2018-11-05] MEDS: Carvedilol 6.25 MG TAB PO SCH ×2 (11:36→20:50)
[2018-11-05] MEDS: Docusate 100 MG CAP PO SCH ×2 (11:36→20:48)
[2018-11-05] MEDS: Fluticasone Propionate Nasal Spray 16 gm Bottle NASAL SCH (11:37)
[2018-11-05] MEDS: Naproxen 500 MG TAB PO SCH ×2 (11:37→20:48)
[2018-11-05] MEDS: Folic Acid/Vit B Comp W-C PO SCH (11:37)
[2018-11-05 14:08] VITALS: BMI 21.8
[2018-11-05] MEDS: Polyethylene Glycol 3350 17 GM Packet PO SCH (17:31)
[2018-11-05] MEDS: Cyclobenzaprine 10 MG TAB PO PRN (20:47)
[2018-11-05] MEDS: Pravastatin Sodium 20 MG TAB PO SCH (20:48)
[2018-11-05] MEDS: clonazePAM 0.5 MG TAB PO PRN (20:48)
[2018-11-05] MEDS: Temazepam 15 MG CAP PO PRN (20:48)
[2018-11-05] MEDS: Loratadine 10 MG TAB PO SCH (20:48)
[2018-11-05] MEDS: Famotidine 20 MG TAB PO SCH (20:49)
[2018-11-05] MEDS: HYDROcodone/Acetaminophen 10/325 mg Tablet PO PRN (20:49)
--- NOTE | 2018-11-06 08:05 | PRG ---
DATE OF SERVICE: 11/06/2018 SUBJECTIVE: Ms. Alarcon is a very pleasant 67-year-old white female, who unfortunately had a right distal femur intra-articular fracture. She had ORIF done, but it became infected with MRSA. She had to have her hardware removed and was placed in a knee immobilizer and on vancomycin by Dr. Mckeon. She does have end-stage renal disease and goes to hemodialysis in [place] on Thursday, Thursday, and Thursday. She is here to increase her strength and stamina with physical therapy and occupational therapy. The patient states she is doing very well and yesterday, she walked all the way around the nurse's station without stopping. OBJECTIVE: VITAL SIGNS: Today reveal blood pressure 152/67, pulse 81, respirations 18, O2 saturation 95% on room air, and T-max 98.2. GENERAL: This is a well-developed, well-nourished, very pleasant white female, in no apparent distress at this time. HEENT: Reveals normocephalic and nontraumatic cranium. Pupils are equal, round, reactive. Extraocular movements are intact. Nose and throat are slightly dry. NECK: Supple without masses, nodes, or bruits. CHEST: Clear to auscultation. No rales, rhonchi, or wheezes are heard. HEART: Reveals a regular rate and rhythm without murmurs, gallops, or rubs. ABDOMEN: Soft, nontender without organomegaly. Normal bowel sounds are noted. No rebound or guarding is noted. : Deferred. EXTREMITIES: Reveal no clubbing, cyanosis, or edema. Right knee incision is dressed and not oozing. NEURO: The patient is oriented x3. IMPRESSION: 1. Distal right femur fracture with methicillin-resistant Staphylococcus aureus infection, status post removal, requiring long-term antibiotics. 2. End-stage renal disease, on hemodialysis on Thursday, Thursday, and Thursday in [place]. 3. Hypertension. 4. Coronary artery disease. 5. Anemia of chronic disease. 6. Hyperlipidemia. 7. Anxiety-depressive disorder. 8. Generalized weakness. PLAN: 1. Continue present medications. 2. Continue DVT and stress ulcer prophylaxis. 3. Decubitus precautions. 4. Orthopedic precautions. 5. Continue healthy heart renal diet. 6. Wound care p.r.n. 7. Routine labs. Job ID: [id number]
[2018-11-06] MEDS: Calcium Acetate 667 MG CAP PO SCH ×3 (08:37→16:29)
[2018-11-06] MEDS: Fluticasone Propionate Nasal Spray 16 gm Bottle NASAL SCH (08:38)
[2018-11-06] MEDS: traMADol HCl 50 MG TAB PO PRN ×3 (08:38→21:17)
[2018-11-06] MEDS: Cyclobenzaprine 10 MG TAB PO PRN ×2 (08:39→21:16)
[2018-11-06] MEDS: Carvedilol 6.25 MG TAB PO SCH ×2 (08:39→21:17)
[2018-11-06] MEDS: Acetaminophen 500 MG TAB PO PRN ×3 (08:39→21:15)
[2018-11-06] MEDS: Docusate 100 MG CAP PO SCH ×2 (08:39→21:16)
[2018-11-06] MEDS: Aspirin 81 mg Enteric Coated Tablet PO SCH (08:39)
[2018-11-06] MEDS: buPROPion HCl 100 MG TAB PO SCH ×2 (08:39→21:15)
[2018-11-06] MEDS: Escitalopram Oxalate 20 mg Tablet PO SCH (08:39)
[2018-11-06] MEDS: Naproxen 500 MG TAB PO SCH ×2 (08:39→21:16)
[2018-11-06] MEDS: Folic Acid/Vit B Comp W-C PO SCH (08:40)
[2018-11-06] MEDS: Heparin 5,000 UNITS/ML VIAL SC SCH ×2 (08:41→21:26)
[2018-11-06] MEDS: Polyethylene Glycol 3350 17 GM Packet PO SCH (16:30)
[2018-11-06] MEDS: Famotidine 20 MG TAB PO SCH (21:15)
[2018-11-06] MEDS: Temazepam 15 MG CAP PO PRN (21:15)
[2018-11-06] MEDS: Pravastatin Sodium 20 MG TAB PO SCH (21:16)
[2018-11-06] MEDS: Loratadine 10 MG TAB PO SCH (21:17)
[2018-11-06] MEDS: clonazePAM 0.5 MG TAB PO PRN (21:17)
[2018-11-07] MEDS: Calcium Acetate 667 MG CAP PO SCH ×3 (08:35→16:56)
[2018-11-07] MEDS: Naproxen 500 MG TAB PO SCH ×2 (08:36→21:01)
[2018-11-07] MEDS: Docusate 100 MG CAP PO SCH ×2 (08:36→21:00)
[2018-11-07] MEDS: Carvedilol 6.25 MG TAB PO SCH (08:36)
[2018-11-07] MEDS: Cyclobenzaprine 10 MG TAB PO PRN ×2 (08:36→21:02)
[2018-11-07] MEDS: Escitalopram Oxalate 20 mg Tablet PO SCH (08:36)
[2018-11-07] MEDS: buPROPion HCl 100 MG TAB PO SCH ×2 (08:36→21:02)
[2018-11-07] MEDS: Acetaminophen 500 MG TAB PO PRN ×2 (08:36→14:16)
[2018-11-07] MEDS: Aspirin 81 mg Enteric Coated Tablet PO SCH (08:36)
[2018-11-07] MEDS: Folic Acid/Vit B Comp W-C PO SCH (08:37)
[2018-11-07] MEDS: Fluticasone Propionate Nasal Spray 16 gm Bottle NASAL SCH (08:38)
[2018-11-07] MEDS: traMADol HCl 50 MG TAB PO PRN ×2 (08:38→14:16)
[2018-11-07] MEDS: Heparin 5,000 UNITS/ML VIAL SC SCH ×2 (08:39→21:00)
--- NOTE | 2018-11-07 09:24 | PRG ---
DATE OF SERVICE: 11/07/2018 SUBJECTIVE: Ms. Alarcon is a very pleasant 67-year-old white female with a distal right femur intra-articular fracture. She had an ORIF done, but it became infected. She had to have her hardware removed. She was placed in knee immobilizer and vancomycin for multiple days. She did have end-stage renal disease and has been going to hemodialysis in [place] on Thursday, Thursday, and Thursday. She is here to increase her strength and stamina with physical therapy and occupational therapy. The patient did very well staying out of bed yesterday and walked to the nurse's station the day before. She hopefully continues to improve, will be home hopefully soon. OBJECTIVE: VITAL SIGNS: Reveal blood pressure 127/81, pulse 76, respirations 20, O2 saturation 93% to 94% on room air, T-max 97.6. GENERAL: This is a well-developed, well-nourished, very pleasant, thin, white female, in no apparent distress at this time. HEENT: Reveals normocephalic and nontraumatic cranium. Pupils are equally round and reactive. Extraocular movements are intact. Nose and throat are slightly dry. NECK: Supple without masses, nodes, or bruits. CHEST: Clear to auscultation. No rales, rhonchi, wheezes, or cough is noted. HEART: Reveals a regular rate and rhythm without murmurs, gallops, or rubs. ABDOMEN: Soft and nontender without organomegaly. Normal bowel sounds are noted. No rebound or guarding is noted. : Deferred. EXTREMITIES: Reveal no clubbing, cyanosis, or edema. Right incision is well healed. NEUROLOGIC: The patient is oriented x3. IMPRESSION: 1. Distal right femur with methicillin-resistant Staphylococcus aureus. 2. End-stage renal disease, on hemodialysis Thursday, Thursday, and Thursday in [place], [place]. 3. Hypertension. 4. Coronary artery disease. 5. Anemia of chronic disease. 6. Hyperlipidemia. 7. Anxiety-depressive disorder. 8. Generalized weakness. PLAN: 1. Continue present medications. 2. Continue DVT and stress ulcer prophylaxis. 3. Decubitus precautions. 4. Orthopedic precautions. 5. Continue healthy heart and renal diet. 6. Wound care p.r.n. 7. Routine labs. Job ID: [id number]
[2018-11-07] MEDS: HYDROcodone/Acetaminophen 10/325 mg Tablet PO PRN ×2 (11:57→21:00)
[2018-11-07] MEDS: Polyethylene Glycol 3350 17 GM Packet PO SCH (16:56)
[2018-11-07] MEDS: clonazePAM 0.5 MG TAB PO PRN (21:01)
[2018-11-07] MEDS: Temazepam 15 MG CAP PO PRN (21:02)
[2018-11-07] MEDS: Pravastatin Sodium 20 MG TAB PO SCH (21:03)
[2018-11-07] MEDS: Loratadine 10 MG TAB PO SCH (21:03)
[2018-11-07] MEDS: Famotidine 20 MG TAB PO SCH (21:03)
[2018-11-08] MEDS: HYDROcodone/Acetaminophen 10/325 mg Tablet PO PRN ×3 (07:40→20:58)
[2018-11-08] MEDS: Calcium Acetate 667 MG CAP PO SCH ×2 (17:36→17:37)
[2018-11-08] MEDS: Polyethylene Glycol 3350 17 GM Packet PO SCH (17:37)
[2018-11-08] MEDS: Aspirin 81 mg Enteric Coated Tablet PO SCH (17:37)
[2018-11-08] MEDS: Fluticasone Propionate Nasal Spray 16 gm Bottle NASAL SCH (17:39)
[2018-11-08] MEDS: Docusate 100 MG CAP PO SCH ×2 (17:39→20:57)
[2018-11-08] MEDS: Folic Acid/Vit B Comp W-C PO SCH (17:39)
[2018-11-08] MEDS: Naproxen 500 MG TAB PO SCH ×2 (17:39→21:00)
[2018-11-08] MEDS: Carvedilol 6.25 MG TAB PO SCH ×2 (17:39→20:57)
[2018-11-08] MEDS: Escitalopram Oxalate 20 mg Tablet PO SCH (17:39)
[2018-11-08] MEDS: buPROPion HCl 100 MG TAB PO SCH ×2 (17:39→20:57)
[2018-11-08] MEDS: Cyclobenzaprine 10 MG TAB PO PRN (20:57)
[2018-11-08] MEDS: Temazepam 15 MG CAP PO PRN (20:57)
[2018-11-08] MEDS: Loratadine 10 MG TAB PO SCH (20:58)
[2018-11-08] MEDS: Pravastatin Sodium 20 MG TAB PO SCH (20:59)
[2018-11-08] MEDS: Famotidine 20 MG TAB PO SCH (21:00)
[2018-11-09] MEDS: traMADol HCl 50 MG TAB PO PRN ×2 (04:31→13:15)
[2018-11-09] MEDS: Acetaminophen 500 MG TAB PO PRN (04:32)
[2018-11-09] MEDS: Fluticasone Propionate Nasal Spray 16 gm Bottle NASAL SCH (08:05)
[2018-11-09] MEDS: Heparin 5,000 UNITS/ML VIAL SC SCH ×2 (08:05→20:37)
[2018-11-09] MEDS: Aspirin 81 mg Enteric Coated Tablet PO SCH (08:06)
[2018-11-09] MEDS: Escitalopram Oxalate 20 mg Tablet PO SCH (08:06)
[2018-11-09] MEDS: buPROPion HCl 100 MG TAB PO SCH ×2 (08:06→20:37)
[2018-11-09] MEDS: Folic Acid/Vit B Comp W-C PO SCH (08:06)
[2018-11-09] MEDS: Docusate 100 MG CAP PO SCH ×2 (08:06→20:37)
[2018-11-09] MEDS: Carvedilol 6.25 MG TAB PO SCH (08:06)
[2018-11-09] MEDS: Naproxen 500 MG TAB PO SCH ×2 (08:06→20:38)
[2018-11-09] MEDS: Calcium Acetate 667 MG CAP PO SCH ×3 (08:06→17:25)
[2018-11-09] MEDS: HYDROcodone/Acetaminophen 10/325 mg Tablet PO PRN ×2 (09:04→20:39)
--- NOTE | 2018-11-09 10:02 | PRG ---
DATE OF SERVICE: 11/09/2018 SUBJECTIVE: Ms. Alarcon is complaining of some soreness in her right groin. Therapy has apparently been stretching her legs and doing some new exercises. She denies any radiation. She denies any numbness or weakness. She also has an appointment with her orthopedic surgeon this morning. She is supposed to finish her antibiotics on the and that is with dialysis. We are waiting on weekly case conference today to see when therapy states she is stable to go home. Discussed with Case Management and I advised them to arrange for home health as well. OBJECTIVE: VITAL SIGNS: She is afebrile, heart rate 69, respirations 16, oxygen saturation 96% on room air, and blood pressure 141/65. CARDIOVASCULAR SYSTEM: S1 and S2 plus. RESPIRATORY SYSTEM: Normal vesicular breath sounds. ABDOMEN: Soft and nontender. Bowel sounds heard in all quadrants. EXTREMITIES: Without cyanosis or clubbing. CENTRAL NERVOUS SYSTEM: AAO x3. Grossly nonfocal. IMPRESSION: 1. Infection of hardware used to fix right distal femur fracture, requiring removal of hardware, placement of wound VAC with subsequent removal, requiring long-term antibiotics. 2. Coronary artery disease. 3. Gastroesophageal reflux disease. 4. Osteoporosis. 5. Allergic rhinitis. 6. End-stage renal disease, on hemodialysis. 7. Dyslipidemia. PLAN: 1. Continue orthopedic precautions and wound care. 2. Hemodialysis per Nephrology. 3. Vancomycin with hemodialysis. 4. Heart healthy renal diet. 5. Decubitus precautions. 6. DVT and stress ulcer prophylaxis. 7. Routine laboratory values with hemodialysis. 8. Discussed with the patient and nursing in detail and all questions answered. Job ID: [id number]
[2018-11-09] MEDS: Polyethylene Glycol 3350 17 GM Packet PO SCH (16:14)
[2018-11-09] MEDS: clonazePAM 0.5 MG TAB PO PRN (20:37)
[2018-11-09] MEDS: Famotidine 20 MG TAB PO SCH (20:37)
[2018-11-09] MEDS: Cyclobenzaprine 10 MG TAB PO PRN (20:38)
[2018-11-09] MEDS: Pravastatin Sodium 20 MG TAB PO SCH (20:38)
[2018-11-09] MEDS: Temazepam 15 MG CAP PO PRN (20:40)
[2018-11-09] MEDS: Loratadine 10 MG TAB PO SCH (20:41)
[2018-11-09] MEDS: Ondansetron ODT 4 MG TAB PO PRN (21:31)
[2018-11-10] MEDS: Simethicone Chewable 80 MG TAB PO PRN (01:40)
[2018-11-10] MEDS: HYDROcodone/Acetaminophen 10/325 mg Tablet PO PRN ×3 (07:07→20:41)
[2018-11-10] MEDS: Calcium Acetate 667 MG CAP PO SCH ×3 (07:08→17:42)
[2018-11-10] MEDS: Ondansetron ODT 4 MG TAB PO PRN ×2 (07:08→14:34)
[2018-11-10] MEDS: Aspirin 81 mg Enteric Coated Tablet PO SCH (09:19)
[2018-11-10] MEDS: buPROPion HCl 100 MG TAB PO SCH ×2 (09:19→20:44)
[2018-11-10] MEDS: Docusate 100 MG CAP PO SCH ×2 (09:20→20:44)
[2018-11-10] MEDS: Escitalopram Oxalate 20 mg Tablet PO SCH (09:20)
[2018-11-10] MEDS: Carvedilol 6.25 MG TAB PO SCH ×2 (09:20→20:43)
[2018-11-10] MEDS: Folic Acid/Vit B Comp W-C PO SCH (09:20)
[2018-11-10] MEDS: Fluticasone Propionate Nasal Spray 16 gm Bottle NASAL SCH (09:20)
[2018-11-10] MEDS: Naproxen 500 MG TAB PO SCH ×2 (09:20→20:43)
[2018-11-10] MEDS: Polyethylene Glycol 3350 17 GM Packet PO SCH (17:42)
[2018-11-10] MEDS: Loratadine 10 MG TAB PO SCH (20:42)
[2018-11-10] MEDS: Cyclobenzaprine 10 MG TAB PO PRN (20:43)
[2018-11-10] MEDS: Pravastatin Sodium 20 MG TAB PO SCH (20:43)
[2018-11-10] MEDS: Temazepam 15 MG CAP PO PRN (20:44)
[2018-11-10] MEDS: Famotidine 20 MG TAB PO SCH (20:44)
[2018-11-11] MEDS: HYDROcodone/Acetaminophen 10/325 mg Tablet PO PRN ×3 (03:46→22:32)
[2018-11-11] MEDS: Ondansetron ODT 4 MG TAB PO PRN ×3 (05:18→19:10)
[2018-11-11] MEDS: Calcium Acetate 667 MG CAP PO SCH ×3 (08:22→17:26)
[2018-11-11] MEDS: Acetaminophen 500 MG TAB PO PRN (08:23)
[2018-11-11] MEDS: Escitalopram Oxalate 20 mg Tablet PO SCH (08:23)
[2018-11-11] MEDS: buPROPion HCl 100 MG TAB PO SCH ×2 (08:23→21:18)
[2018-11-11] MEDS: traMADol HCl 50 MG TAB PO PRN (08:23)
[2018-11-11] MEDS: Aspirin 81 mg Enteric Coated Tablet PO SCH (08:23)
[2018-11-11] MEDS: Docusate 100 MG CAP PO SCH ×2 (08:23→21:18)
[2018-11-11] MEDS: Folic Acid/Vit B Comp W-C PO SCH (08:24)
[2018-11-11] MEDS: Naproxen 500 MG TAB PO SCH ×2 (08:24→21:29)
[2018-11-11] MEDS: Fluticasone Propionate Nasal Spray 16 gm Bottle NASAL SCH (08:24)
[2018-11-11] MEDS: Carvedilol 6.25 MG TAB PO SCH (08:25)
[2018-11-11] MEDS: Heparin 5,000 UNITS/ML VIAL SC SCH (08:26)
[2018-11-11] MEDS: clonazePAM 0.5 MG TAB PO PRN ×2 (09:59→21:21)
[2018-11-11] MEDS: Simethicone Chewable 80 MG TAB PO PRN ×2 (09:59→22:31)
--- NOTE | 2018-11-11 14:22 | PRG ---
DATE OF SERVICE: 11/11/2018 SUBJECTIVE: Ms. Alarcon is doing the same. Denies any concerns. Discussed with the director [employer] and she apparently wants to stay here to get stronger. Anticipated discharge date is apparently the end of the week. Discussed with the patient and she states that nobody has told her what her discharge date is, but she has used [facility] in the past and she is happy with them and wants them again if she goes home. OBJECTIVE: VITAL SIGNS: She is afebrile. Heart rate 87, respirations 20, oxygen saturation 97% on room air, and blood pressure 102/55. CARDIOVASCULAR SYSTEM: S1 and S2 plus. RESPIRATORY SYSTEM: Normal vesicular breath sounds. ABDOMEN: Soft and nontender. Bowel sounds head in all quadrants. EXTREMITIES: Without cyanosis or clubbing. Right knee incision with dressing. CENTRAL NERVOUS SYSTEM: Awake and responsive. Cranial nerves 2 through 12 intact. Generalized weakness. IMPRESSION: 1. Infection of hardware used for right distal femur fracture, requiring removal of hardware, placement of wound VAC and long-term IV antibiotics, which was given with dialysis. 2. Coronary artery disease. 3. End-stage renal disease, on hemodialysis. 4. Dyslipidemia. 5. Gastroesophageal reflux disease. 6. Osteoporosis. 7. Allergic rhinitis. PLAN: 1. Continue current medications. 2. Wound care. 3. Orthopedic precautions. 4. Hemodialysis per Nephrology. 5. Physical therapy. 6. Discharge to home once safe from therapy standpoint. 7. Discharge planning. 8. Laboratory values with dialysis. 9. Discussed with the patient and nursing in detail. All her questions answered. Job ID: [id number]
[2018-11-11] MEDS: Polyethylene Glycol 3350 17 GM Packet PO SCH (17:26)
[2018-11-11] MEDS: Pravastatin Sodium 20 MG TAB PO SCH (21:19)
[2018-11-11] MEDS: Sucralfate 1 GM TAB PO SCH (21:19)
[2018-11-11] MEDS: Loratadine 10 MG TAB PO SCH (21:19)
[2018-11-11] MEDS: Cyclobenzaprine 10 MG TAB PO PRN (22:34)
[2018-11-11] MEDS: Temazepam 15 MG CAP PO PRN (22:36)
[2018-11-12] MEDS: Sucralfate 1 GM TAB PO SCH ×4 (07:27→20:59)
[2018-11-12] MEDS: Calcium Acetate 667 MG CAP PO SCH ×3 (07:27→16:39)
[2018-11-12] MEDS: HYDROcodone/Acetaminophen 10/325 mg Tablet PO PRN ×3 (07:27→21:00)
[2018-11-12] MEDS: Fluticasone Propionate Nasal Spray 16 gm Bottle NASAL SCH (07:29)
[2018-11-12] MEDS: Simethicone Chewable 80 MG TAB PO PRN ×2 (07:42→16:42)
[2018-11-12] MEDS: Aspirin 81 mg Enteric Coated Tablet PO SCH (10:46)
[2018-11-12] MEDS: buPROPion HCl 100 MG TAB PO SCH ×2 (10:47→20:59)
[2018-11-12] MEDS: Docusate 100 MG CAP PO SCH ×2 (10:47→20:59)
[2018-11-12] MEDS: Folic Acid/Vit B Comp W-C PO SCH (10:47)
[2018-11-12] MEDS: Escitalopram Oxalate 20 mg Tablet PO SCH (10:47)
[2018-11-12] MEDS: Carvedilol 6.25 MG TAB PO SCH ×2 (10:47→20:58)
[2018-11-12] MEDS: Naproxen 500 MG TAB PO SCH ×2 (10:47→21:01)
[2018-11-12] MEDS: Polyethylene Glycol 3350 17 GM Packet PO SCH (16:39)
[2018-11-12] MEDS: Pravastatin Sodium 20 MG TAB PO SCH (20:59)
[2018-11-12] MEDS: Loratadine 10 MG TAB PO SCH (20:59)
[2018-11-12] MEDS: Temazepam 15 MG CAP PO PRN (21:00)
[2018-11-12] MEDS: Cyclobenzaprine 10 MG TAB PO PRN (21:00)
[2018-11-13] MEDS: Sucralfate 1 GM TAB PO SCH ×4 (08:12→20:33)
[2018-11-13] MEDS: Calcium Acetate 667 MG CAP PO SCH ×3 (08:12→16:30)
[2018-11-13] MEDS: Docusate 100 MG CAP PO SCH ×2 (08:13→20:34)
[2018-11-13] MEDS: Escitalopram Oxalate 20 mg Tablet PO SCH (08:13)
[2018-11-13] MEDS: Naproxen 500 MG TAB PO SCH ×2 (08:13→20:35)
[2018-11-13] MEDS: buPROPion HCl 100 MG TAB PO SCH ×2 (08:13→20:35)
[2018-11-13] MEDS: Carvedilol 6.25 MG TAB PO SCH ×2 (08:13→20:34)
[2018-11-13] MEDS: Aspirin 81 mg Enteric Coated Tablet PO SCH (08:13)
[2018-11-13] MEDS: Folic Acid/Vit B Comp W-C PO SCH (08:13)
[2018-11-13] MEDS: Fluticasone Propionate Nasal Spray 16 gm Bottle NASAL SCH (08:16)
--- NOTE | 2018-11-13 14:13 | PRG ---
DATE OF SERVICE: 11/13/2018 SUBJECTIVE: Ms. Alarcon is feeling much better. Her epigastric discomfort has resolved. She apparently had a bowel movement this morning and she did not see any black tarry stool. Discussed with nursing. No concerns. OBJECTIVE: VITAL SIGNS: She is afebrile. Heart rate is 82, respirations 20, oxygen saturation 96% on room air, blood pressure 101/47. CARDIOVASCULAR: S1-S2 plus. RESPIRATORY: Normal vesicular breath sounds. ABDOMEN: Soft, nontender. Bowel sounds heard in all quadrants. EXTREMITIES: Without cyanosis or clubbing. Peripheral pulses are palpable. CENTRAL NERVOUS SYSTEM: AAO x3. Cranial nerves 2 through 12 are intact. IMPRESSION: 1. Resolved infection of hardware used to fix her right distal femur fracture. 2. End-stage renal disease, on hemodialysis. 3. Coronary artery disease. 4. Hypertension. 5. Depression and anxiety. 6. Improving gastritis. PLAN: 1. Continue current medications. 2. Hemodialysis per Nephrology. 3. Continue therapy and discharge planning. 4. Heart healthy, renal diet. 5. DVT and stress ulcer prophylaxis, but I have held her heparin since she was having the black tarry stool. She is ambulating and moving around enough that she is at low-risk for DVT. 6. Decubitus precaution. 7. Continue stress ulcer prophylaxis with Protonix. 8. Discussed with the patient and nursing in detail. All questions answered. Job ID: [id number]
[2018-11-13] MEDS: traMADol HCl 50 MG TAB PO PRN (16:31)
[2018-11-13] MEDS: Polyethylene Glycol 3350 17 GM Packet PO SCH (16:31)
[2018-11-13] MEDS: Temazepam 15 MG CAP PO PRN (20:34)
[2018-11-13] MEDS: HYDROcodone/Acetaminophen 10/325 mg Tablet PO PRN (20:34)
[2018-11-13] MEDS: Loratadine 10 MG TAB PO SCH (20:35)
[2018-11-13] MEDS: Pravastatin Sodium 20 MG TAB PO SCH (20:35)
[2018-11-13] MEDS: Cyclobenzaprine 10 MG TAB PO PRN (20:35)
[2018-11-13] MEDS: clonazePAM 0.5 MG TAB PO PRN (20:35)
[2018-11-14] MEDS: Sucralfate 1 GM TAB PO SCH ×4 (07:57→21:22)
[2018-11-14] MEDS: Calcium Acetate 667 MG CAP PO SCH ×3 (07:57→17:19)
[2018-11-14] MEDS: Naproxen 500 MG TAB PO SCH ×2 (08:00→21:23)
[2018-11-14] MEDS: Aspirin 81 mg Enteric Coated Tablet PO SCH (08:00)
[2018-11-14] MEDS: Carvedilol 6.25 MG TAB PO SCH (08:00)
[2018-11-14] MEDS: Docusate 100 MG CAP PO SCH ×2 (08:00→21:23)
[2018-11-14] MEDS: Folic Acid/Vit B Comp W-C PO SCH (08:01)
[2018-11-14] MEDS: Fluticasone Propionate Nasal Spray 16 gm Bottle NASAL SCH (08:01)
[2018-11-14] MEDS: Escitalopram Oxalate 20 mg Tablet PO SCH (08:01)
[2018-11-14] MEDS: buPROPion HCl 100 MG TAB PO SCH ×2 (08:01→21:22)
[2018-11-14] MEDS: traMADol HCl 50 MG TAB PO PRN ×2 (09:57→17:51)
[2018-11-14] MEDS: Polyethylene Glycol 3350 17 GM Packet PO SCH (17:19)
[2018-11-14] MEDS: Pravastatin Sodium 20 MG TAB PO SCH (21:20)
[2018-11-14] MEDS: HYDROcodone/Acetaminophen 10/325 mg Tablet PO PRN (21:22)
[2018-11-14] MEDS: Temazepam 15 MG CAP PO PRN (21:23)
[2018-11-14] MEDS: Cyclobenzaprine 10 MG TAB PO PRN (21:23)
[2018-11-14] MEDS: Loratadine 10 MG TAB PO SCH (21:23)
[2018-11-15] MEDS: traMADol HCl 50 MG TAB PO PRN ×3 (07:33→20:13)
[2018-11-15] MEDS: Acetaminophen 500 MG TAB PO PRN ×3 (07:34→20:14)
[2018-11-15] MEDS: Sucralfate 1 GM TAB PO SCH ×4 (07:34→20:14)
[2018-11-15] MEDS: Calcium Acetate 667 MG CAP PO SCH ×3 (07:35→17:47)
[2018-11-15] MEDS: buPROPion HCl 100 MG TAB PO SCH ×2 (13:25→20:14)
[2018-11-15] MEDS: Aspirin 81 mg Enteric Coated Tablet PO SCH (13:25)
[2018-11-15] MEDS: Docusate 100 MG CAP PO SCH ×2 (13:26→20:15)
[2018-11-15] MEDS: Carvedilol 6.25 MG TAB PO SCH ×2 (13:26→20:13)
[2018-11-15] MEDS: Escitalopram Oxalate 20 mg Tablet PO SCH (13:26)
[2018-11-15] MEDS: Fluticasone Propionate Nasal Spray 16 gm Bottle NASAL SCH (13:27)
[2018-11-15] MEDS: Naproxen 500 MG TAB PO SCH ×2 (13:29→20:14)
[2018-11-15] MEDS: Folic Acid/Vit B Comp W-C PO SCH (13:29)
[2018-11-15] MEDS: Ondansetron ODT 4 MG TAB PO PRN (15:29)
[2018-11-15] MEDS: Polyethylene Glycol 3350 17 GM Packet PO SCH (17:48)
[2018-11-15] MEDS: clonazePAM 0.5 MG TAB PO PRN (20:13)
[2018-11-15] MEDS: Cyclobenzaprine 10 MG TAB PO PRN (20:14)
[2018-11-15] MEDS: Loratadine 10 MG TAB PO SCH (20:14)
[2018-11-15] MEDS: Pravastatin Sodium 20 MG TAB PO SCH (20:15)
[2018-11-16] MEDS: Escitalopram Oxalate 20 mg Tablet PO SCH (07:59)
[2018-11-16] MEDS: Naproxen 500 MG TAB PO SCH ×2 (07:59→20:14)
[2018-11-16] MEDS: Aspirin 81 mg Enteric Coated Tablet PO SCH (07:59)
[2018-11-16] MEDS: Docusate 100 MG CAP PO SCH ×2 (07:59→20:12)
[2018-11-16] MEDS: Sucralfate 1 GM TAB PO SCH ×4 (07:59→20:12)
[2018-11-16] MEDS: Calcium Acetate 667 MG CAP PO SCH ×3 (08:00→17:20)
[2018-11-16] MEDS: Acetaminophen 500 MG TAB PO PRN ×2 (08:00→20:13)
[2018-11-16] MEDS: buPROPion HCl 100 MG TAB PO SCH ×2 (08:00→20:14)
[2018-11-16] MEDS: Cyclobenzaprine 10 MG TAB PO PRN ×2 (08:00→20:13)
[2018-11-16] MEDS: Carvedilol 6.25 MG TAB PO SCH (08:00)
[2018-11-16] MEDS: Folic Acid/Vit B Comp W-C PO SCH (08:01)
[2018-11-16] MEDS: Fluticasone Propionate Nasal Spray 16 gm Bottle NASAL SCH (08:01)
[2018-11-16] MEDS: traMADol HCl 50 MG TAB PO PRN ×2 (08:02→21:44)
--- NOTE | 2018-11-16 13:15 | PRG ---
DATE OF SERVICE: 11/16/2018 SUBJECTIVE: Ms. Alarcon is doing better per the patient. She denies any concerns or questions. Discussed with therapy and she is standby assist. They state that ideally she should have somebody with her 24/7, but otherwise just being mobile with her wheelchair and having home health with home PT, OT. They are okay with her going home. Informed the patient and she says she has to make some arrangements. I advised her that I will have the paperwork done on this side and then whenever arrangements have been made, I will also contact case management that she should be good to go. She has done with her antibiotics. She denies any questions or concerns. No family at bedside. OBJECTIVE: VITAL SIGNS: The patient is afebrile. Heart rate 80, respirations 20, oxygen saturation 97% on room air, and blood pressure 141/57. CARDIOVASCULAR SYSTEM: S1 and S2 plus. RESPIRATORY SYSTEM: Normal vesicular breath sounds. ABDOMEN: Soft and nontender. Bowel sounds heard in all quadrants. EXTREMITIES: Without cyanosis or clubbing. Right knee incision area with dressing. CENTRAL NERVOUS SYSTEM: AAO x3. Cranial nerves 2 through 12 are intact. Improving deconditioning. LABORATORY VALUES: Not done at hemodialysis. IMPRESSION: 1. Resolved right knee infected hardware resulting in removal of hardware and placement of wound VAC, which subsequently has been removed. 2. End-stage renal disease, on hemodialysis. 3. Coronary artery disease. 4. Hypertension. 5. Dyslipidemia. 6. Depression and anxiety. PLAN: 1. Continue current medications. 2. Consult Case Management to arrange discharge. 3. Complete discharge paperwork. 4. Heart healthy diet. 5. Orthopedic precautions. 6. DVT and stress ulcer prophylaxis. 7. Outpatient followup with PCP. 8. Discussed with the patient and nursing in detail. All questions answered. Job ID: [id number]
[2018-11-16] MEDS: Polyethylene Glycol 3350 17 GM Packet PO SCH (17:20)
[2018-11-16] MEDS: Pravastatin Sodium 20 MG TAB PO SCH (20:12)
[2018-11-16] MEDS: clonazePAM 0.5 MG TAB PO PRN (20:12)
[2018-11-16] MEDS: Loratadine 10 MG TAB PO SCH (20:14)
[2018-11-16] MEDS: Temazepam 15 MG CAP PO PRN (21:46)
[2018-11-17] MEDS: traMADol HCl 50 MG TAB PO PRN ×3 (07:47→21:17)
[2018-11-17] MEDS: Acetaminophen 500 MG TAB PO PRN ×2 (07:48→21:16)
[2018-11-17] MEDS: Sucralfate 1 GM TAB PO SCH ×4 (07:48→21:16)
[2018-11-17] MEDS: Naproxen 500 MG TAB PO SCH ×2 (07:53→21:16)
[2018-11-17] MEDS: Fluticasone Propionate Nasal Spray 16 gm Bottle NASAL SCH (07:53)
[2018-11-17] MEDS: Calcium Acetate 667 MG CAP PO SCH ×2 (14:21→18:14)
[2018-11-17] MEDS: Carvedilol 6.25 MG TAB PO SCH ×2 (14:51→21:16)
[2018-11-17] MEDS: Escitalopram Oxalate 20 mg Tablet PO SCH (14:51)
[2018-11-17] MEDS: Aspirin 81 mg Enteric Coated Tablet PO SCH (14:51)
[2018-11-17] MEDS: Docusate 100 MG CAP PO SCH ×2 (14:51→21:16)
[2018-11-17] MEDS: buPROPion HCl 100 MG TAB PO SCH ×2 (14:52→21:17)
[2018-11-17] MEDS: Folic Acid/Vit B Comp W-C PO SCH (14:52)
[2018-11-17] MEDS: Polyethylene Glycol 3350 17 GM Packet PO SCH (18:15)
[2018-11-17] MEDS: Pravastatin Sodium 20 MG TAB PO SCH (21:16)
[2018-11-17] MEDS: Cyclobenzaprine 10 MG TAB PO PRN (21:16)
[2018-11-17] MEDS: Temazepam 15 MG CAP PO PRN (21:16)
[2018-11-17] MEDS: Loratadine 10 MG TAB PO SCH (21:17)
[2018-11-18] MEDS: Calcium Acetate 667 MG CAP PO SCH ×2 (08:05→12:06)
[2018-11-18] MEDS: Sucralfate 1 GM TAB PO SCH ×2 (08:05→12:06)
[2018-11-18 08:14] VITALS: BP 114/54; TEMP 97.1
[2018-11-18] MEDS: Carvedilol 6.25 MG TAB PO SCH (09:20)
[2018-11-18] MEDS: buPROPion HCl 100 MG TAB PO SCH (09:20)
[2018-11-18] MEDS: Naproxen 500 MG TAB PO SCH (09:20)
[2018-11-18] MEDS: Aspirin 81 mg Enteric Coated Tablet PO SCH (09:20)
[2018-11-18] MEDS: Docusate 100 MG CAP PO SCH (09:20)
[2018-11-18] MEDS: Fluticasone Propionate Nasal Spray 16 gm Bottle NASAL SCH (09:21)
[2018-11-18] MEDS: Escitalopram Oxalate 20 mg Tablet PO SCH (09:22)
[2018-11-18] MEDS: Folic Acid/Vit B Comp W-C PO SCH (09:22)
== END 2018-11-18 15:42 | disposition home health service (06) | DRG 559 ==
LOC: NAV ACUTE 16:38
PROVIDERS: ADMIT Internal Medicine; ATTEND Internal Medicine
DX: T84.620A Infection and inflammatory reaction due to internal fixation device of right femur, initial encounter (principal); N18.6 End stage renal disease; E87.1 Hypo-osmolality and hyponatremia; I12.0 Hypertensive chronic kidney disease with stage 5 chronic kidney disease or end stage renal disease; I25.10 Atherosclerotic heart disease of native coronary artery without angina pectoris; E78.5 Hyperlipidemia, unspecified; F32.9 Major depressive disorder, single episode, unspecified; F41.9 Anxiety disorder, unspecified; D63.1 Anemia in chronic kidney disease; K21.9 Gastro-esophageal reflux disease without esophagitis; M81.0 Age-related osteoporosis without current pathological fracture; R53.81 Other malaise; J30.9 Allergic rhinitis, unspecified; M62.838 Other muscle spasm; B95.62 Methicillin resistant Staphylococcus aureus infection as the cause of diseases classified elsewhere; K59.09 Other constipation; M24.50 Contracture, unspecified joint; K29.70 Gastritis, unspecified, without bleeding; Z85.3 Personal history of malignant neoplasm of breast; Z99.2 Dependence on renal dialysis; Z95.1 Presence of aortocoronary bypass graft; Z90.11 Acquired absence of right breast and nipple; Z90.711 Acquired absence of uterus with remaining cervical stump; Z93.2 Ileostomy status; Z88.8 Allergy status to other drugs, medicaments and biological substances; Y83.1 Surgical operation with implant of artificial internal device as the cause of abnormal reaction of the patient, or of later complication, without mention of misadventure at the time of the procedure
CPT/HCPCS: 80053; 82274; 87070; 87205; J1644; Q0162

== ENCOUNTER 2018-12-17 17:00 | Inpatient (IN) | payer MEDICARE ==
[2018-12-17] MEDS ORDERED: Senokot S 8.6-50 MG TAB PO PRN (19:02)
[2018-12-17] MEDS ORDERED: Vancomycin HCl 750 MG VIAL IVPB SCH (19:15)
[2018-12-17] MEDS: Temazepam 15 MG CAP PO PRN (21:12)
[2018-12-17] MEDS: Loratadine 10 MG TAB PO SCH (21:13)
[2018-12-17] MEDS: buPROPion HCl 100 MG TAB PO SCH (21:13)
[2018-12-17] MEDS: Pravastatin Sodium 20 MG TAB PO SCH (21:13)
[2018-12-17] MEDS: Carvedilol 25 MG TAB PO SCH (21:13)
[2018-12-17] MEDS: Docusate 100 MG CAP PO SCH (21:14)
[2018-12-17] MEDS: HYDROcodone/Acetaminophen 7.5/325 mg Tablet PO PRN (21:16)
[2018-12-17] MEDS: Cyclobenzaprine 10 MG TAB PO PRN (21:59)
--- NOTE | 2018-12-18 01:26 | HP ---
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 She also has had significant osteoporosis, secondary to her renal osteodystrophy and has suffered a fracture of her right distal femur as well as right hip and has undergone a fixation plate in the distal femur as well as a bipolar hemiarthroplasty. She has also had a left knee replacement with subsequent infection, requiring washout, antimicrobial therapy. Finally, she has also had MRSA of her left AV fistula in 2018. She was found at that time to have a draining fistula from right femur, which was treated with meropenem and vancomycin until the end of October, but then at that time was not begun on suppressive therapy secondary to lack of followup, and she presented to [facility] with nausea and hematemesis. She was found to have erosive esophagitis with no other finding, but her recurrent MRSA infection and fistula drainage were then addressed, and she subsequently was found to have an abscess in the distal femur nguyen, requiring removal of hip and the nguyen. She is now on vancomycin at dialysis until the end of December, then will see Dr. Mckeon for suppressive therapy. She lives alone and has been transferring from wheelchair to bed for the last year secondary to inability to bear weight on her right femur and feels that she could return home when she is stronger. PAST MEDICAL HISTORY: Remarkable for the above-mentioned end-stage renal disease, on hemodialysis; coronary artery disease, status post two stents; multiple episodes of MRSA bacteremia; breast cancer; and dyslipidemia. 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 ALLERGIES: SHE IS ALLERGIC TO ATORVASTATIN, CEFUROXIME, NITROFURANTOIN, MEPERIDINE. FAMILY MEDICAL HISTORY: Parkinson disease. SOCIAL HISTORY: She is nonsmoker, lives alone, is . REVIEW OF SYSTEMS: HEENT: She denies any headaches, dizziness, change in vision or hearing, hoarseness, or dysphagia. PULMONARY: She denies cough, sputum production, pneumonia, asthma, tuberculosis. CARDIOVASCULAR: She denies chest pain, orthopnea, paroxysmal nocturnal dyspnea, or edema. GASTROINTESTINAL: She denies nausea, vomiting, diarrhea, constipation, or abdominal pain. GENITOURINARY: She does put out some urine from the ileostomy with no dysuria. MUSCULOSKELETAL: She has pain in her right hip with any weightbearing movement, but not at rest. She has no pain in her left knee. PHYSICAL EXAMINATION: GENERAL: The patient is a thin white female, appears in no acute distress. Alert, oriented, and lucid. VITAL SIGNS: Showed to have a temperature 97.7, pulse 85, respirations 18, O2 sats 98% on room air, and blood pressure 147/69. HEENT: Pupils are equal, round, and reactive to light and accommodation. Sclerae anicteric. Conjunctivae pale. Oral mucous membranes well hydrated. NECK: Supple. No nodes or masses. JVP is not elevated. LUNGS: Clear. CARDIAC: Regular rhythm. There is a 2/6 systolic ejection murmur at the second intercostal space, left sternal border. ABDOMEN: Soft and nontender. Ileostomy in place. No masses or organomegaly. SKIN/EXTREMITIES: Showed dressing over right lateral hip with minimal tenderness and erythema. No drainage. LABORATORY DATA: Laboratory is pending. Most previous laboratory done yesterday showed a white count of 5700, hematocrit 28, and hemoglobin 9. Sodium 138, potassium 4.1, chloride 102, bicarb 28, BUN 21, creatinine 2.50. Vancomycin random level 10.0. ASSESSMENT: 1. 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 She is now nonweightbearing on the right hip and is here for physical therapy to facilitate safe transfers. 2. She is on IV vancomycin at dialysis until the end of December and then to follow up with Dr. Mckeon. 3. End-stage renal disease, on dialysis Thursday, Thursday, Thursday, being followed by Dr. Kiran. 4. History of recent gastrointestinal bleed, secondary to erosive esophagitis, on Protonix, and we will continue and monitor closely. 5. Coronary artery disease, asymptomatic. 6. History of breast cancer, status post right mastectomy. No recurrence. Job ID: [id number]
[2018-12-18] MEDS: Aspirin 81 mg Enteric Coated Tablet PO SCH (08:27)
[2018-12-18] MEDS: Calcium Acetate 667 MG CAP PO SCH ×3 (08:27→17:17)
[2018-12-18] MEDS: buPROPion HCl 100 MG TAB PO SCH ×2 (08:28→20:58)
[2018-12-18] MEDS: Carvedilol 25 MG TAB PO SCH ×2 (08:28→20:58)
[2018-12-18] MEDS: Fluticasone Propionate Nasal Spray 16 gm Bottle NASAL SCH (08:29)
[2018-12-18] MEDS: Escitalopram Oxalate 20 mg Tablet PO SCH (08:29)
[2018-12-18] MEDS: Docusate 100 MG CAP PO SCH ×2 (08:29→20:57)
[2018-12-18] MEDS: Folic Acid/Vit B Comp W-C PO SCH (08:30)
[2018-12-18] MEDS: HYDROcodone/Acetaminophen 7.5/325 mg Tablet PO PRN ×3 (08:30→20:58)
[2018-12-18] MEDS ORDERED: [UNRECOGNIZED DRUG - OTHER] PO SCH (09:00)
[2018-12-18] MEDS ORDERED: FOLIC ACID PO SCH (09:00)
[2018-12-18] MEDS ORDERED: B COMPLEX PO SCH (09:00)
[2018-12-18] MEDS: Polyethylene Glycol 3350 17 GM Packet PO SCH (17:17)
[2018-12-18] MEDS: Pravastatin Sodium 20 MG TAB PO SCH (20:56)
[2018-12-18] MEDS: Loratadine 10 MG TAB PO SCH (20:56)
[2018-12-18] MEDS: Temazepam 15 MG CAP PO PRN (20:58)
[2018-12-18] MEDS: Cyclobenzaprine 10 MG TAB PO PRN (20:58)
--- NOTE | 2018-12-18 22:13 | PRG ---
DATE OF SERVICE: 12/18/2018 SUBJECTIVE: The patient feels well, lying in bed, no complaints, who has admitted to inpatient rehab for continued IV antibiotics with vancomycin at dialysis being given per instructions of Dr. Mckeon until the end of December. She is severely deconditioned and is awaiting further PT and OT. She has had a history of recent GI bleed from esophagitis, but no recurrence. OBJECTIVE: VITAL SIGNS: Shows her to have blood pressure is 181/76, temperature is 98, pulse 80, respirations 16, O2 sats 96% on room air. ABDOMEN: Soft, nontender with no masses or organomegaly. SKIN/EXTREMITIES: Right leg draining fistula. Wound clean, status post removal of hardware. NEUROLOGICAL: No focal findings. LABORATORY DATA: The patient's labs at dialysis, hematocrit 28, hemoglobin 9.2. Sodium 138, potassium 4.1, chloride 102, bicarb 28, BUN 21, creatinine 2.5. ASSESSMENT: 1. Resolving infection of hardware, right prosthetic hip. 2. Stable end-stage renal disease, on hemodialysis. 3. Severe deconditioning. PLAN: 1. Continue PT/OT. 2. Continue IV vancomycin at hemodialysis. 3. Continue hemodialysis 3 times a week. Job ID: [id number]
[2018-12-19] MEDS: Calcium Acetate 667 MG CAP PO SCH ×3 (08:22→16:05)
[2018-12-19] MEDS: Docusate 100 MG CAP PO SCH ×2 (08:23→20:46)
[2018-12-19] MEDS: Fluticasone Propionate Nasal Spray 16 gm Bottle NASAL SCH (08:23)
[2018-12-19] MEDS: Escitalopram Oxalate 20 mg Tablet PO SCH (08:23)
[2018-12-19] MEDS: buPROPion HCl 100 MG TAB PO SCH ×2 (08:23→20:47)
[2018-12-19] MEDS: Carvedilol 25 MG TAB PO SCH ×2 (08:23→20:47)
[2018-12-19] MEDS: Aspirin 81 mg Enteric Coated Tablet PO SCH (08:23)
[2018-12-19] MEDS: Folic Acid/Vit B Comp W-C PO SCH (08:24)
[2018-12-19] MEDS: HYDROcodone/Acetaminophen 7.5/325 mg Tablet PO PRN ×3 (08:25→20:47)
[2018-12-19] MEDS: Polyethylene Glycol 3350 17 GM Packet PO SCH (16:05)
[2018-12-19] MEDS: Pravastatin Sodium 20 MG TAB PO SCH (20:47)
[2018-12-19] MEDS: Temazepam 15 MG CAP PO PRN (20:47)
[2018-12-19] MEDS: Loratadine 10 MG TAB PO SCH (20:47)
[2018-12-19] MEDS: Cyclobenzaprine 10 MG TAB PO PRN (20:47)
[2018-12-20] MEDS: HYDROcodone/Acetaminophen 7.5/325 mg Tablet PO PRN ×3 (07:57→14:39)
--- NOTE | 2018-12-20 09:38 | PRG ---
DATE OF SERVICE: 12/19/2018 SUBJECTIVE: The patient lying in bed, reading a book, feels well, with no complaints. She is in the hospital for IV antibiotics with vancomycin and dialysis from a right prosthetic hip wound infection status post removal of the hardware and continuation of the antibiotics until the end of December. OBJECTIVE: VITAL SIGNS: Shows temperature is 98.3, pulse 80, respirations 18, O2 saturations 95% on room air, and blood pressure 139/63. LUNGS: Clear. CARDIAC: Showed regular rhythm. ABDOMEN: Soft and nontender. ASSESSMENT: 1. 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 2. Stable end-stage renal disease on hemodialysis 3 times weekly. 3. Severe deconditioning and need of physical therapy. PLAN: 1. Continue hemodialysis 3 times a week. 2. Continue IV vancomycin and hemodialysis. 3. Continue PT and OT. Job ID: [id number]
[2018-12-20] MEDS: Aspirin 81 mg Enteric Coated Tablet PO SCH (13:33)
[2018-12-20] MEDS: Calcium Acetate 667 MG CAP PO SCH ×2 (13:33→17:46)
[2018-12-20] MEDS: buPROPion HCl 100 MG TAB PO SCH ×2 (13:33→20:30)
[2018-12-20] MEDS: Fluticasone Propionate Nasal Spray 16 gm Bottle NASAL SCH (13:34)
[2018-12-20] MEDS: Folic Acid/Vit B Comp W-C PO SCH (13:34)
[2018-12-20] MEDS: Escitalopram Oxalate 20 mg Tablet PO SCH (13:34)
[2018-12-20] MEDS: Carvedilol 25 MG TAB PO SCH ×2 (13:34→20:30)
[2018-12-20] MEDS: Docusate 100 MG CAP PO SCH ×2 (13:34→20:30)
[2018-12-20] MEDS: Polyethylene Glycol 3350 17 GM Packet PO SCH (17:46)
[2018-12-20] MEDS: Pravastatin Sodium 20 MG TAB PO SCH (20:29)
[2018-12-20] MEDS: Loratadine 10 MG TAB PO SCH (20:29)
[2018-12-20] MEDS: Temazepam 15 MG CAP PO PRN (22:03)
[2018-12-20] MEDS: Cyclobenzaprine 10 MG TAB PO PRN (22:49)
[2018-12-21] MEDS: Fluticasone Propionate Nasal Spray 16 gm Bottle NASAL SCH (08:42)
[2018-12-21] MEDS: Folic Acid/Vit B Comp W-C PO SCH (08:43)
[2018-12-21] MEDS: buPROPion HCl 100 MG TAB PO SCH ×2 (08:43→21:01)
[2018-12-21] MEDS: Docusate 100 MG CAP PO SCH ×2 (08:43→21:01)
[2018-12-21] MEDS: Aspirin 81 mg Enteric Coated Tablet PO SCH (08:43)
[2018-12-21] MEDS: Calcium Acetate 667 MG CAP PO SCH ×3 (08:43→17:57)
[2018-12-21] MEDS: Escitalopram Oxalate 20 mg Tablet PO SCH (08:44)
[2018-12-21] MEDS: Carvedilol 25 MG TAB PO SCH ×2 (08:44→21:01)
[2018-12-21] MEDS: HYDROcodone/Acetaminophen 7.5/325 mg Tablet PO PRN ×3 (08:46→21:03)
[2018-12-21] MEDS: Polyethylene Glycol 3350 17 GM Packet PO SCH (17:58)
--- NOTE | 2018-12-21 18:19 | PRG ---
DATE OF SERVICE: 12/20/2018 SUBJECTIVE: The patient has had dialysis now, returned with no difficulty, ready to do more therapy. Apparently, however, did not get her blood drawn. OBJECTIVE: VITAL SIGNS: Show temperature 98.7, pulse 87, respirations 18, O2 sats 96% on room air, blood pressure 138/66. GENERAL: Physical Therapy states that she is cooperating with therapy, but still has not met any goals and is very weak. LUNGS: Clear. CARDIAC: Showed regular rhythm. ABDOMEN: Soft and nontender. MUSCULOSKELETAL: Right hip shows healing lateral incision. ASSESSMENT: 1. Resolving methicillin-resistant Staph infection, right prosthetic hip, status post removal of hardware, now on IV vancomycin at dialysis until the end of December. 2. Stable end-stage renal disease, on hemodialysis 3 times weekly. 3. Severe deconditioning. PLAN: 1. Continue PT/OT. 2. Stress need to obtain laboratories at dialysis tomorrow. 3. Continue dialysis three times weekly. 4. Continue IV vancomycin at dialysis. Job ID: [id number]
[2018-12-21] MEDS: Cyclobenzaprine 10 MG TAB PO PRN (21:02)
[2018-12-21] MEDS: Pravastatin Sodium 20 MG TAB PO SCH (21:02)
[2018-12-21] MEDS: Loratadine 10 MG TAB PO SCH (21:02)
[2018-12-21] MEDS: Temazepam 15 MG CAP PO PRN (21:04)
--- NOTE | 2018-12-22 07:10 | PRG ---
DATE OF SERVICE: 12/21/2018 SUBJECTIVE: The patient is very cheerful, in good mood after having dialysis and therapy today. States she feels she is getting stronger, but is still unable to bear any weight on her right leg, but is hopping with her left leg 40 feet with a walker. OBJECTIVE: Shows right leg is healed well with no drainage. VITAL SIGNS: Show a blood pressure of 119/57, temperature 97, pulse 82, respirations 20, O2 saturations 96% on room air. LUNGS: Clear. CARDIAC: Regular rhythm. ABDOMEN: Soft and nontender. ASSESSMENT: 1. Resolving right prosthetic hip infection with methicillin-resistant Staphylococcus aureus, status post removal of hardware, now on vancomycin at dialysis until the end of December. 2. Stable end-stage renal disease, on hemodialysis 3 times weekly. 3. Severe deconditioning, improving daily. 4. Malnutrition, improving daily. PLAN: 1. Continue PT, OT. 2. Continue dialysis 3 times weekly. 3. Obtain results of laboratories done at dialysis yesterday. 4. Continue IV vancomycin at dialysis. Job ID: [id number]
[2018-12-22] MEDS: HYDROcodone/Acetaminophen 7.5/325 mg Tablet PO PRN ×3 (07:18→20:59)
[2018-12-22] MEDS: Fluticasone Propionate Nasal Spray 16 gm Bottle NASAL SCH (07:30)
[2018-12-22] MEDS ORDERED: Epoetin (ESRD) 10,000 UNITS/ML VIAL SC SCH (09:00)
[2018-12-22] MEDS: Carvedilol 25 MG TAB PO SCH ×2 (09:14→20:57)
[2018-12-22] MEDS: buPROPion HCl 100 MG TAB PO SCH ×2 (09:14→20:57)
[2018-12-22] MEDS: Aspirin 81 mg Enteric Coated Tablet PO SCH (09:14)
[2018-12-22] MEDS: Docusate 100 MG CAP PO SCH ×2 (09:14→20:58)
[2018-12-22] MEDS: Escitalopram Oxalate 20 mg Tablet PO SCH (09:15)
[2018-12-22] MEDS: Folic Acid/Vit B Comp W-C PO SCH (09:15)
[2018-12-22] MEDS: Calcium Acetate 667 MG CAP PO SCH ×3 (09:15→17:23)
[2018-12-22] MEDS: Polyethylene Glycol 3350 17 GM Packet PO SCH (17:24)
[2018-12-22] MEDS: Loratadine 10 MG TAB PO SCH (20:58)
[2018-12-22] MEDS: Pravastatin Sodium 20 MG TAB PO SCH (20:58)
[2018-12-22] MEDS: Temazepam 15 MG CAP PO PRN (20:58)
[2018-12-22] MEDS: Cyclobenzaprine 10 MG TAB PO PRN (20:58)
--- NOTE | 2018-12-22 21:51 | PRG ---
DATE OF SERVICE: 12/22/2018 SUBJECTIVE: The patient is lying in the bed, resting well after dialysis and therapy today. Feels stronger. States she did hop 26 times a day on her good leg and did tolerate dialysis with no difficulty. Having no nausea, vomiting, or weakness. OBJECTIVE: VITAL SIGNS: Shows temperature is 98.2, pulse 83, respirations 18, O2 sats 97% on room air, blood pressure 130/62. LUNGS: Clear. CARDIAC: Regular rhythm. ABDOMEN: Soft and nontender. SKIN/EXTREMITIES: Healing right lateral hip incision, status post removal of right prosthetic hip. ASSESSMENT: 1. Resolving right prosthetic hip infection with methicillin-resistant Staphylococcus aureus, status post removal of hardware, now on vancomycin at dialysis 3 times a week until the end of November. 2. Stable end-stage renal disease, on dialysis 3 times weekly. 3. Severe deconditioning, improving daily. 4. Malnutrition, improving daily. PLAN: 1. Continue PT/OT. 2. Continue dialysis 3 times weekly. 3. Continue to request results of laboratory yesterday and continue IV vancomycin at dialysis. Job ID: [id number]
[2018-12-23] MEDS: Aspirin 81 mg Enteric Coated Tablet PO SCH (08:32)
[2018-12-23] MEDS: Carvedilol 25 MG TAB PO SCH ×2 (08:32→21:07)
[2018-12-23] MEDS: Calcium Acetate 667 MG CAP PO SCH ×3 (08:32→17:08)
[2018-12-23] MEDS: buPROPion HCl 100 MG TAB PO SCH ×2 (08:32→21:06)
[2018-12-23] MEDS: Docusate 100 MG CAP PO SCH ×2 (08:32→21:06)
[2018-12-23] MEDS: Fluticasone Propionate Nasal Spray 16 gm Bottle NASAL SCH (08:34)
[2018-12-23] MEDS: Escitalopram Oxalate 20 mg Tablet PO SCH (08:34)
[2018-12-23] MEDS: Folic Acid/Vit B Comp W-C PO SCH (08:34)
[2018-12-23] MEDS: HYDROcodone/Acetaminophen 7.5/325 mg Tablet PO PRN ×3 (08:36→21:08)
[2018-12-23] MEDS ORDERED: Epoetin (ESRD) 10,000 UNITS/ML VIAL SC SCH (09:00)
[2018-12-23] MEDS: Polyethylene Glycol 3350 17 GM Packet PO SCH (17:09)
[2018-12-23] MEDS: Loratadine 10 MG TAB PO SCH (21:05)
[2018-12-23] MEDS: Pravastatin Sodium 20 MG TAB PO SCH (21:06)
[2018-12-23] MEDS: Temazepam 15 MG CAP PO PRN (21:07)
[2018-12-23] MEDS: Cyclobenzaprine 10 MG TAB PO PRN (21:07)
[2018-12-24] MEDS: Fluticasone Propionate Nasal Spray 16 gm Bottle NASAL SCH (07:58)
[2018-12-24] MEDS: Calcium Acetate 667 MG CAP PO SCH ×3 (07:59→17:10)
[2018-12-24] MEDS: Folic Acid/Vit B Comp W-C PO SCH (07:59)
[2018-12-24] MEDS: HYDROcodone/Acetaminophen 7.5/325 mg Tablet PO PRN ×3 (07:59→21:10)
--- NOTE | 2018-12-24 09:25 | PRG ---
DATE OF SERVICE: 12/23/2018 SUBJECTIVE: The patient feels well, lying in bed, resting. Has done therapy today, hopped 56 steps with rest in between with therapy today, and is ready for dialysis tomorrow. OBJECTIVE: VITAL SIGNS: Temperature is 99, pulse 77, respirations 20, O2 saturations 98% on room air, blood pressure 144/64. LUNGS: Clear. CARDIAC: Showed regular rhythm. ABDOMEN: Soft and nontender. EXTREMITIES: Right leg shows healing incision, status post removal of hardware. LABORATORY DATA: Laboratory results still not back, so we will request them to be done again and dialysis tomorrow. PLAN: 1. Continue PT/OT. 2. Continue dialysis. 3. Obtain results of laboratory, repeat tomorrow. 4. Continue IV vancomycin at dialysis. Job ID: [id number]
[2018-12-24] MEDS: Docusate 100 MG CAP PO SCH ×2 (15:14→21:06)
[2018-12-24] MEDS: Aspirin 81 mg Enteric Coated Tablet PO SCH (15:14)
[2018-12-24] MEDS: Carvedilol 25 MG TAB PO SCH ×2 (15:14→21:07)
[2018-12-24] MEDS: buPROPion HCl 100 MG TAB PO SCH ×2 (15:15→21:08)
[2018-12-24] MEDS: Escitalopram Oxalate 20 mg Tablet PO SCH (15:15)
[2018-12-24 16:19] LABS: ALT (SGPT) 14 U/L (8-55); AST (SGOT) 19 U/L (5-34); Albumin 3.4 g/dL (3.4-4.8); Alkaline Phosphatase 342 U/L (40-150); Anion Gap 16 mmol/L (10-20); BUN (Urea Nitrogen) 16 mg/dL (9.8-20.1); Bilirubin, Total 0.3 mg/dL (0.2-1.2); CRP (Inflammatory) 0.69 mg/dL (= or < 0.5); Calc. Creatinine Clearance 27 mL/min (70-130); Calcium 8.8 mg/dL (7.8-10.44); Carbon Dioxide 29 mmol/L (23-31); Chloride 99 mmol/L (98-107); Estimated GFR-MDRD 28; Globulin 3.3 g/dL (2.4-3.5); Glucose 123 mg/dL (80-115); Potassium 3.6 mmol/L (3.5-5.1); Protein, Total 6.7 g/dL (6.0-8.3); Sodium 140 mmol/L (136-145)
[2018-12-24] MEDS: Polyethylene Glycol 3350 17 GM Packet PO SCH (17:10)
[2018-12-24 17:25] LABS: #Basophils 0.1 thou/uL (0.0-0.2); #Eosinphils 1.2 thou/uL (0.0-0.7); #Lymphocytes 1.6 thou/uL (1.20-3.40); #Monocytes 0.4 thou/uL (0.11-0.59); %Basophils 1.5 % (0.0-1.0); %Eosinophils 15.8 % (0.0-10.0); %Monocytes 5.2 % (0.0-10.0); %Neutrophils 55.6 % (42.0-75.0); Hemoglobin 9.3 g/dL (12.0-16.0); Mean Corpuscular HGB CONC 31.1 g/dL (32.0-36.0); Mean Corpuscular Hemoglobin 29.4 pg (27.0-31.0); Mean Corpuscular Volume 94.7 fL (78.0-98.0); Mean Platelet Volume 6.7 fL (7.4-10.4); Platelet Count 408 thou/uL (130-400); RBC Distribution Width 15.8 % (11.5-14.5); Red Blood Cell (RBC) Count 3.15 mill/uL (4.20-5.40); White Blood Cell (WBC) Count 7.3 thou/uL (4.8-10.8)
[2018-12-24] MEDS: Pravastatin Sodium 20 MG TAB PO SCH (21:07)
[2018-12-24] MEDS: Loratadine 10 MG TAB PO SCH (21:08)
[2018-12-24] MEDS: Cyclobenzaprine 10 MG TAB PO PRN (21:08)
[2018-12-24] MEDS: Temazepam 15 MG CAP PO PRN (21:10)
[2018-12-25] MEDS: Calcium Acetate 667 MG CAP PO SCH ×3 (08:40→16:25)
[2018-12-25] MEDS: Aspirin 81 mg Enteric Coated Tablet PO SCH (08:42)
[2018-12-25] MEDS: Escitalopram Oxalate 20 mg Tablet PO SCH (08:42)
[2018-12-25] MEDS: Docusate 100 MG CAP PO SCH ×2 (08:42→21:30)
[2018-12-25] MEDS: buPROPion HCl 100 MG TAB PO SCH ×2 (08:42→21:30)
[2018-12-25] MEDS: Carvedilol 25 MG TAB PO SCH ×2 (08:43→21:31)
[2018-12-25] MEDS: Fluticasone Propionate Nasal Spray 16 gm Bottle NASAL SCH (08:43)
[2018-12-25] MEDS: Folic Acid/Vit B Comp W-C PO SCH (08:48)
[2018-12-25] MEDS: Acetaminophen 500 MG TAB PO PRN (08:54)
--- NOTE | 2018-12-25 09:27 | PRG ---
DATE OF SERVICE: 12/25/2018 SUBJECTIVE: Ms. Alarcon is a very pleasant 68-year-old white female with end-stage renal disease secondary to her ileal conduit and dialysis. She has osteoporosis, renal osteodystrophy, and had a fracture of the right distal femur, which subsequently became infected. Her hardware was removed and she was started on IV antibiotics. She did well and went home, but did not have followup and did not get her suppressive therapy. She presented to [facility] with nausea and vomiting. She was found to have erosive esophagitis, but also recurrent MRSA and fistula. She was stabilized, had abscessed in her right femur, and therefore her femoral nguyen and hip were removed. She is now on vancomycin after each dialysis until the end of December followed by Dr. Mckeon. The patient states she is doing well except she has no nausea and would like something for that. I have ordered some ondansetron. OBJECTIVE: VITAL SIGNS: Today revealed blood pressure 143/67, pulse 78 to 84, respirations 18 to 21, O2 saturation 98% to 100%, and T-max 98.5. GENERAL: This is a well-developed, well-nourished, very pleasant white female, in no apparent distress at this time. HEENT: Reveals normocephalic and nontraumatic cranium. Pupils equal, round, and reactive. Extraocular movements are intact. Nose and throat are slightly dry. NECK: Supple without masses, nodes, or bruits. CHEST: Clear to auscultation. No rales, rhonchi, or wheezes are heard. HEART: Reveals a regular rate and rhythm without murmurs, gallops, or rubs. ABDOMEN: Soft and nontender without organomegaly. Normal bowel sounds are noted. No rebound or guarding is noted. : Deferred. EXTREMITIES: Revealed no clubbing, cyanosis, or edema. ASSESSMENT: 1. Recurrent methicillin-resistant Staphylococcus aureus. 2. Infected right hip prosthesis. 3. End-stage renal disease, on hemodialysis. 4. Recent gastrointestinal bleed secondary to erosive gastritis and esophagitis. 5. Coronary artery disease. 6. History of breast cancer, status post right mastectomy. 7. Generalized weakness. PLAN: 1. The patient will continue on her present antibiotics. 2. The patient will have dialysis on Thursday, Thursday, and Viktor. 3. Continue Protonix. 4. Monitor the patient for cardiovascular symptoms. 5. Continue vancomycin status post each dialysis per Dr. Mckeon' recommendations. 6. Supportive care. Job ID: [id number]
--- NOTE | 2018-12-25 15:46 | PRG ---
DATE OF SERVICE: 12/24/2018 SUBJECTIVE: The patient feels well, cooperating with PT, hopping on her leg with PT, and undergoing dialysis three times weekly with no complications. She has been receiving her vancomycin at dialysis and apparently has drawn her labs there and the results have returned. She has had no nausea, vomiting, or abdominal pain, or shortness of breath. LABORATORY DATA: White count 7300, hematocrit 29, hemoglobin 9.8. Sodium was 140, potassium 3.6, chloride 99, bicarb 29, creatinine 1.79, glucose 123, alkaline phosphatase 342. CRP is 0.69, sedimentation rate is 4. OBJECTIVE: LUNGS: Clear. CARDIAC: Showed regular rhythm. ABDOMEN: Soft and nontender. ASSESSMENT: 1. 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 2. End-stage renal disease, tolerating dialysis well. 3. Deconditioning, improving daily and will continue . PLAN: 1. Determine end date of antibiotics with Infectious Disease, but I think it is until middle of December. 2. Continue PT and OT. 3. Continue hemodialysis 3 times weekly. Job ID: [id number]
[2018-12-25] MEDS: Polyethylene Glycol 3350 17 GM Packet PO SCH (16:25)
[2018-12-25] MEDS: HYDROcodone/Acetaminophen 7.5/325 mg Tablet PO PRN ×2 (16:29→21:26)
[2018-12-25] MEDS: Temazepam 15 MG CAP PO PRN (21:28)
[2018-12-25] MEDS: Pravastatin Sodium 20 MG TAB PO SCH (21:29)
[2018-12-25] MEDS: Loratadine 10 MG TAB PO SCH (21:30)
[2018-12-26] MEDS: Calcium Acetate 667 MG CAP PO SCH ×3 (08:53→16:46)
[2018-12-26] MEDS: Fluticasone Propionate Nasal Spray 16 gm Bottle NASAL SCH (08:55)
[2018-12-26] MEDS: Docusate 100 MG CAP PO SCH ×2 (08:55→21:21)
[2018-12-26] MEDS: buPROPion HCl 100 MG TAB PO SCH ×2 (08:55→21:20)
[2018-12-26] MEDS: Carvedilol 25 MG TAB PO SCH ×2 (08:56→21:21)
[2018-12-26] MEDS: Escitalopram Oxalate 20 mg Tablet PO SCH (08:56)
[2018-12-26] MEDS: Folic Acid/Vit B Comp W-C PO SCH (08:57)
[2018-12-26] MEDS: Aspirin 81 mg Enteric Coated Tablet PO SCH (08:57)
--- NOTE | 2018-12-26 10:23 | PRG ---
DATE OF SERVICE: 12/26/2018 SUBJECTIVE: Ms. Alarcon is a very pleasant 68-year-old white female. She has end-stage renal disease secondary to ileal conduit and is on dialysis. She has renal osteodystrophy, osteoporosis and had a fractured right distal femur which became infected. She had MRSA. The hardware and hip had to be removed and she was started on IV antibiotics. After she went home, she has presented to the ER with nausea and vomiting, and is found to have an erosive esophagitis, but also recurrent MRSA in her fistula. She was stabilized but found to have an abscess in the right femur. Femoral nguyne and hip were removed. She is now on vancomycin after dialysis until the end of December. She is followed by Dr. Mckeon. The patient states she is doing well and has no complaints. She has only one lab work returned, that was done last Thursday. Labs reveal white count 7000, hemoglobin 9.3, hematocrit 29.8, and platelet count 408. Sedimentation rate was 4. Chemistry reveals sodium 140, potassium 3.6, BUN 16, creatinine 1.79. GFR is 28. Sugar was 123. AST was 19, ALT was 14. C-reactive protein was 0.69. OBJECTIVE: VITAL SIGNS: Reveal blood pressure 141/65, pulse 76, respirations 16, O2 saturation 98% to 100% on room air, and T-max is 98.8. GENERAL: This is a well-developed, well-nourished, very pleasant 68-year-old white female, in no apparent distress at this time. HEENT: Reveals normocephalic and nontraumatic cranium. Pupils are equal, round, reactive. Extraocular movements are intact. Nose and throat are moist. NECK: Supple without masses, nodes, or bruits. CHEST: Clear to auscultation. No rales, rhonchi, wheezes, or cough is heard. HEART: Reveals a regular rate and rhythm without murmurs, gallops, rubs. ABDOMEN: Soft and nontender without organomegaly. Normal bowel sounds are noted in all 4 quadrants. No rebound or guarding is noted. : Deferred. EXTREMITIES: Reveal no clubbing, cyanosis, or edema. ASSESSMENT: 1. Recurrent methicillin resistant Staph aureus. 2. Infected right hip prosthesis. 3. End-stage renal disease, on hemodialysis Thursday, Thursday, and Thursday. 4. Recent gastrointestinal bleed secondary to erosive gastritis and erosive esophagitis. 5. Coronary artery disease. 6. History of breast cancer status post mastectomy. 7. Generalized weakness. PLAN: 1. The patient will continue present antibiotics until end december per Dr. Mckeon. 2. The patient will have dialysis Thursday, Thursday, and Thursday. 3. Continue Protonix. 4. Continue to monitor the patient for cardiovascular symptoms. 5. Stress ulcer prophylaxis. 6. Decubitus precautions. 7. DVT prophylaxis per primary service. 8. Supportive care. Job ID: [id number]
[2018-12-26] MEDS: HYDROcodone/Acetaminophen 7.5/325 mg Tablet PO PRN ×2 (12:17→21:22)
[2018-12-26] MEDS: Acetaminophen 500 MG TAB PO PRN (16:47)
[2018-12-26] MEDS: Polyethylene Glycol 3350 17 GM Packet PO SCH (16:48)
[2018-12-26] MEDS: Loratadine 10 MG TAB PO SCH (21:21)
[2018-12-26] MEDS: Pravastatin Sodium 20 MG TAB PO SCH (21:21)
[2018-12-26] MEDS: clonazePAM 0.5 MG TAB PO PRN (21:22)
[2018-12-26] MEDS: Temazepam 15 MG CAP PO PRN (21:23)
[2018-12-27] MEDS: Fluticasone Propionate Nasal Spray 16 gm Bottle NASAL SCH (07:53)
[2018-12-27] MEDS: HYDROcodone/Acetaminophen 7.5/325 mg Tablet PO PRN ×3 (07:54→20:47)
[2018-12-27] MEDS: Calcium Acetate 667 MG CAP PO SCH ×3 (08:55→17:00)
[2018-12-27] MEDS: Docusate 100 MG CAP PO SCH ×2 (08:56→20:46)
[2018-12-27] MEDS: Aspirin 81 mg Enteric Coated Tablet PO SCH (08:56)
[2018-12-27] MEDS: buPROPion HCl 100 MG TAB PO SCH ×2 (08:56→20:45)
[2018-12-27] MEDS: Carvedilol 25 MG TAB PO SCH ×2 (08:56→20:45)
[2018-12-27] MEDS: Escitalopram Oxalate 20 mg Tablet PO SCH (08:57)
[2018-12-27] MEDS: Folic Acid/Vit B Comp W-C PO SCH (08:57)
[2018-12-27] MEDS: Ondansetron ODT 4 MG TAB PO PRN (15:14)
[2018-12-27] MEDS: Polyethylene Glycol 3350 17 GM Packet PO SCH (17:00)
--- NOTE | 2018-12-27 19:07 | PRG ---
DATE OF SERVICE: 12/27/2018 SUBJECTIVE: The patient feels well working with therapy and with occupational therapy and is getting stronger. She is tolerating her dialysis well. No complications, and her laboratories were all normal including inflammatory markers. She is tolerating her vancomycin well to be finished at the end of December. OBJECTIVE: VITAL SIGNS: Showed her to have blood pressure 141/63, pulse 82, and O2 sats 97% on room air. GENERAL: Right hip is healing well with no drainage. ABDOMEN: Soft and nontender. LUNGS: Clear. CARDIAC: Showed regular rhythm. ASSESSMENT: 1. Resolving right hip infection, status post removal of hardware on IV vancomycin for another month, who is working with physical therapy. 2. End-stage renal disease, stable hemodialysis on Thursday, Thursday, and Thursday. 3. Severe deconditioning, improving daily. 4. Recent gastrointestinal bleed secondary to erosive gastritis and esophagitis, resolved. No recurrence. PLAN: 1. Continue PT/OT. 2. Continue hemodialysis 3 times weekly. 3. Continue vancomycin at dialysis. 4. Continue stress ulcer and DVT prophylaxis. Job ID: [id number]
[2018-12-27] MEDS: Pravastatin Sodium 20 MG TAB PO SCH (20:46)
[2018-12-27] MEDS: Loratadine 10 MG TAB PO SCH (20:46)
[2018-12-27] MEDS: clonazePAM 0.5 MG TAB PO PRN (20:46)
[2018-12-27] MEDS: Temazepam 15 MG CAP PO PRN (20:48)
[2018-12-28] MEDS: Carvedilol 25 MG TAB PO SCH ×2 (08:12→20:56)
[2018-12-28] MEDS: Calcium Acetate 667 MG CAP PO SCH ×3 (08:12→17:03)
[2018-12-28] MEDS: Aspirin 81 mg Enteric Coated Tablet PO SCH (08:12)
[2018-12-28] MEDS: buPROPion HCl 100 MG TAB PO SCH ×2 (08:12→20:56)
[2018-12-28] MEDS: Fluticasone Propionate Nasal Spray 16 gm Bottle NASAL SCH (08:13)
[2018-12-28] MEDS: Escitalopram Oxalate 20 mg Tablet PO SCH (08:13)
[2018-12-28] MEDS: Docusate 100 MG CAP PO SCH ×2 (08:13→20:57)
[2018-12-28] MEDS: Folic Acid/Vit B Comp W-C PO SCH (08:14)
[2018-12-28] MEDS: HYDROcodone/Acetaminophen 7.5/325 mg Tablet PO PRN ×2 (08:14→20:58)
--- NOTE | 2018-12-28 14:26 | PRG ---
DATE OF SERVICE: 12/28/2018 SUBJECTIVE: Ms. Alarcon is doing well. She is up in her chair. Denies any complaints. No further episodes of GI bleeding. She is tolerating her therapy and getting stronger. She is working to go home soon. She states that she had to go to the hospital for GI bleed and anemia, and she had an EGD, which showed significant erosive esophagitis, but no active bleeding. She also required 2 units of blood. She was also noted to have a draining fistula from the right hip site, and she was started back on vancomycin. She just finished her vancomycin on December 11. She is getting it with dialysis. CT scan showed some evidence for infection, and she underwent explantation of right hip cemented hemiarthroplasty. She denies any concerns or questions. She is resting comfortably. Pain is controlled. She is tolerating her dialysis. OBJECTIVE: GENERAL: She is afebrile. Heart rate is 72, respirations 20, oxygen saturation 97% on room air, blood pressure 139/62. CARDIOVASCULAR SYSTEM: S1 and S2 plus. RESPIRATORY SYSTEM: Normal vesicular breath sounds. ABDOMEN: Soft and nontender. Bowel sounds heard in all quadrants. EXTREMITIES: Without cyanosis or clubbing. Hip incision with dressing. CENTRAL NERVOUS SYSTEM: Awake and responsive. Cranial nerves 2 through 12 intact. Generalized weakness. LABORATORY VALUES: Show white count of 7.3, H and H are 9.3 and 29.8. Chemistry shows sodium 140, potassium 3.6, BUN and creatinine 16 and 1.79. These are from December 24. IMPRESSION: 1. Erosive esophagitis requiring blood transfusion. 2. 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 3. End-stage renal disease, on hemodialysis. 4. Coronary artery disease. 5. Hypertension. 6. Depression and anxiety. 7. Dyslipidemia. 8. Allergic rhinitis. PLAN: 1. Continue antibiotics with dialysis. 2. Wound care. 3. Physical therapy. 4. Nutritional support. 5. Orthopedic precautions. 6. Heart-healthy renal diet. 7. DVT and stress ulcer prophylaxis. 8. Decubitus precautions. 9. Routine laboratory values. She is a very difficult stick, so labs are usually done at dialysis. No family at bedside. Discussed with nursing. Job ID: [id number]
[2018-12-28] MEDS: Polyethylene Glycol 3350 17 GM Packet PO SCH (17:11)
[2018-12-28] MEDS: Loratadine 10 MG TAB PO SCH (20:57)
[2018-12-28] MEDS: Temazepam 15 MG CAP PO PRN (20:57)
[2018-12-28] MEDS: Pravastatin Sodium 20 MG TAB PO SCH (20:57)
[2018-12-28] MEDS: Cyclobenzaprine 10 MG TAB PO PRN (20:58)
[2018-12-29] MEDS: Ondansetron ODT 4 MG TAB PO PRN (07:42)
[2018-12-29] MEDS: HYDROcodone/Acetaminophen 7.5/325 mg Tablet PO PRN ×3 (07:43→21:00)
[2018-12-29] MEDS: Fluticasone Propionate Nasal Spray 16 gm Bottle NASAL SCH (07:46)
[2018-12-29] MEDS: buPROPion HCl 100 MG TAB PO SCH ×3 (08:25→20:19)
[2018-12-29] MEDS: Calcium Acetate 667 MG CAP PO SCH ×3 (08:25→16:54)
[2018-12-29] MEDS: Aspirin 81 mg Enteric Coated Tablet PO SCH ×2 (08:25→15:50)
[2018-12-29] MEDS: Carvedilol 25 MG TAB PO SCH ×3 (08:26→20:19)
[2018-12-29] MEDS: Docusate 100 MG CAP PO SCH ×3 (08:26→20:19)
[2018-12-29] MEDS: Escitalopram Oxalate 20 mg Tablet PO SCH ×2 (08:27→15:49)
[2018-12-29] MEDS: Folic Acid/Vit B Comp W-C PO SCH (08:27)
[2018-12-29 16:19] LABS: Anion Gap 20 mmol/L (10-20); BUN (Urea Nitrogen) 51 mg/dL (9.8-20.1); Calc. Creatinine Clearance 12 mL/min (70-130); Calcium 9.1 mg/dL (7.8-10.44); Carbon Dioxide 25 mmol/L (23-31); Chloride 97 mmol/L (98-107); Estimated GFR-MDRD 11; Glucose 79 mg/dL (80-115); Potassium 4.6 mmol/L (3.5-5.1); Sodium 137 mmol/L (136-145)
[2018-12-29] MEDS: Polyethylene Glycol 3350 17 GM Packet PO SCH (16:54)
[2018-12-29 17:05] LABS: #Basophils 0.2 thou/uL (0.0-0.2); #Eosinphils 1.5 thou/uL (0.0-0.7); #Lymphocytes 1.5 thou/uL (1.20-3.40); #Monocytes 0.5 thou/uL (0.11-0.59); %Basophils 2.3 % (0.0-1.0); %Eosinophils 19.2 % (0.0-10.0); %Lymphocytes 19.4 % (21.0-51.0); %Monocytes 6.6 % (0.0-10.0); %Neutrophils 52.5 % (42.0-75.0); Hemoglobin 9.3 g/dL (12.0-16.0); Mean Corpuscular HGB CONC 30.4 g/dL (32.0-36.0); Mean Corpuscular Hemoglobin 29.6 pg (27.0-31.0); Mean Corpuscular Volume 97.6 fL (78.0-98.0); Mean Platelet Volume 6.3 fL (7.4-10.4); Platelet Count 325 thou/uL (130-400); RBC Distribution Width 17.7 % (11.5-14.5); Red Blood Cell (RBC) Count 3.14 mill/uL (4.20-5.40); White Blood Cell (WBC) Count 7.6 thou/uL (4.8-10.8)
[2018-12-29] MEDS: Loratadine 10 MG TAB PO SCH (20:19)
[2018-12-29] MEDS: Pravastatin Sodium 20 MG TAB PO SCH (20:20)
[2018-12-29] MEDS: Temazepam 15 MG CAP PO PRN (21:00)
[2018-12-29] MEDS: Cyclobenzaprine 10 MG TAB PO PRN (21:00)
[2018-12-30] MEDS: HYDROcodone/Acetaminophen 7.5/325 mg Tablet PO PRN ×3 (08:09→20:56)
[2018-12-30] MEDS: Docusate 100 MG CAP PO SCH ×2 (08:09→20:55)
[2018-12-30] MEDS: Calcium Acetate 667 MG CAP PO SCH ×3 (08:09→17:46)
[2018-12-30] MEDS: Aspirin 81 mg Enteric Coated Tablet PO SCH (08:09)
[2018-12-30] MEDS: Carvedilol 25 MG TAB PO SCH ×2 (08:10→20:54)
[2018-12-30] MEDS: Escitalopram Oxalate 20 mg Tablet PO SCH (08:10)
[2018-12-30] MEDS: buPROPion HCl 100 MG TAB PO SCH ×2 (08:10→20:54)
[2018-12-30] MEDS: Fluticasone Propionate Nasal Spray 16 gm Bottle NASAL SCH (08:11)
[2018-12-30] MEDS: Folic Acid/Vit B Comp W-C PO SCH (08:12)
--- NOTE | 2018-12-30 10:23 | PRG ---
DATE OF SERVICE: 12/30/2018 SUBJECTIVE: Ms. Alarcon is doing well. She apparently noticed slightly increased pain in her left hip, so did not do as much with therapy yesterday, but feels back to normal. No fever or chills. No chest pain or shortness of breath. OBJECTIVE: VITAL SIGNS: She is afebrile. Heart rate 69, respirations 20, oxygen saturation 94% on room air, blood pressure 151/61. CARDIOVASCULAR: S1 and S2 plus. RESPIRATORY: Normal vesicular breath sounds. ABDOMEN: Soft, nontender. Bowel sounds heard in all quadrants. EXTREMITIES: Without cyanosis, clubbing. Peripheral pulses are palpable. CENTRAL NERVOUS SYSTEM: Awake and responsive. Cranial nerves 2 through 12 intact. Generalized weakness. IMPRESSION: 1. Recurrent MRSA infection of the right hip requiring explantation of the hardware. 2. Erosive esophagitis, requiring blood transfusion of stable. 3. End-stage renal disease, on hemodialysis. 4. Vancomycin with hemodialysis. 5. Coronary artery disease without angina. 6. Hypertension. 7. Depression and anxiety. 8. Dyslipidemia. 9. Allergic rhinitis. PLAN: 1. Continue antibiotics with dialysis. 2. Heart healthy diet. 3. Wound care. 4. DVT and stress ulcer prophylaxis. 5. Decubitus precautions. 6. Laboratory values at dialysis. 7. Physical therapy. 8. Monitor for any recurrence of infection. 9. Discussed with the patient and nursing in detail. All questions answered. Job ID: [id number]
[2018-12-30] MEDS: Polyethylene Glycol 3350 17 GM Packet PO SCH (17:46)
[2018-12-30] MEDS: Loratadine 10 MG TAB PO SCH (20:55)
[2018-12-30] MEDS: Pravastatin Sodium 20 MG TAB PO SCH (20:55)
[2018-12-30] MEDS: Cyclobenzaprine 10 MG TAB PO PRN (20:56)
[2018-12-30] MEDS: Temazepam 15 MG CAP PO PRN (20:56)
[2018-12-31] MEDS ORDERED: Activase 2 MG VIAL CATH SCH (06:30)
[2018-12-31] MEDS: Calcium Acetate 667 MG CAP PO SCH ×3 (08:10→17:55)
[2018-12-31] MEDS: Carvedilol 25 MG TAB PO SCH ×2 (10:22→21:07)
[2018-12-31] MEDS: buPROPion HCl 100 MG TAB PO SCH ×2 (10:22→21:10)
[2018-12-31] MEDS: Aspirin 81 mg Enteric Coated Tablet PO SCH (10:22)
[2018-12-31] MEDS: Docusate 100 MG CAP PO SCH ×2 (10:23→21:08)
[2018-12-31] MEDS: Escitalopram Oxalate 20 mg Tablet PO SCH (10:23)
[2018-12-31] MEDS: Fluticasone Propionate Nasal Spray 16 gm Bottle NASAL SCH (10:23)
[2018-12-31] MEDS: Folic Acid/Vit B Comp W-C PO SCH (10:23)
[2018-12-31] MEDS: HYDROcodone/Acetaminophen 7.5/325 mg Tablet PO PRN ×2 (14:57→21:09)
[2018-12-31] MEDS: Polyethylene Glycol 3350 17 GM Packet PO SCH (17:55)
[2018-12-31] MEDS: Loratadine 10 MG TAB PO SCH (21:07)
[2018-12-31] MEDS: Pravastatin Sodium 20 MG TAB PO SCH (21:08)
[2018-12-31] MEDS: Temazepam 15 MG CAP PO PRN (21:09)
[2018-12-31] MEDS: Cyclobenzaprine 10 MG TAB PO PRN (21:09)
[2019-01-01] MEDS: Carvedilol 25 MG TAB PO SCH ×2 (08:20→20:44)
[2019-01-01] MEDS: Docusate 100 MG CAP PO SCH ×2 (08:20→20:44)
[2019-01-01] MEDS: Aspirin 81 mg Enteric Coated Tablet PO SCH (08:20)
[2019-01-01] MEDS: buPROPion HCl 100 MG TAB PO SCH ×2 (08:20→20:44)
[2019-01-01] MEDS: Calcium Acetate 667 MG CAP PO SCH ×3 (08:20→16:59)
[2019-01-01] MEDS: Escitalopram Oxalate 20 mg Tablet PO SCH (08:21)
[2019-01-01] MEDS: Fluticasone Propionate Nasal Spray 16 gm Bottle NASAL SCH (08:21)
[2019-01-01] MEDS: Folic Acid/Vit B Comp W-C PO SCH (08:21)
[2019-01-01] MEDS: HYDROcodone/Acetaminophen 7.5/325 mg Tablet PO PRN ×3 (08:22→20:46)
[2019-01-01] MEDS: Ondansetron ODT 4 MG TAB PO PRN (12:22)
[2019-01-01] MEDS ORDERED: Mag-Al Plus 1200 MG/1200 MG/120 MG/30 ML UDCUP PO PRN (13:49)
--- NOTE | 2019-01-01 14:09 | PRG ---
DATE OF SERVICE: 01/01/2019 SUBJECTIVE: Ms. Alarcon is doing well except for heartburn. She denies any hematemesis, melena, or hematochezia. No other concerns or questions. OBJECTIVE: VITAL SIGNS: She is afebrile. Heart rate 76, respirations 16, oxygen saturation 97% on room air, blood pressure 170/73. CARDIOVASCULAR: S1 and S2 plus. RESPIRATORY: Normal vesicular breath sounds. ABDOMEN: Soft and nontender. Bowel sounds heard in all quadrants. EXTREMITIES: Without cyanosis or clubbing. Peripheral pulses are palpable. CENTRAL NERVOUS SYSTEM: Awake and responsive. Cranial nerves 2 through 12 intact. Generalized weakness. IMPRESSION: 1. Recurrent Methicillin-resistant Staphylococcus aureus infection of her right hip, requiring explantation of the hardware. 2. Erosive esophagitis on Protonix b.i.d. 3. End-stage renal disease, on hemodialysis. 4. Coronary artery disease. 5. Hypertension. 6. Dyslipidemia. 7. Allergic rhinitis. 8. Depression and anxiety. PLAN: 1. Add Maalox q.4 p.r.n. 2. Continue antibiotics with hemodialysis. 3. Wound care. 4. DVT and stress ulcer prophylaxis. 5. Decubitus precautions. 6. Routine laboratory values. 7. Heart healthy renal diet. 8. Continue physical therapy. 9. Discussed with the patient and nursing in detail, all questions answered. Job ID: [id number]
[2019-01-01] MEDS: Polyethylene Glycol 3350 17 GM Packet PO SCH (16:59)
[2019-01-01] MEDS: Pravastatin Sodium 20 MG TAB PO SCH (20:44)
[2019-01-01] MEDS: Loratadine 10 MG TAB PO SCH (20:45)
[2019-01-01] MEDS: Temazepam 15 MG CAP PO PRN (20:46)
[2019-01-01] MEDS: Cyclobenzaprine 10 MG TAB PO PRN (20:46)
[2019-01-02] MEDS: Calcium Acetate 667 MG CAP PO SCH ×3 (08:15→16:45)
[2019-01-02] MEDS: Escitalopram Oxalate 20 mg Tablet PO SCH (08:16)
[2019-01-02] MEDS: Aspirin 81 mg Enteric Coated Tablet PO SCH (08:16)
[2019-01-02] MEDS: Docusate 100 MG CAP PO SCH (08:16)
[2019-01-02] MEDS: buPROPion HCl 100 MG TAB PO SCH ×2 (08:16→21:04)
[2019-01-02] MEDS: Carvedilol 25 MG TAB PO SCH ×2 (08:16→21:04)
[2019-01-02] MEDS: Folic Acid/Vit B Comp W-C PO SCH (08:17)
[2019-01-02] MEDS: Fluticasone Propionate Nasal Spray 16 gm Bottle NASAL SCH (08:17)
[2019-01-02] MEDS: HYDROcodone/Acetaminophen 7.5/325 mg Tablet PO PRN ×3 (08:21→21:05)
[2019-01-02] MEDS ORDERED: Docusate 100 MG CAP PO PRN (14:18)
--- NOTE | 2019-01-02 14:37 | PRG ---
DATE OF SERVICE: 01/02/2019 SUBJECTIVE: Ms. Alarcon is doing well and denies any complaints. She states that she would like her stool softener as needed and not routine. The Maalox seems to be helping. No family at bedside. OBJECTIVE: VITAL SIGNS: She is afebrile. Heart rate 68, respirations 19, oxygen saturation 94% on room air, and blood pressure 137/84. CARDIOVASCULAR: S1 and S2 plus. RESPIRATORY: Normal vesicular breath sounds. ABDOMEN: Soft and nontender. Bowel sounds heard in all quadrants. EXTREMITIES: Without cyanosis or clubbing. Hip incision with dressing. CENTRAL NERVOUS SYSTEM: Awake and responsive. Cranial nerves 2 through 12 intact. Generalized weakness. IMPRESSION: 1. Recurrent methicillin-resistant Staphylococcus aureus infection of right hip, requiring explantation. 2. Erosive esophagitis, on Protonix b.i.d. 3. End-stage renal disease, on hemodialysis. 4. Coronary artery disease. 5. Hypertension. 6. Dyslipidemia. 7. Allergic rhinitis. PLAN: 1. Continue current medications, but change Colace to p.r.n. 2. Continue vancomycin with dialysis. 3. Wound care. 4. Orthopedic precautions. 5. Nutritional support. 6. DVT and stress ulcer prophylaxis. 7. Decubitus precautions. 8. Routine laboratory values with dialysis and she is a hard stick. Continue therapy. Job ID: [id number]
[2019-01-02] MEDS: Polyethylene Glycol 3350 17 GM Packet PO SCH (16:58)
[2019-01-02] MEDS: Loratadine 10 MG TAB PO SCH (21:04)
[2019-01-02] MEDS: Pravastatin Sodium 20 MG TAB PO SCH (21:04)
[2019-01-02] MEDS: Temazepam 15 MG CAP PO PRN (21:05)
[2019-01-02] MEDS: Cyclobenzaprine 10 MG TAB PO PRN (21:05)
[2019-01-03] MEDS: Calcium Acetate 667 MG CAP PO SCH ×3 (07:33→17:41)
[2019-01-03] MEDS: HYDROcodone/Acetaminophen 7.5/325 mg Tablet PO PRN ×3 (07:34→21:10)
[2019-01-03] MEDS: buPROPion HCl 100 MG TAB PO SCH ×2 (08:30→21:08)
[2019-01-03] MEDS: Aspirin 81 mg Enteric Coated Tablet PO SCH (08:30)
[2019-01-03] MEDS: Escitalopram Oxalate 20 mg Tablet PO SCH (08:31)
[2019-01-03] MEDS: Carvedilol 25 MG TAB PO SCH ×2 (08:31→21:08)
[2019-01-03] MEDS: Fluticasone Propionate Nasal Spray 16 gm Bottle NASAL SCH (08:32)
[2019-01-03] MEDS: Folic Acid/Vit B Comp W-C PO SCH (08:32)
[2019-01-03] MEDS: Polyethylene Glycol 3350 17 GM Packet PO SCH (17:41)
[2019-01-03] MEDS: Pravastatin Sodium 20 MG TAB PO SCH (21:09)
[2019-01-03] MEDS: Temazepam 15 MG CAP PO PRN (21:09)
[2019-01-03] MEDS: Loratadine 10 MG TAB PO SCH (21:09)
[2019-01-03] MEDS: Cyclobenzaprine 10 MG TAB PO PRN (21:10)
[2019-01-04] MEDS: Calcium Acetate 667 MG CAP PO SCH ×3 (08:12→16:51)
[2019-01-04] MEDS: Aspirin 81 mg Enteric Coated Tablet PO SCH (08:14)
[2019-01-04] MEDS: buPROPion HCl 100 MG TAB PO SCH ×2 (08:14→20:16)
[2019-01-04] MEDS: Escitalopram Oxalate 20 mg Tablet PO SCH (08:14)
[2019-01-04] MEDS: Carvedilol 25 MG TAB PO SCH ×2 (08:14→20:17)
[2019-01-04] MEDS: Fluticasone Propionate Nasal Spray 16 gm Bottle NASAL SCH (08:16)
[2019-01-04] MEDS: Folic Acid/Vit B Comp W-C PO SCH (08:17)
--- NOTE | 2019-01-04 17:48 | PRG ---
DATE OF SERVICE: 01/04/2019 SUBJECTIVE: Ms. Alarcon is doing well. Denies any complaints. Tolerating her therapy. She is hoping to get strong enough to return home. She has a followup appointment through orthopedic surgeon on . OBJECTIVE: VITAL SIGNS: She is afebrile. Heart rate is 71, respirations 16, oxygen saturation 97% on room air, and blood pressure 115/70. CARDIOVASCULAR SYSTEM: S1 and S2 plus. RESPIRATORY SYSTEM: Normal vesicular breath sounds. ABDOMEN: Soft and nontender. Bowel sounds heard in all quadrants. EXTREMITIES: Without cyanosis or clubbing. Hip incision is with dressing and is healthy. CENTRAL NERVOUS SYSTEM: Awake and responsive. Generalized weakness. IMPRESSION: 1. 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 2. Erosive esophagitis. 3. End-stage renal disease, on hemodialysis. 4. Coronary artery disease. 5. Hypertension. 6. Dyslipidemia. 7. Allergic rhinitis. PLAN: 1. Continue heart healthy renal diet. 2. Vancomycin with hemodialysis. 3. Incision care. 4. Decubitus precautions. 5. Physical therapy. 6. Orthopedic precautions. 7. Laboratory values with hemodialysis. 8. Continue PT/OT. 9. Discussed with the patient and nursing in detail and all questions answered. Job ID: [id number]
[2019-01-04] MEDS: Polyethylene Glycol 3350 17 GM Packet PO SCH (17:51)
[2019-01-04] MEDS: Pravastatin Sodium 20 MG TAB PO SCH (20:17)
[2019-01-04] MEDS: Loratadine 10 MG TAB PO SCH (20:17)
[2019-01-04] MEDS: Temazepam 15 MG CAP PO PRN (21:09)
[2019-01-04] MEDS: Cyclobenzaprine 10 MG TAB PO PRN (21:09)
[2019-01-04] MEDS: HYDROcodone/Acetaminophen 7.5/325 mg Tablet PO PRN (21:09)
[2019-01-05] MEDS: Fluticasone Propionate Nasal Spray 16 gm Bottle NASAL SCH (07:48)
[2019-01-05] MEDS: HYDROcodone/Acetaminophen 7.5/325 mg Tablet PO PRN ×3 (07:48→21:04)
[2019-01-05] MEDS ORDERED: clonazePAM 0.5 MG TAB PO PRN (11:29)
[2019-01-05] MEDS ORDERED: HYDROcodone/Acetaminophen 7.5/325 mg Tablet PO PRN (11:30)
[2019-01-05] MEDS ORDERED: Senokot S 8.6-50 MG TAB PO PRN (11:31)
[2019-01-05] MEDS ORDERED: Mag-Al Plus 1200 MG/1200 MG/120 MG/30 ML UDCUP PO PRN (11:32)
[2019-01-05] MEDS ORDERED: Vancomycin HCl 750 MG VIAL IVPB SCH (11:45)
[2019-01-05] MEDS: Calcium Acetate 667 MG CAP PO SCH ×3 (16:11→17:44)
[2019-01-05] MEDS: Escitalopram Oxalate 20 mg Tablet PO SCH (16:12)
[2019-01-05] MEDS: Folic Acid/Vit B Comp W-C PO SCH (16:12)
[2019-01-05] MEDS: buPROPion HCl 100 MG TAB PO SCH ×2 (16:12→20:05)
[2019-01-05] MEDS: Carvedilol 25 MG TAB PO SCH ×2 (16:12→20:05)
[2019-01-05] MEDS: Aspirin 81 mg Enteric Coated Tablet PO SCH (16:12)
[2019-01-05] MEDS: Polyethylene Glycol 3350 17 GM Packet PO SCH (17:44)
[2019-01-05] MEDS: Docusate 100 MG CAP PO PRN (17:50)
[2019-01-05] MEDS: Ondansetron ODT 4 MG TAB PO PRN (18:47)
[2019-01-05] MEDS: Loratadine 10 MG TAB PO SCH (20:06)
[2019-01-05] MEDS: Pravastatin Sodium 20 MG TAB PO SCH (20:06)
[2019-01-05] MEDS: Cyclobenzaprine 10 MG TAB PO PRN (21:04)
[2019-01-05] MEDS: Temazepam 15 MG CAP PO PRN (21:04)
[2019-01-06] MEDS: Fluticasone Propionate Nasal Spray 16 gm Bottle NASAL SCH (09:22)
[2019-01-06] MEDS: Aspirin 81 mg Enteric Coated Tablet PO SCH (09:23)
[2019-01-06] MEDS: Carvedilol 25 MG TAB PO SCH ×2 (09:23→21:29)
[2019-01-06] MEDS: Escitalopram Oxalate 20 mg Tablet PO SCH (09:23)
[2019-01-06] MEDS: Calcium Acetate 667 MG CAP PO SCH ×3 (09:23→17:03)
[2019-01-06] MEDS: buPROPion HCl 100 MG TAB PO SCH ×2 (09:24→21:31)
[2019-01-06] MEDS: Folic Acid/Vit B Comp W-C PO SCH (09:28)
[2019-01-06] MEDS: HYDROcodone/Acetaminophen 7.5/325 mg Tablet PO PRN ×2 (11:36→21:32)
[2019-01-06] MEDS: Polyethylene Glycol 3350 17 GM Packet PO SCH (17:11)
[2019-01-06] MEDS: Loratadine 10 MG TAB PO SCH (21:30)
[2019-01-06] MEDS: Pravastatin Sodium 20 MG TAB PO SCH (21:30)
[2019-01-06] MEDS: Temazepam 15 MG CAP PO PRN (21:31)
[2019-01-07] MEDS: HYDROcodone/Acetaminophen 7.5/325 mg Tablet PO PRN ×3 (07:51→20:32)
[2019-01-07] MEDS: Fluticasone Propionate Nasal Spray 16 gm Bottle NASAL SCH (07:51)
--- NOTE | 2019-01-07 11:04 | PRG ---
DATE OF SERVICE: 01/06/2019 SUBJECTIVE: Ms. Alarcon is doing well and denies any complaints. She is happy with her progress. She would like to go home next week if possible. We will discuss with therapy and see how much progress she is making further she will be safe and ready by then. OBJECTIVE: VITAL SIGNS: She is afebrile, heart rate 78, respirations 18, oxygen saturation 97% on room air, and blood pressure 140/69. CARDIOVASCULAR SYSTEM: S1 and S2 plus. RESPIRATORY SYSTEM: Normal vesicular breath sounds. ABDOMEN: Soft and nontender. Bowel sounds heard in all quadrants. EXTREMITIES: Without cyanosis or clubbing. CENTRAL NERVOUS SYSTEM: Awake and responsive. Cranial nerves 2 through 12 intact. Generalized weakness. IMPRESSION: 1. Right hip methicillin-resistant Staphylococcus aureus infection, recurrent, requiring explantation of hardware. 2. Erosive esophagitis. 3. End-stage renal disease, on hemodialysis. 4. Coronary artery disease. 5. Hypertension. 6. Dyslipidemia. PLAN: 1. Continue current medications. 2. Vancomycin with hemodialysis. 3. Physical therapy. 4. Orthopedic precautions. 5. DVT and stress ulcer prophylaxis. 6. Decubitus precautions. 7. Continue physical therapy. 8. Discharge planning. Job ID: [id number]
[2019-01-07] MEDS: Aspirin 81 mg Enteric Coated Tablet PO SCH (14:06)
[2019-01-07] MEDS: Calcium Acetate 667 MG CAP PO SCH ×2 (14:06→17:15)
[2019-01-07] MEDS: Carvedilol 25 MG TAB PO SCH ×2 (14:06→20:31)
[2019-01-07] MEDS: buPROPion HCl 100 MG TAB PO SCH ×2 (14:06→20:29)
[2019-01-07] MEDS: Escitalopram Oxalate 20 mg Tablet PO SCH (14:07)
[2019-01-07] MEDS: Folic Acid/Vit B Comp W-C PO SCH (14:07)
[2019-01-07] MEDS: Polyethylene Glycol 3350 17 GM Packet PO SCH (17:16)
[2019-01-07] MEDS: Pravastatin Sodium 20 MG TAB PO SCH (20:29)
[2019-01-07] MEDS: Loratadine 10 MG TAB PO SCH (20:30)
[2019-01-07] MEDS: Temazepam 15 MG CAP PO PRN (20:31)
[2019-01-08] MEDS: Calcium Acetate 667 MG CAP PO SCH ×3 (08:52→17:27)
[2019-01-08] MEDS: Fluticasone Propionate Nasal Spray 16 gm Bottle NASAL SCH (08:53)
[2019-01-08] MEDS: Escitalopram Oxalate 20 mg Tablet PO SCH (08:53)
[2019-01-08] MEDS: Carvedilol 25 MG TAB PO SCH ×2 (08:54→20:36)
[2019-01-08] MEDS: buPROPion HCl 100 MG TAB PO SCH ×2 (08:55→20:35)
[2019-01-08] MEDS: Aspirin 81 mg Enteric Coated Tablet PO SCH (08:55)
[2019-01-08] MEDS: Folic Acid/Vit B Comp W-C PO SCH (08:56)
[2019-01-08] MEDS: Polyethylene Glycol 3350 17 GM Packet PO SCH (17:27)
[2019-01-08] MEDS: Pravastatin Sodium 20 MG TAB PO SCH (20:34)
[2019-01-08] MEDS: Loratadine 10 MG TAB PO SCH (20:34)
[2019-01-08] MEDS: Temazepam 15 MG CAP PO PRN (20:36)
[2019-01-08] MEDS: HYDROcodone/Acetaminophen 7.5/325 mg Tablet PO PRN (20:36)
[2019-01-09] MEDS: Calcium Acetate 667 MG CAP PO SCH ×3 (08:23→16:58)
[2019-01-09] MEDS: Aspirin 81 mg Enteric Coated Tablet PO SCH (08:23)
[2019-01-09] MEDS: Escitalopram Oxalate 20 mg Tablet PO SCH (08:24)
[2019-01-09] MEDS: buPROPion HCl 100 MG TAB PO SCH ×2 (08:24→21:03)
[2019-01-09] MEDS: Fluticasone Propionate Nasal Spray 16 gm Bottle NASAL SCH (08:24)
[2019-01-09] MEDS: Carvedilol 25 MG TAB PO SCH ×2 (08:25→21:03)
[2019-01-09] MEDS: Folic Acid/Vit B Comp W-C PO SCH (08:26)
[2019-01-09] MEDS: Acetaminophen 500 MG TAB PO PRN (08:34)
[2019-01-09] MEDS: Ondansetron ODT 4 MG TAB PO PRN (09:09)
[2019-01-09] MEDS: Polyethylene Glycol 3350 17 GM Packet PO SCH (16:58)
--- NOTE | 2019-01-09 20:31 | PRG ---
DATE OF SERVICE: 01/09/2019 SUBJECTIVE: The patient feels well. No complaints. Feels that she hopefully should be able to go home this week as she has reached maximum hospital benefit, is able to transfer without any assistance. OBJECTIVE: VITAL SIGNS: Shows blood pressure is 176/77, temperature is 98.8, pulse 76, respirations 20, O2 saturations 99% on room air. LUNGS: Clear. CARDIAC: Regular rhythm. ABDOMEN: Soft, nontender. ASSESSMENT: 1. End-stage renal disease, on hemodialysis three times weekly. 2. Right hip methicillin-resistant Staphylococcus aureus infection, recurrent, requiring explantation of hardware with vancomycin on dialysis. 3. Erosive esophagitis. No evidence of recurrence. 4. Coronary artery disease, asymptomatic. 5. Hypertension, slightly uncontrolled now. We will monitor. Job ID: [id number]
[2019-01-09] MEDS: Pravastatin Sodium 20 MG TAB PO SCH (21:01)
[2019-01-09] MEDS: Loratadine 10 MG TAB PO SCH (21:02)
[2019-01-09] MEDS: Temazepam 15 MG CAP PO PRN (21:04)
[2019-01-09] MEDS: HYDROcodone/Acetaminophen 7.5/325 mg Tablet PO PRN (21:04)
[2019-01-10] MEDS: Ondansetron ODT 4 MG TAB PO PRN (06:14)
[2019-01-10] MEDS: Fluticasone Propionate Nasal Spray 16 gm Bottle NASAL SCH (07:20)
[2019-01-10] MEDS: HYDROcodone/Acetaminophen 7.5/325 mg Tablet PO PRN ×3 (07:20→20:54)
[2019-01-10] MEDS: Calcium Acetate 667 MG CAP PO SCH ×3 (09:20→16:56)
[2019-01-10] MEDS: Aspirin 81 mg Enteric Coated Tablet PO SCH (09:21)
[2019-01-10] MEDS: buPROPion HCl 100 MG TAB PO SCH ×2 (09:21→20:52)
[2019-01-10] MEDS: Escitalopram Oxalate 20 mg Tablet PO SCH (09:22)
[2019-01-10] MEDS: Folic Acid/Vit B Comp W-C PO SCH (09:22)
[2019-01-10] MEDS: Carvedilol 25 MG TAB PO SCH ×2 (09:22→20:52)
[2019-01-10] MEDS: Polyethylene Glycol 3350 17 GM Packet PO SCH (16:56)
[2019-01-10] MEDS: Temazepam 15 MG CAP PO PRN (20:53)
[2019-01-10] MEDS: Loratadine 10 MG TAB PO SCH (20:53)
[2019-01-10] MEDS: Pravastatin Sodium 20 MG TAB PO SCH (20:53)
[2019-01-11] MEDS: Calcium Acetate 667 MG CAP PO SCH ×3 (08:49→16:51)
[2019-01-11] MEDS: Aspirin 81 mg Enteric Coated Tablet PO SCH (08:49)
[2019-01-11] MEDS: Escitalopram Oxalate 20 mg Tablet PO SCH (08:50)
[2019-01-11] MEDS: Fluticasone Propionate Nasal Spray 16 gm Bottle NASAL SCH (08:50)
[2019-01-11] MEDS: Carvedilol 25 MG TAB PO SCH ×2 (08:50→20:42)
[2019-01-11] MEDS: buPROPion HCl 100 MG TAB PO SCH ×2 (08:50→20:42)
[2019-01-11] MEDS: Folic Acid/Vit B Comp W-C PO SCH (08:51)
[2019-01-11] MEDS: HYDROcodone/Acetaminophen 7.5/325 mg Tablet PO PRN ×2 (08:52→20:43)
--- NOTE | 2019-01-11 10:07 | PRG ---
DATE OF SERVICE: 01/11/2019 SUBJECTIVE: Ms. Alarcon is doing well. Denies any complaints. Resting comfortably. Discussed with therapy and they state that she is ready to be discharged. The patient needs to make some arrangements at home to get her cleaned up and get stocked with groceries and arrange for transportation, so once that is arranged, we will discharge her. She is doing well otherwise. OBJECTIVE: VITAL SIGNS: She is afebrile, heart rate 70, respirations 18, oxygen saturation 95% on room air, and blood pressure 149/72. CARDIOVASCULAR SYSTEM: S1 and S2 plus. RESPIRATORY SYSTEM: Normal vesicular breath sounds. ABDOMEN: Soft and nontender. Bowel sounds heard in all quadrants. EXTREMITIES: Without cyanosis or clubbing. Peripheral pulses are palpable. CENTRAL NERVOUS SYSTEM: Awake and responsive. Cranial nerves 2 through 12 intact. Generalized weakness. IMPRESSION: 1. Recurrent infection of her right hip, requiring explantation of hardware. 2. Erosive esophagitis. 3. End-stage renal disease, on hemodialysis. 4. Coronary artery disease. 5. Hypertension. 6. Dyslipidemia. PLAN: 1. Continue current medications including vancomycin and hemodialysis. 2. Hemodialysis per Nephrology. 3. Nutritional support with heart healthy diet. 4. DVT and stress ulcer prophylaxis. 5. Decubitus precautions. 6. Orthopedic precautions. 7. Physical therapy. 8. Routine laboratory values with dialysis. 9. Discharge planning. Job ID: [id number]
[2019-01-11 14:38] VITALS: BMI 22.2
[2019-01-11] MEDS: Polyethylene Glycol 3350 17 GM Packet PO SCH (16:51)
[2019-01-11] MEDS: Acetaminophen 500 MG TAB PO PRN (16:54)
[2019-01-11] MEDS: Pravastatin Sodium 20 MG TAB PO SCH (20:43)
[2019-01-11] MEDS: Loratadine 10 MG TAB PO SCH (20:43)
[2019-01-11] MEDS: Temazepam 15 MG CAP PO PRN (20:45)
[2019-01-12] MEDS: HYDROcodone/Acetaminophen 7.5/325 mg Tablet PO PRN ×3 (08:15→21:12)
[2019-01-12] MEDS: Fluticasone Propionate Nasal Spray 16 gm Bottle NASAL SCH (08:18)
[2019-01-12] MEDS: Aspirin 81 mg Enteric Coated Tablet PO SCH (10:55)
[2019-01-12] MEDS: Calcium Acetate 667 MG CAP PO SCH ×3 (10:55→17:47)
[2019-01-12] MEDS: Escitalopram Oxalate 20 mg Tablet PO SCH (10:56)
[2019-01-12] MEDS: Folic Acid/Vit B Comp W-C PO SCH (10:56)
[2019-01-12] MEDS: buPROPion HCl 100 MG TAB PO SCH ×2 (10:56→19:56)
[2019-01-12] MEDS: Carvedilol 25 MG TAB PO SCH ×2 (10:56→19:56)
[2019-01-12] MEDS: Polyethylene Glycol 3350 17 GM Packet PO SCH (17:47)
[2019-01-12] MEDS: Ondansetron ODT 4 MG TAB PO PRN (19:02)
[2019-01-12] MEDS: Pravastatin Sodium 20 MG TAB PO SCH (19:56)
[2019-01-12] MEDS: Loratadine 10 MG TAB PO SCH (19:56)
[2019-01-12] MEDS: Docusate 100 MG CAP PO PRN (19:57)
[2019-01-12] MEDS: Temazepam 15 MG CAP PO PRN (21:12)
[2019-01-12] MEDS: Cyclobenzaprine 10 MG TAB PO PRN (21:12)
[2019-01-13] MEDS: buPROPion HCl 100 MG TAB PO SCH (09:30)
[2019-01-13] MEDS: Calcium Acetate 667 MG CAP PO SCH ×2 (09:31→12:06)
[2019-01-13] MEDS: Folic Acid/Vit B Comp W-C PO SCH (09:31)
[2019-01-13] MEDS: Carvedilol 25 MG TAB PO SCH (09:31)
[2019-01-13] MEDS: Fluticasone Propionate Nasal Spray 16 gm Bottle NASAL SCH (09:32)
[2019-01-13] MEDS: Aspirin 81 mg Enteric Coated Tablet PO SCH (09:32)
[2019-01-13] MEDS: Escitalopram Oxalate 20 mg Tablet PO SCH (09:32)
[2019-01-13] MEDS: HYDROcodone/Acetaminophen 7.5/325 mg Tablet PO PRN (12:06)
[2019-01-13 13:01] VITALS: BP 174/72; TEMP 97
--- NOTE | 2019-01-13 14:08 | DIS ---
DATE OF ADMISSION: 12/17/2018 DATE OF DISCHARGE: 01/13/2019 PRINCIPAL DIAGNOSES: 1. 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 2. End-stage renal disease, on hemodialysis. 3. Coronary artery disease. 4. Dyslipidemia. 5. Osteoporosis. 6. Allergic rhinitis. 7. Depression and anxiety. COMPLICATIONS: None. ADVERSE REACTIONS: None. PROCEDURES: None. CONSULTATIONS: Physical Therapy and Occupational Therapy. HOSPITAL COURSE: The patient was admitted after developing drainage from the right hip site and cultures growing MRSA requiring explantation of hardware. She is back on vancomycin with hemodialysis. She was sent here for therapy. She is pretty much back to her baseline. Discussed with therapy and they stated that she is safe to go home because she always uses her wheelchair and continue vancomycin with hemodialysis. She states that she does not need any prescriptions. PHYSICAL EXAMINATION: VITAL SIGNS: On the day of discharge, she is afebrile, heart rate 77, respirations 20, oxygen saturation 95% on room air, and blood pressure 166/72. CARDIOVASCULAR SYSTEM: S1 and S2 plus. RESPIRATORY SYSTEM: Normal vesicular breath sounds. ABDOMEN: Soft and nontender. Bowel sounds heard in all quadrants. EXTREMITIES: Without cyanosis or clubbing. CENTRAL NERVOUS SYSTEM: Awake and responsive. Cranial nerves 2 through 12 intact and much improved deconditioning. LABORATORY DATA: Laboratory values were not done here because she is a difficult stick and it is usually done in dialysis. DISCHARGE MEDICATIONS: 1. Tylenol 500 q.6 hours p.r.n. fever or mild pain. 2. [place] 7.5/325 one to two tabs p.o. q.6 p.r.n. 3. Maalox Plus 30 mL p.o. q.6 p.r.n. 4. Ecotrin 81 mg daily. 5. Wellbutrin 100 mg b.i.d. 6. PhosLo 1334 mg p.o. t.i.d. 7. Coreg 12.5 mg b.i.d. 8. Klonopin 0.5 mg b.i.d. p.r.n. 9. Flexeril 10 mg daily p.r.n. 10. Lexapro 20 mg daily. 11. Flonase nasal spray one spray in each nostril daily. 12. Claritin 10 mg at bedtime. 13. Zofran ODT 4 mg q.6 p.r.n. 14. Protonix 40 mg b.i.d. 15. MiraLAX 17 g in 8 ounces of water daily. 16. Pravachol 10 mg at bedtime. 17. Restoril 50 mg at bedtime p.r.n. DISCHARGE INSTRUCTIONS: She was advised to limit her Maalox intake given her renal insufficiency. She is to follow up with orthopedic surgeon in 5 to 7 days and follow up with her PCP in 5 to 7 days and continue to keep her appointments with hemodialysis as she still gets vancomycin 750 mg with hemodialysis, end day to be decided by her orthopedic surgeon and infectious disease. The patient was advised to stick to a heart healthy renal diet. Activity restrictions per Orthopedic Surgery. She is to call us with any questions or concerns. She does not need any refills sent in. Total time spent on this discharge 38 minutes. Job ID: [id number]
== END 2019-01-13 16:00 | disposition home health service (06) | DRG 559 ==
LOC: NAV ACUTE 17:00 → UNDOADMIN 18:18
PROVIDERS: ADMIT Internal Medicine; ATTEND Internal Medicine
DX: T84.51XA Infection and inflammatory reaction due to internal right hip prosthesis, initial encounter (principal); N18.6 End stage renal disease; E46 Unspecified protein-calorie malnutrition; K22.10 Ulcer of esophagus without bleeding; I25.10 Atherosclerotic heart disease of native coronary artery without angina pectoris; M81.0 Age-related osteoporosis without current pathological fracture; Z96.652 Presence of left artificial knee joint; E78.5 Hyperlipidemia, unspecified; R53.81 Other malaise; B95.62 Methicillin resistant Staphylococcus aureus infection as the cause of diseases classified elsewhere; F32.9 Major depressive disorder, single episode, unspecified; F41.9 Anxiety disorder, unspecified; J30.9 Allergic rhinitis, unspecified; Z95.1 Presence of aortocoronary bypass graft; Z90.710 Acquired absence of both cervix and uterus; Z90.5 Acquired absence of kidney; Z88.8 Allergy status to other drugs, medicaments and biological substances; Z85.3 Personal history of malignant neoplasm of breast; Z90.11 Acquired absence of right breast and nipple; Z99.2 Dependence on renal dialysis; Z95.5 Presence of coronary angioplasty implant and graft; Z68.22 Body mass index [BMI] 22.0-22.9, adult
CPT/HCPCS: 80048; 80053; 85025; 85652; 86140; 97602; Q0162; Q4081